=== PATIENT | female | born 1940 | race Caucasian/White ===

== ENCOUNTER 2020-02-02 10:57 | Outpatient (CLI) | payer MEDICARE, SELFPAY ==
[2020-02-02 11:25] LABS: Basophils Percent Auto 0.2 % (0.2-1.2); Eosinophils Absolute Auto 0.1 K/mm3 (0-0.3); Eosinophils Percent Auto 2.6 % (0-4.4); Hematocrit 38.3 % (37.0-47.0); Hemoglobin 12.3 g/dL (12.0-15.0); Immature Granulocyte Absolute 0.01 K/mm3 (0.00-0.031); Immature Granulocyte Percent A 0.2 % (0-0.5); Lymphocytes Absolute Auto 1.15 K/mm3 (0.9-3.2); Lymphocytes Percent Auto 21.3 % (18.3-44.2); Mean Corpuscular HGB Conc 32.1 g/dl (32-36); Mean Corpuscular Hemoglobin 28.8 pg (26-34); Mean Corpuscular Volume 89.7 fl (80-100); Mean Platelet Volume 9.5 fl (7.4-10.4); Monocytes Absolute Auto 0.4 K/mm3 (0.1-0.6); Monocytes Percent Auto 7.2 % (2.6-8.5); Neutrophils Absolute Auto 3.7 K/mm3 (1.3-6.7); Neutrophils Percent Auto 68.5 % (45.5-73.1); Platelet Count Result 273 k/mm3 (150-375); Red Blood Count 4.27 M/mm3 (4.2-5.4); Red Cell Distribution Width 15.8 % (11.5-14.5); White Blood Count 5.4 K/mm3 (4.5-10.0)
[2020-02-02 11:43] LABS: Alanine Aminotransferase 28 U/L (4-35); Albumin Level 3.9 g/dL (3.5-5.1); Alkaline Phosphatase 118 U/L (38-126); Aspartate Amino Transferase 38 U/L (14-36); Bilirubin,Total 0.3 mg/dL (0.2-1.3); Blood Urea Nitrogen 13 mg/dL (7-17); Calcium 8.7 mg/dL (8.4-10.2); Carbon Dioxide 25 mmol/L (22-30); Chloride 106 mmol/L (98-107); Estimated Glomerular Filt Rate > 60; Glucose 93 mg/dL (65-105); Hemoglobin A1C 5.5 % (<5.7); Potassium 4.2 mmol/L (3.4-5.0); Sodium 138 mmol/L (137-145)
== END 2020-02-02 10:58 | disposition home or self-care (01) ==
LOC: ANHLAB 11:09
PROVIDERS: PCP Nurse Practitioner; Visit Provider Nurse Practitioner
DX: R63.4 Abnormal weight loss (principal); R73.9 Hyperglycemia, unspecified; R53.83 Other fatigue; R19.7 Diarrhea, unspecified
CPT/HCPCS: 36415; 80053; 83036; 84443; 85025

== ENCOUNTER 2020-02-04 11:45 | Outpatient (CLI) | payer MEDICARE, SELFPAY | END 2020-02-04 11:46 | disposition home or self-care (01) | PROVIDERS: PCP Nurse Practitioner; Visit Provider Nurse Practitioner | DX: R63.4 Abnormal weight loss (principal); R19.7 Diarrhea, unspecified; R53.83 Other fatigue | CPT/HCPCS: 87045; 87046; 87177; 87209; 87324; 87427 ==

== ENCOUNTER 2020-11-17 11:41 | Outpatient (CLI) | payer MEDICARE, SELFPAY ==
[2020-11-17 11:57] LABS: Hematocrit 38.7 % (37.0-47.0); Hemoglobin 12.9 g/dL (12.0-15.0); Mean Corpuscular HGB Conc 33.3 g/dl (32-36); Mean Corpuscular Hemoglobin 32.3 pg (26-34); Mean Platelet Volume 9.3 fl (7.4-10.4); Platelet Count Result 293 k/mm3 (150-375); Red Blood Count 3.99 M/mm3 (4.2-5.4); Red Cell Distribution Width 13.8 % (11.5-14.5); White Blood Count 5.7 K/mm3 (4.5-10.0)
[2020-11-17 12:06] LABS: Alanine Aminotransferase 31 U/L (4-35); Alkaline Phosphatase 113 U/L (38-126); Anion Gap 5 mmol/L (8-16); Aspartate Amino Transferase 42 U/L (14-36); Bilirubin,Total 0.5 mg/dL (0.2-1.3); Blood Urea Nitrogen 12 mg/dL (7-17); Calcium 8.5 mg/dL (8.4-10.2); Carbon Dioxide 28 mmol/L (22-30); Chloride 102 mmol/L (98-107); Estimated Glomerular Filt Rate > 60; Glucose 104 mg/dL (65-105); Potassium 4.2 mmol/L (3.4-5.0); Sodium 135 mmol/L (137-145)
[2020-11-17 12:59] LABS: Free T4 Free Thyroxine 1.71 ng/mL (0.78-2.19)
== END 2020-11-17 11:42 | disposition home or self-care (01) ==
PROVIDERS: PCP Family Medicine; Visit Provider Nurse Practitioner Family
DX: R63.4 Abnormal weight loss (principal); E03.9 Hypothyroidism, unspecified
CPT/HCPCS: 36415; 80053; 84439; 84443; 85027

== ENCOUNTER 2021-07-09 13:44 | Outpatient (CLI) | payer MEDICARE, SELFPAY ==
--- NOTE | ~2021-07-09 | DEXA_ITS ---
Bone Density Report Name: China Green Age: 81 Sex: Female Ethnicity: White Date of : 1940 Indication: postmenopausal osteoporosis; monitoring treatment; height loss; prior fracture; hysterectomy; Referring Provider: Ashley Tapia Study: Bone densitometry was performed. Exam Date: July 09, 2021 Accession number: [id number] Bone Density: Region BMD T-score Z-score Classification AP Spine (L1-L4) 0.503 -4.9 -2.3 Osteoporosis Femoral Neck (Left) 0.417 -3.9 -1.6 Osteoporosis Total Hip (Left) 0.474 -3.8 -1.8 Osteoporosis World Health Organization criteria for BMD impression classify patients as: Normal (T-score at or above -1.0), Osteopenia (T-score between -1.0 and -2.5), or Osteoporosis (T-score at or below -2.5). 10-year Fracture Risk: FRAX not reported because: Some T-score for Spine Total or Hip Total or Femoral Neck at or below -2.5 Prior hip or vertebral fracture Treated for osteopor Previous Exams: Region Exam Age BMD T-score BMD Change BMD Change Date g/cm2 vs Baseline vs Previous AP Spine(L1-L4) 07/09/2021 81 0.503 -4.9 -0.173(-25.6%) -0.173(-25.6%) 03/30/2008 68 0.676 -3.4 Total Hip(Left) 07/09/2021 81 0.474 -3.8 -0.225(-32.2%) -0.225(-32.2%) 03/30/2008 68 0.699 -2.0 *Denotes significance at 95% confidence level, LSC for AP Spine = 0.022 g/cm2, LSC for Total Hip = 0.027 g/cm2 Clinical Information Provided by Patient: Have had a previous hip or vertebral fracture Has had a low trauma fracture Is being treated for osteoporosis Has used the following medications: Vitamin D, Calcium Has the following medical conditions: Hysterectomy Patient maximum height was 67 Drinks caffeinated beverages Onset of menses at age 14 Number of children 3 Impression: The patient has established osteoporosis, based on the Total Spine T-score and the existence of a prior fracture. The patient has risk factors, including: previous fracture. No significant bone loss was observed. Discussion: PATIENT UNDER TREATMENT WITH NO SIGNIFICANT BMD LOSS SINCE LAST EXAM. In an untreated patient, BMD typically declines with age. A lack of decline or gain is usually a sign that treatment is efficacious and fracture risk is reduced. It is important to ask patients whether they are taking their medications and to encourage continued and appropriate compliance with their osteoporosis therapies to reduce fracture risk. It is also important to review their risk factors and encourage appropriate calcium and vitamin D intakes, exercise, fall
--- NOTE | ~2021-07-09 | MM_ITS ---
EXAMINATION: MM screening luis BI w lucia HISTORY: Screening TECHNIQUE: Craniocaudal and mediolateral oblique 3-D tomosynthesis images were obtained and synthetic 2-D images were generated. CAD analysis was submitted and interpreted. COMPARISON: No prior mammogram is available for comparison at this institution. BREAST PARENCHYMAL COMPOSITION: The breasts are extremely dense, which lowers the sensitivity of mamm ography FINDINGS: There is no evidence of suspicious mass, calcification, or architectural distortion to sugg est malignancy in either breast. There has been no suspicious interval change. IMPRESSION: 1. No mammographic evidence of malignancy. 2. Recommend routine screening mammography in one year. BI-RADS Category 1: Negative Reviewed, dictated and finalized at location A.
== END 2021-07-09 13:45 | disposition home or self-care (01) ==
LOC: ANHIMG 13:46
PROVIDERS: PCP Family Medicine; Visit Provider Family Medicine
DX: Z12.31 Encounter for screening mammogram for malignant neoplasm of breast (principal); Z78.0 Asymptomatic menopausal state; M81.0 Age-related osteoporosis without current pathological fracture
CPT/HCPCS: 77063; 77067; 77080

== ENCOUNTER 2021-11-19 11:07 | Outpatient (CLI) | payer MEDICARE, SELFPAY ==
[2021-11-19 12:08] LABS: Alanine Aminotransferase 41 U/L (4-35); Albumin Level 4.3 g/dL (3.5-5.1); Alkaline Phosphatase 107 U/L (38-126); Anion Gap 5 mmol/L (8-16); Aspartate Amino Transferase 50 U/L (14-36); Bilirubin,Total 0.4 mg/dL (0.2-1.3); Blood Urea Nitrogen 18 mg/dL (7-17); Carbon Dioxide 25 mmol/L (22-30); Chloride 108 mmol/L (98-107); Estimated Glomerular Filt Rate > 60; Glucose 100 mg/dL (65-110); Potassium 4.7 mmol/L (3.4-5.0); Sodium 138 mmol/L (137-145)
[2021-11-19 12:54] LABS: Vitamin D 25 Hydroxy 40.6 ng/mL
== END 2021-11-19 11:08 | disposition home or self-care (01) ==
PROVIDERS: PCP Family Medicine; Visit Provider Family Medicine
DX: E87.5 Hyperkalemia (principal); E55.9 Vitamin D deficiency, unspecified; E03.9 Hypothyroidism, unspecified
CPT/HCPCS: 36415; 80053; 82306; 84443

== ENCOUNTER 2022-01-22 13:16 | Outpatient (CLI) | payer MEDICARE, SELFPAY ==
[2022-01-22 13:49] LABS: Alanine Aminotransferase 29 U/L (4-35); Alkaline Phosphatase 74 U/L (38-126); Anion Gap 6 mmol/L (8-16); Aspartate Amino Transferase 45 U/L (14-36); Bilirubin,Total 0.3 mg/dL (0.2-1.3); Blood Urea Nitrogen 14 mg/dL (7-17); Calcium 8.1 mg/dL (8.4-10.2); Carbon Dioxide 27 mmol/L (22-30); Chloride 106 mmol/L (98-107); Estimated Glomerular Filt Rate > 60; Glucose 95 mg/dL (65-110); Potassium 4.1 mmol/L (3.4-5.0); Sodium 139 mmol/L (137-145)
== END 2022-01-22 13:17 | disposition home or self-care (01) ==
LOC: ANHLAB 13:19
PROVIDERS: PCP Family Medicine; Visit Provider Family Medicine
DX: R74.8 Abnormal levels of other serum enzymes (principal)
CPT/HCPCS: 36415; 80053

== ENCOUNTER 2022-05-21 11:05 | Outpatient (CLI) | payer MEDICARE, SELFPAY ==
[2022-05-21 18:37] LABS: Basophils Percent Auto 0.4 % (0.2-1.2); Eosinophils Absolute Auto 0.2 K/mm3 (0-0.3); Eosinophils Percent Auto 3.9 % (0-4.4); Hemoglobin 12.6 g/dL (12.0-15.0); Immature Granulocyte Absolute 0.01 K/mm3 (0.00-0.031); Immature Granulocyte Percent A 0.2 % (0-0.5); Lymphocytes Absolute Auto 1.16 K/mm3 (0.9-3.2); Lymphocytes Percent Auto 20.5 % (18.3-44.2); Mean Corpuscular HGB Conc 31.5 g/dl (32-36); Mean Corpuscular Volume 95.2 fl (80-100); Mean Platelet Volume 9.9 fl (7.4-10.4); Monocytes Absolute Auto 0.5 K/mm3 (0.1-0.6); Monocytes Percent Auto 8.1 % (2.6-8.5); Neutrophils Absolute Auto 3.8 K/mm3 (1.3-6.7); Neutrophils Percent Auto 66.9 % (45.5-73.1); Platelet Count Result 355 k/mm3 (150-375); Red Cell Distribution Width 13.4 % (11.5-14.5); White Blood Count 5.7 K/mm3 (4.5-10.0)
[2022-05-21 18:49] LABS: Alanine Aminotransferase 29 U/L (6-35); Albumin Level 4.3 g/dL (3.5-5.1); Alkaline Phosphatase 85 U/L (38-126); Anion Gap 8 mmol/L (8-16); Aspartate Amino Transferase 42 U/L (14-36); Bilirubin,Total 0.4 mg/dL (0.2-1.3); Blood Urea Nitrogen 17 mg/dL (7-17); Calcium 8.7 mg/dL (8.4-10.2); Carbon Dioxide 29 mmol/L (22-30); Chloride 101 mmol/L (98-107); Cholesterol 182 mg/dL (0-200); Estimated Glomerular Filt Rate > 60; Glucose 87 mg/dL (65-110); HDL Direct 40 mg/dL; Potassium 4.6 mmol/L (3.4-5.0); Sodium 138 mmol/L (137-145); Triglycerides 86 mg/dL (<150)
[2022-05-21 18:59] LABS: LDL Cholesterol Direct 92 mg/dL
[2022-05-21 19:39] LABS: Vitamin D 25 Hydroxy 58.3 ng/mL
== END 2022-05-21 11:06 | disposition home or self-care (01) ==
LOC: ANHGOSHLAB 11:10
PROVIDERS: PCP Family Medicine; Visit Provider Family Medicine
DX: E03.9 Hypothyroidism, unspecified (principal); E55.9 Vitamin D deficiency, unspecified; F41.9 Anxiety disorder, unspecified; R74.8 Abnormal levels of other serum enzymes; Z13.220 Encounter for screening for lipoid disorders
CPT/HCPCS: 36415; 80053; 80061; 82306; 84443; 85025

== ENCOUNTER 2022-12-03 14:53 | Outpatient (CLI) | payer MEDICARE, SELFPAY ==
[2022-12-03 19:09] LABS: Alanine Aminotransferase 31 U/L (6-35); Albumin Level 3.7 g/dL (3.5-5.1); Alkaline Phosphatase 86 U/L (38-126); Anion Gap 5 mmol/L (8-16); Aspartate Amino Transferase 43 U/L (14-36); Bilirubin,Total 0.4 mg/dL (0.2-1.3); Blood Urea Nitrogen 17 mg/dL (7-17); Calcium 8.1 mg/dL (8.4-10.2); Carbon Dioxide 30 mmol/L (22-30); Chloride 100 mmol/L (98-107); Estimated Glomerular Filt Rate > 60; Glucose 91 mg/dL (65-110); Potassium 4.3 mmol/L (3.4-5.0); Sodium 135 mmol/L (137-145)
== END 2022-12-03 14:54 | disposition home or self-care (01) ==
LOC: ANHGOSHLAB 14:55
PROVIDERS: PCP Family Medicine; Visit Provider Family Medicine
DX: E03.9 Hypothyroidism, unspecified (principal); R74.8 Abnormal levels of other serum enzymes
CPT/HCPCS: 36415; 80053; 84443

== ENCOUNTER → 2023-04-08 13:32 | Outpatient (CLI) | payer MEDICARE, SELFPAY ==
--- NOTE | ~2023-04-08 | XR_ITS ---
XR mandible min 4V 04/08/2023 13:48 Indication: Left-sided jaw pain Procedure: 5 views of the mandible Comparison: No prior studies for comparison. Findings: Osteopenia. Orbits are grossly intact. No focal skull abnormalities. No acute mandibular fr acture. Mastoids are pneumatized. Paranasal sinuses are grossly unremarkable. No significant nasal se ptal deviation. Impression: 1: No acute abnormality of the mandible. If there is continued concern for fracture, consider correla tion with CT. Reviewed, dictated and finalized at location [] Impression: 1: No acute abnormality of the mandible. If there is continued concern for frac ture, consider correlation with CT.
== END ==
PROVIDERS: PCP Family Medicine; Visit Provider Nurse Practitioner Family
DX: R68.84 Jaw pain (principal); G89.29 Other chronic pain
CPT/HCPCS: 70110

== ENCOUNTER 2023-05-26 10:06 | Outpatient (CLI) | payer MEDICARE, SELFPAY ==
[2023-05-26 19:17] LABS: Alanine Aminotransferase 48 U/L (6-35); Albumin Level 4.1 g/dL (3.5-5.1); Alkaline Phosphatase 100 U/L (38-126); Anion Gap 7 mmol/L (8-16); Aspartate Amino Transferase 63 U/L (14-36); Bilirubin,Total 0.4 mg/dL (0.2-1.3); Blood Urea Nitrogen 18 mg/dL (7-17); Calcium 9.1 mg/dL (8.4-10.2); Carbon Dioxide 28 mmol/L (22-30); Chloride 102 mmol/L (98-107); Cholesterol 205 mg/dL (0-200); Estimated Glomerular Filt Rate > 60; Glucose 77 mg/dL (65-110); HDL Direct 32 mg/dL; Potassium 5.4 mmol/L (3.4-5.0); Sodium 137 mmol/L (137-145); Triglycerides 101 mg/dL (<150)
[2023-05-26 19:23] LABS: Basophils Percent Auto 0.2 % (0.2-1.2); Eosinophils Absolute Auto 0.5 K/mm3 (0-0.3); Eosinophils Percent Auto 8.3 % (0-4.4); Hematocrit 40.1 % (37.0-47.0); Hemoglobin 12.9 g/dL (12.0-15.0); Immature Granulocyte Absolute 0.01 K/mm3 (0.00-0.031); Immature Granulocyte Percent A 0.2 % (0-0.5); Lymphocytes Absolute Auto 1.23 K/mm3 (0.9-3.2); Lymphocytes Percent Auto 22.3 % (18.3-44.2); Mean Corpuscular HGB Conc 32.2 g/dl (32-36); Mean Corpuscular Hemoglobin 32.3 pg (26-34); Mean Corpuscular Volume 100.3 fl (80-100); Mean Platelet Volume 10.5 fl (7.4-10.4); Monocytes Absolute Auto 0.5 K/mm3 (0.1-0.6); Monocytes Percent Auto 9.4 % (2.6-8.5); Neutrophils Absolute Auto 3.3 K/mm3 (1.3-6.7); Neutrophils Percent Auto 59.6 % (45.5-73.1); Platelet Count Result 366 k/mm3 (150-375); Red Cell Distribution Width 14.8 % (11.5-14.5); White Blood Count 5.5 K/mm3 (4.5-10.0)
[2023-05-26 19:29] LABS: LDL Cholesterol Direct 132 mg/dL
[2023-05-26 20:06] LABS: Vitamin B12 < 159.0 pg/mL (239-931)
[2023-05-26 20:29] LABS: Vitamin D 25 Hydroxy 14.2 ng/mL
== END 2023-05-26 10:07 | disposition home or self-care (01) ==
LOC: ANHGOSHLAB 10:08
PROVIDERS: PCP Family Medicine; Visit Provider Family Medicine
DX: E78.5 Hyperlipidemia, unspecified (principal); Z79.899 Other long term (current) drug therapy; E55.9 Vitamin D deficiency, unspecified; E03.9 Hypothyroidism, unspecified; E53.8 Deficiency of other specified B group vitamins; R63.4 Abnormal weight loss
CPT/HCPCS: 36415; 80053; 80061; 82306; 82607; 84443; 85025

== ENCOUNTER 2023-11-18 11:43 | Outpatient (CLI) | payer MEDICARE, OTHER, SELFPAY ==
[2023-11-18 15:00] LABS: Vitamin D 25 Hydroxy 27.6 ng/mL
[2023-11-18 15:06] LABS: Alanine Aminotransferase 61 U/L (6-35); Albumin Level 3.4 g/dL (3.5-5.1); Alkaline Phosphatase 114 U/L (38-126); Anion Gap 6 mmol/L (8-16); Aspartate Amino Transferase 65 U/L (14-36); Bilirubin,Total 0.3 mg/dL (0.2-1.3); Blood Urea Nitrogen 23 mg/dL (7-17); Calcium 8.7 mg/dL (8.4-10.2); Carbon Dioxide 27 mmol/L (22-30); Chloride 106 mmol/L (98-107); Estimated Glomerular Filt Rate > 60; Glucose 89 mg/dL (65-110); Potassium 4.3 mmol/L (3.4-5.0); Sodium 139 mmol/L (137-145)
== END 2023-11-18 11:44 | disposition home or self-care (01) ==
LOC: ANHGOSHLAB 11:45
PROVIDERS: PCP Family Medicine; Visit Provider Family Medicine
DX: E03.9 Hypothyroidism, unspecified (principal); E55.9 Vitamin D deficiency, unspecified; R74.8 Abnormal levels of other serum enzymes
CPT/HCPCS: 36415; 80053; 82306; 84439; 84443; 84480

== ENCOUNTER 2024-02-18 09:41 | Outpatient (CLI) | payer MEDICARE, OTHER, SELFPAY ==
--- NOTE | ~2024-02-18 | DEXA_ITS ---
Bone Density Report Name: CHARLEEN BERNSTEIN Age: 83 Sex: Female Ethnicity: White Date of : 1940 Indication: postmenopausal osteoporosis; parental hip fracture; height loss; history of glucocorticoids; prior fracture; hysterectomy; Referring Provider: ADRY GREGORY Study: Bone densitometry was performed. Exam Date: February 18, 2024 Accession number: [id number] Bone Density: Region BMD T-score Z-score Classification AP Spine(L1, L2, L3) 0.464 -5.0 -2.3 Osteoporosis Femoral Neck (Left) 0.480 -3.3 -0.9 Osteoporosis Total Hip (Left) 0.456 -4.0 -1.8 Osteoporosis World Health Organization criteria for BMD impression classify patients as: Normal (T-score at or above -1.0), Osteopenia (T-score between -1.0 and -2.5), or Osteoporosis (T-score at or below -2.5). 10-year Fracture Risk: FRAX not reported because: Some T-score for Spine Total or Hip Total or Femoral Neck at or below -2.5 Prior hip or vertebral fracture Previous Exams: Region Exam Age BMD T-score BMD Change BMD Change Date g/cm2 vs Baseline vs Previous AP Spine (L1-L3) 02/18/2024 83 0.464 -5.0 -0.055 (-10.6% -0.055 (-10.6% 07/09/2021 81 0.519 -4.5 Total Hip(Left) 02/18/2024 83 0.456 -4.0 -0.019 (-3.9%) -0.019 (-3.9%) 07/09/2021 81 0.474 -3.8 *Denotes significance at 95% confidence level, LSC for AP Spine = 0.022 g/cm2, LSC for Total Hip = 0.027 g/cm2 Clinical Information Provided by Patient: Have had a previous hip or vertebral fracture Has had a low trauma fracture Parent has had a hip fracture Has taken Glucocorticoids Has used the following medications: Prolia (i.e. denosumab), Vitamin D Has the following medical conditions: Hysterectomy, ENLARGED THYROID Patient maximum height was 67 Drinks caffeinated beverages Onset of menses at age 13 Number of children 3 Impression: The patient has established osteoporosis, based on the Total Spine T-score and the existence of a prior fracture. The patient has risk factors, including: parental hip fracture, previous fracture, history of glucocorticoid therapy. The BMD for the AP Spine (L1-L3) decreased, changing by -10.6% since the last DXA exam. Discussion: HIGH RISK OF FRACTURE. BONE DENSITY IS UNDESIRABLY LOW AT ONE OR MORE SKELETAL SITES, CONSISTENT WITH POSTMENOPAUSAL OSTEOPOROSIS. This patient's lowest T-score, in a patient who has previously fractured, meets the World Health Organization's (WHO) criteria for severe osteoporosis. In untreated patients, the risk of osteoporotic fracture increases heber
== END 2024-02-18 09:42 | disposition home or self-care (01) ==
LOC: ANHIMG 09:42
PROVIDERS: PCP Family Medicine; Visit Provider Family Medicine
DX: Z78.0 Asymptomatic menopausal state (principal); M81.0 Age-related osteoporosis without current pathological fracture
CPT/HCPCS: 77080

== ENCOUNTER 2024-06-09 10:01 | Outpatient (CLI) | payer MEDICARE, OTHER, SELFPAY ==
[2024-06-09 12:51] LABS: Basophils Percent Auto 0.2 % (0.2-1.2); Eosinophils Absolute Auto 0.1 K/mm3 (0-0.3); Eosinophils Percent Auto 2.1 % (0-4.4); Hematocrit 39.8 % (37.0-47.0); Hemoglobin 12.5 g/dL (12.0-15.0); Immature Granulocyte Absolute 0.01 K/mm3 (0.00-0.031); Immature Granulocyte Percent A 0.2 % (0-0.5); Lymphocytes Absolute Auto 1.13 K/mm3 (0.9-3.2); Lymphocytes Percent Auto 18.6 % (18.3-44.2); Mean Corpuscular HGB Conc 31.4 g/dl (32-36); Mean Corpuscular Hemoglobin 28.1 pg (26-34); Mean Corpuscular Volume 89.4 fl (80-100); Mean Platelet Volume 10.7 fl (7.4-10.4); Monocytes Absolute Auto 0.4 K/mm3 (0.1-0.6); Monocytes Percent Auto 6.6 % (2.6-8.5); Neutrophils Absolute Auto 4.4 K/mm3 (1.3-6.7); Neutrophils Percent Auto 72.3 % (45.5-73.1); Platelet Count Result 311 k/mm3 (150-375); Red Blood Count 4.45 M/mm3 (4.2-5.4); Red Cell Distribution Width 14.9 % (11.5-14.5); White Blood Count 6.1 K/mm3 (4.5-10.0)
[2024-06-09 12:57] LABS: Cholesterol 172 mg/dL (0-200); HDL Direct 33 mg/dL; Triglycerides 113 mg/dL (<150)
[2024-06-09 13:02] LABS: Albumin Level 3.8 g/dL (3.5-5.1); Anion Gap 9 mmol/L (4-12); Blood Urea Nitrogen 18 mg/dL (7-17); Calcium 8.6 mg/dL (8.4-10.2); Carbon Dioxide 24 mmol/L (22-30); Chloride 106 mmol/L (98-107); Estimated Glomerular Filt Rate > 60; Glucose 92 mg/dL (65-110); Potassium 4.3 mmol/L (3.4-5.0); Sodium 139 mmol/L (137-145)
[2024-06-09 13:07] LABS: Parathyroid Intact 125.2 pg/mL (7.5-53.5)
[2024-06-09 13:08] LABS: LDL Cholesterol Direct 115 mg/dL
[2024-06-09 13:37] LABS: Free T4 Free Thyroxine 1.64 ng/mL (0.78-2.19); Vitamin D 25 Hydroxy 16.3 ng/mL
[2024-06-11 02:19] LABS: Protein, Total 7.4 g/dL (6.1-8.1)
[2024-06-11 08:15] LABS: Triiodothyronine T3 Free 3.7 pg/mL (2.3-4.2)
[2024-06-11 12:03] LABS: Albumin 3.6 g/dL (3.8-4.8); Alpha 1 Globulin 0.3 g/dL (0.2-0.3); Alpha 2 Globulin 0.7 g/dL (0.5-0.9); Beta 1 Globulin 0.5 g/dL (0.4-0.6); Gamma Globulin 1.8 g/dL (0.8-1.7)
[2024-06-14 19:13] LABS: Immunofixation, Serum Normal pattern.
== END 2024-06-09 10:02 | disposition home or self-care (01) ==
PROVIDERS: Nurse Practitioner Family; PCP Family Medicine; Visit Provider Internal Medicine Endocrinology, Diabetes & Metabolism
DX: E03.9 Hypothyroidism, unspecified (principal); E55.9 Vitamin D deficiency, unspecified; M81.0 Age-related osteoporosis without current pathological fracture; R63.4 Abnormal weight loss; E04.9 Nontoxic goiter, unspecified; I10 Essential (primary) hypertension; E78.5 Hyperlipidemia, unspecified
CPT/HCPCS: 36415; 80061; 80069; 82306; 83970; 84155; 84165; 84439; 84443; 84481; 85025; 86334

== ENCOUNTER 2024-06-14 11:50 | Outpatient (NON) | payer MEDICARE, OTHER, SELFPAY ==
[2024-06-14 14:37] LABS: Total Volume 24 Hour Urine 1500 ml
[2024-06-14 14:50] LABS: Creatinine 24 Hour Urine 0.5 gm/24 (0.8-1.8); Creatinine Urine 36.1 mg/dL
[2024-06-15 15:18] LABS: Creatinine, 24 Hr Urine 0.56 g/24 h (0.50-2.15); Total Protein/Creatinine Ratio 568 mg/g creat (<150)
[2024-06-18 11:39] LABS: Abnormal Protein Band 1 78 mg/24 h (NONE DETECTED); Albumin 24 Hr Urine 15 %
[2024-06-24 12:37] LABS: Total Volume 1500 mL
== END 2024-06-14 11:51 | disposition home or self-care (01) ==
LOC: ANHGOSHLAB 11:52
PROVIDERS: PCP Family Medicine; Visit Provider Internal Medicine Endocrinology, Diabetes & Metabolism
DX: M81.0 Age-related osteoporosis without current pathological fracture (principal); E03.9 Hypothyroidism, unspecified; E55.9 Vitamin D deficiency, unspecified; R63.4 Abnormal weight loss
CPT/HCPCS: 81050; 82340; 82530; 82570; 84156; 84166

== ENCOUNTER 2024-06-30 13:42 | Outpatient (CLI) | payer MEDICARE, OTHER, SELFPAY | END 2024-06-30 13:43 | disposition home or self-care (01) | LOC: ANHGOSHLAB 13:45 | PROVIDERS: PCP Family Medicine; Visit Provider Internal Medicine Endocrinology, Diabetes & Metabolism | DX: R80.9 Proteinuria, unspecified (principal) | CPT/HCPCS: 86335 ==

== ENCOUNTER 2024-11-22 14:06 | Outpatient (CLI) | payer MEDICARE, OTHER, SELFPAY ==
--- OUTSIDE RECORDS SUMMARY | 2024-11-22 14:52 | XMS_ITS | Referral Summary ---
Author Organization [facility] Address [address] [place] [address] Care Team Providers Care Sap Gatherer Name Role Phone Juvenal Tapia MD Primary Care Provider Allergies Active Allergy Reactions Criticality Noted Date Comments Loperamide Hives Medium 04/29/2023 Nifedipine Prednisone Hives Reaction: Hives, , Medications levothyroxine (SYNTHROID) 75 mcg tablet Take 1 tablet (75 mcg total) by mouth medical chief technician before breakfast Active vit C/E/Zn/coppr/osvaldo tein/zeaxan (PRESERVISION AREDS-2 ORAL) Take 1 capsule by mouth daily Active CALCIUM ORAL Take 2 capsules by mouth daily Active cyanocobalamin, vitamin B-12, (VITAMIN B-12 ORAL) Take 1 Caplet by mouth as needed Couple times a month Active iron 18 mg tablet Take by mouth Active vitamin D3-vitamin K2 25 mcg (1,000 unit)-90 mcg tablet,disinteg rating Take 1 capsule by mouth daily Active diphenhydrAMINE (BENADRYL) 25 mg capsule Take 1 tablet/capsule (25 mg total) by mouth 4 (four) times a day as needed for itching for up to 10 doses 30 capsule 3 Active cholestyramine (QUESTRAN) 4 gram packet Take 1 packet by mouth nightly for 5 doses 5 packet 3 Active Additional Information Patient not taking.Reported on 07/24/2023 cholecalciferol (VITAMIN D-3) 50,000 unit capsule Take 1 capsule (50,000 Units total) by mouth 2 (two) times a week Active Active Problems Problem Noted Date Diagnosed Date Family history of colon cancer 05/13/2023 Colitis 05/13/2023 Bilious vomiting with nausea 05/02/2023 Hypokalemia 04/30/2023 Stage 3a chronic kidney disease 04/30/2023 Metabolic acidosis, increased anion gap 04/30/20 Dehydration 04/28/2023 Acute colitis 04/28/2023 Diarrhea of presumed infectious origin Hyponatremia 04/28/2023 Hypothyroidism 04/28/2023 Moderate malnutrition (CMS/HCC) 04/28/2023 Contusion of left shoulder 09/18/2018 Contusion of scalp 09/18/2018 Closed head injury 09/18/2018 History of musculoskeletal disease 08/25/2013 Overview (01/30/2017): History of osteoporosis Social History Tobacco Use Types Packs/Day Years Used Date Smoking Tobacco: Never Smokeless Tobacco: Never Tobacco Cessation:Counseling Given: Not Answered Alcohol Use Standard Drinks/Week Comments No 0 (1 standard drink = 0.6 oz pur e alcohol) AUDIT-C Answer Date Recorded Q1: How often do you have a drink containing alc ohol? Never 07/30/2023 Average Number of Drinks Not on file 023 Frequency of Binge Drinking Not on file 01/2023 Personal Safety Answer Date Recorded Have you ever been in or are you currently in a harmful physical or emotional relationship or is someone making you feel afraid or unsafe? Denies 07/09/2023 Comments No Sex and Gender Information Value Date Recorded Sex Assigned at Not on file Legal Sex Female 7:54 PM SAP GATHERER Gender Identity Not on file Sexual Orientation Not on file Last Filed Vital Signs Vital Sign Reading Time Taken Comments Blood Pressure 150/62 07/29/2024 10:55 AM CDT Sm. Adult Cuff Pulse 71 07/29/2024 10:55 AM CDT Temperature 36.8 ??C (98.2 ??F) 07/09/2023 1 0:33 AM CDT Respiratory Rate 16 07/29/2024 10:5 5 AM CDT Oxygen Saturation 95% 07/29/2024 10: 55 AM CDT Inhaled Oxygen Concentration - - Weight 39.5 kg (87 lb 1.6 oz) 10/03/202 4 10:55 AM CDT Height 165.1 cm (5' 5 ) 07/29/2024 10:5 5 AM CDT Body Mass Index 14.49 07/29/2024 10:55 AM CDT Plan of Treatment Not on file Procedures Procedure Name Priority Date/Time Associated Diagnosis Comments DEXA AXIAL SKELETON BONE DENSITY 1 OR MORE SITES Routine 09/05/2017 4:59 PM SAP GATHERER from Last 3 Months or Most Recently Relevant to Health Maintenance Results * Dexa Axial Skeleton Bone Density 1 or 2 Site (09/05/2017 4:59 PM SAP GATHERER) Anatomical Region Laterality Modality N/A Nuclear Medicine 09/05/2017 4:59 PM SAP GATHERER Narrative 09/05/2017 5:40 PM SAP GATHERER DEXA Bone Density Axial ??Acc#: ??[id number] DATE OF EXAM: ??Sep 05 2017 ?? EXAM: DEXA Bone Density Axial HISTORY: Age related osteoporosis. ??Menopause/hysterectomy age 51.. FINDINGS: The mean bone mineral content of the lumbar spine is 32.98 g/cm2. The T-score is -4.5 consistent with osteoporosis. The mean bone mineral content of the left hip is 16.25 g/cm2. ??The neck T-score is -3.1. ??The total T-score is -3.6. ??This is consistent with osteoporosis. IMPRESSION: 1. ??Lumbar spine T score -4.5; osteoporosis. 2. ??Left hip T score -3.6; osteoporosis. ?? COMMENT: W.H.O. defines the T-score of between -1 and -2.5 as osteopenia, the level at which there may be an increased risk of developing osteoporosis and fractures in the future. ??Osteoporosis is defined as T-score lower than -2.5 (significantly increased risk of fracture due to osteoporosis). ??T-score is a comparison to peak bone mineral density of young adult reference population. ??Z-score is a comparison to bone mineral density of sex and age group population. ?? Electronically signed by: Jose R Weir Jr., M.D. Interpreting Physician: ??DR JOSE R WEIR M.D. ??Read on: ??Sep 05 2017 11:40A Transcribed by: ??PSC ??On: Sep 05 2017 11:38A Approved Electronically by: ??BHAVYA Aguilar, DR BORGES ??on: ??Sep 05 2017 11:38A Ordering DR: ALLISON JACKSON Attending DR: FREEMAN SANCHEZ Attending: ??FREEMAN SANCHEZ Requesting: ??ALLISON JACKSON Requesting Fax: ??-- Attending Fax: ??[phone] Attending ID: ??[id number] Requesting ID: ??[id number] Report To 1 ID: ??[id number] Report To 1 Name: ??FREEMAN SANCHEZ Report To 1 FAX: ??[phone] NextGen Order #: ?? Procedure Note Miscellaneous, Not In File - 09/13/2017 DEXA Bone Density Axial Acc#: [id number] DATE OF EXAM: Sep 05 2017 EXAM: DEXA Bone Density Axial HISTORY: Age related osteoporosis. Menopause/hysterectomy age 51.. FINDINGS: The mean bone mineral content of the lumbar spine is 32.98 g/cm2. The T-score is -4.5 consistent with osteoporosis. The mean bone mineral content of the left hip is 16.25 g/cm2. The neck T-score is -3.1. The total T-score is -3.6. This is consistent with osteoporosis. IMPRESSION: 1. Lumbar spine T score -4.5; osteoporosis. 2. Left hip T score -3.6; osteoporosis. COMMENT: W.H.O. defines the T-score of between -1 and -2.5 as osteopenia, the level at which there may be an increased risk of developing osteoporosis and fractures in the future. Osteoporosis is defined as T-score lower than -2.5 (significantly increased risk of fracture due to osteoporosis). T-score is a comparison to peak bone mineral density of young adult reference population. Z-score is a comparison to bone mineral density of sex and age group population. Electronically signed by: Jose R Weir Jr., M.D. Interpreting Physician: DR JOSE R WEIR M.D. Read on: Sep 05 2017 11:40A Transcribed by: PSC On: Sep 05 2017 11:38A Approved Electronically by: BHAVYA Aguilar, DR BORGES on: Sep 05 2017 11:38A Ordering DR: ALLISON JACKSON Attending DR: FREEMAN SANCHEZ Attending: FREEMAN SANCHEZ Requesting: ALLISON JACKSON Requesting Fax: -- Attending Attending ID: [id number] Requesting ID: [id number] Report To 1 ID: [id number] Report To 1 Name: FREEMAN SANCHEZ Report To 1 FAX: [phone] NextGen Order #: us Physician No IMG DXA PROCEDURES Edited Result - Final from Last 3 Months or Most Recently Relevant to Health Maintenance Insurance MEDICARE [facility] [id number] MEDICARE [employer] Advance Directives For more information, please contact: [phone] * Full Code (Latest Code Status on File) Date Activated Date Inactivated Comments 07/09/2023 8:04 AM 07/09/2023 2:58 PM * Full Code Date Activated Date Inactivated Comments 07/09/2023 8:04 AM 07/09/2023 8:04 AM * LIMITED - No CPR Date Activated Date Inactivated Comments 04/28/2023 6:22 PM 05/02/2023 7:13 PM Question Answer Comments Provide aggressive medical m anagement before a full cardiopulmonary arrest occurs. Use antibiotics, IV Fluids, and medical treatment unless specifically selected below: No intubationNo non-invasive ventilationNo internal / external pacemakerNo cardioversion Care Teams Sap Gatherer Relationship Specialty Start Date End Date Juvenal Tapia MD PCP - General Family Practice 10/10/22
--- OUTSIDE RECORDS SUMMARY | 2024-11-22 14:52 | XMS_ITS | Referral Summary ---
Author Organization [facility] Address [address] [facility] [place] [address] Care Team Providers Care Fly Rail Operator Name Role Phone Juvenal Tapia MD Primary Care Provider Source Comments [facility],non-owned Affiliates and Associated Physician Practices is amultiple site organization consisting of ambulatory clinics and hospital sitesin [place], [place], [place] and [place]. This disclosure is being madepursuant to the Care Everywhere program and may not contain all information available regarding this patient. Last updated 18.[facility] Allergies Active Allergy Reactions Criticality Noted Date Comments Acetaminophen Other 01/27/2024 Racing HR Nifedipine Rash,Other Medium 01/21/2013 Blotchy spots everywhere Orasone Itching Low 03/29/2013 Prednisone Urticaria Medium 01/27/2024 Medications * Be aware that medications may not be up to date on this document. Alwaysverify current medications with the patient. Medication Sig Dispensed Refills Start Date End Date Status levothyroxine (Synthroid) 75 MCG tablet Take 1 (one) tablet by mouth daily before breakfast Active cyanocobalamin (Vitamin B-12) injection INJECT 1000MCG (1ML) INTO THE MUSCLE ONCE MONTHLY 06/16/2023 Active diphenhydrAMINE (Benadryl Allergy) 25 MG capsule Take 1 (one) capsule by mouth 05/02/2023 Active vitamin D, ergocalciferol, (Drisdol) 1.25 MG (77367 UT) capsule Take 1 (one) capsule by mouth 02/15/2024 Active levothyroxine (Synthroid) 75 MCG tablet Take 1 (one) tablet by mouth once daily Active hydrOXYzine HCl (Atarax) 10 MG tablet TAKE 1 TABLET BY MOUTH EVERYDAY AT BEDTIME 90 tablet 1 06/09/2024 Active Active Problems Problem Noted Date Diagnosed Date Age-related cataract 08/10/2015 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, moderate stage 0 03/18/2015 Amblyopia of right eye 03/18/2015 Presence of intraocular lens 08/02/2013 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 Blepharitis 08/02/2013 Encounter for surgical after care following surgery of sense organs 05/31/2013 Cataract extraction status of eye 05/31/2013 Other osteoporosis without current pathological fracture 03/03/2013 Social History Tobacco Use Types Packs/Day Years Used Date Smoking Tobacco: Never Smokeless Tobacco: Never Alcohol Use Standard Drinks/Week Comments No 0 (1 standard drink = 0.6 oz pur e alcohol) PHQ-2 Answer Date Recorded Patient Health Questionnaire-2 Score 0 04/27/2024 Sex and Gender Information Value Date Recorded Sex Assigned at Not on file Gender Identity Not on file Sexual Orientation Not on file Last Filed Vital Signs Vital Sign Reading Time Taken Comments Blood Pressure 128/68 04/27/2024 3:00 PM CDT Pulse 85 04/27/2024 3:00 PM CDT Temperature 36.6 ??C (97.8 ??F) 03/31/2013 12:59 PM C DT Respiratory Rate 16 04/27/2024 3:00 PM CDT Oxygen Saturation 95% 04/27/2024 3:00 PM CDT Inhaled Oxygen Concentration - - Weight 39.6 kg (87 lb 6.4 oz) 04/27/2024 3:00 PM CDT Height 165.1 cm (5' 5 ) 04/27/2024 3:00 PM CDT Body Mass Index 14.54 04/27/2024 3:00 PM CDT Plan of Treatment Upcoming Encounters Date Type Department Care Team (Late st Contact Info) Description 02/24/2025 11:15 AM CDT Office Visit [facility] - Rheumatology [id number] [place] [address] [place] [address] [facility] [address] [facility] [address] [place] [address] Care Teams Fly Rail Operator Relationship Specialty Start Date End Date Juvenal Tapia MD [address] [place] [address] PCP - General Family Medicine 12/23/23
--- OUTSIDE RECORDS SUMMARY | 2024-11-22 14:52 | XMS_ITS | Continuity of Care Document ---
Author Organization [facility] Address [address] [place] [address] [place] [address] Phone Care Team Providers Care Night Warehouse Manager Name Role Phone Nils Charles MD Unavailable Unavailable Allergies, Adverse Reactions, Alerts Substance Reaction Status Criticality nifedipine Active No Information prednisone Active No Information Medications Medication Instructions Dosage Effective Dates (start - stop) Status Comments iron 325 mg (65 mg iron) tablet take 1 tablet by oral route every day 325 MG - Active Vitamin D3 2,000 unit tablet - Active AREDS 2 ORAL CAPSULE - Active Caltrate 600 + D 600 mg (1,500 mg)-800 unit chewable tablet - Active Refresh Tears 0.5 % eye drops - Active Tirosint 75 mcg capsule take 1 capsule by oral route every day 75 MCG - Active Procedures Procedure Date Post-op Follow-up Visit No Charge Refraction No Charge Optomap Fundus Photos 018 After Cataract Laser Surgery Eye Exam, New Patient Advance Directives Directive Yes / No Effective Date File Name No Information Encounters Encounter Description Practice Location Reason(s) For Visit Diagnoses Date Provider Providers Copied on Encounter [facility], [address] [place] [address] [address], [place], [place], [id number], [place] tel:[phone] NICOLE FAGAN Professional 2-4 wk YAG PC PO (chief complaint) Encounter for examination following surgery 8 Melvin Wray. [address] [facility], [address], [place], [place], [id number], [place]. tel:[phone] [facility], [address], [place], [place], [id number], [place] tel:[phone] NICLOE Ramos RYLAN Professional YAG-PC Eval (chief complaint) Bilateral artificial lens implantOther secondary cataract, right eyeOther secondary cataract, left eye 8 Carlos Nino. [address], [address], [place], [place], [address], [place]. tel:[phone] Family History Family Member Type Diagnosis Age At Onset Problem (finding) Family history of glauc ron Brother Problem (finding) degenerative disorder o f macula Payers Payer name Insurance type Covered democrat ID Authoriza tion(s) No Information Social History Type Description Quantity Date Captured Comments Alcohol Use Details No Caffeine Use Details 8 oz per day Tobacco Use Status Current non-smoker 18 Smoking Status Never smoker Non-Smoking Tobacco Use Details : No Details Available : No Details Available Sex Female Gender Identity Female Chief Complaint And Reason For Visit From encounter dated '03/24/2018 09:45'. 2-4 wk YAG PC PO (chief complaint). Description: The 78 year old female presents for evaluation of 2-4 wk YAG PC PO in the right eye. Pt reports VA is a little bit better since YAG PC, OD. Pt reportsshe did get some floating spots in OD, but they are improving. Pt denies any flashes of light and no pain, irritation or discomfort today, OU. Reason For Referral Reason For Referral No Information History Of Present Illness Encounter Date Complaint History Of Prese nt Illness 2-4 wk YAG PC PO The 78 year old female presents for evaluation of 2-4 wk YAG PC PO in the right eye. Pt reports VA is a little bit better since YAG PC, OD. Pt reports she did get some floating spots in OD, but they are improving. Pt denies any flashes of light and no pain, irritation or discomfort today, OU. YAG-PC Eval The 77 year old female presents for YAG-PC Eval in the right eye and left eye. Hx Macular Degeneration OU, PCIOL OU, Lazy Eye OD. Pt currently using Areds 2 BID PO, and Refresh PRN. Pt states vision is pretty good, OD vision had declined at last visit with OD, but pt does not notice any difference to be able to pin point the time frame, OD has always been the weaker eye, with low vision. Pt being seen by Dr. Smalls. Pt denies any new flashers, floaters, pain or discomfort at this time. Pt reports Dr. Smalls informed said no dilation prior to being seen by Dr. Pt reports over 3 months ago OD at temporal corner had half triangle that would flash for about 1 minute then go away, pt has not had the happen since then. Pt reports having glare issues when car lights are coming towards her at night seems like they have on bright lights. Functional Status Date Functional Assessmen t No Information Instructions Date Instruction Additional Infor sade Impression/Plan Impression/Plan Educational material provided Re lated to Other secondary cataract, right eye Educational material provided Re lated to Bilateral artificial lens implant Educational material provided Re lated to Bilateral artificial lens implant Assessments Type Assessment Date assessment Encounter for examination follow ing surgery Patient Care Teams Name Effective Dates (start - stop) Status Members No Information
--- OUTSIDE RECORDS SUMMARY | 2024-11-22 14:52 | XMS_ITS | Clinical Summary ---
Author Organization [facility] Care Team Providers Care [employer] Distributor Name Role Phone Unavailable Primary Care Provider Unavailabl e Immunizations Immunization Administration Dates Next Due Covid-19, Mrna, Lnp-s, Pf, 30 Mcg/0.3 Ml Dose (P fizer) 10/05/2021 Social History Tobacco Use Types Packs/Day Years Used Date Smoking Tobacco: Never Assessed Comments Unknown Sex and Gender Information Value Date Recorded Sex Assigned at Not on file Legal Sex Female 10:33 PM CDT Gender Identity Not on file Sexual Orientation Not on file Plan of Treatment Health Maintenance Due Date Last Done Comments DEXA Bone Density 1940 Hepatitis C Virus (HCV) Screening 1940 Respiratory Syncytial Virus (RSV) Immunization (Adult) (1 - 1-dose 75+ series) 2016 Influenza Immunization (#1) 06/27/202407/27, 07/11/2020, 08/25/2019, Additional history exists SARS-COV-2 Immunization ( season) 2024 10/05/2021, 01/14/2021, 12/24/2020 Pneumococcal Immunization (50+ years) Completed 07/11/2020, 08/13/2013 Zoster Immunization Completed 10/26/2020, 0 DTaP/Tdap/Td Immunization Discontinued 05/17/2021 TdaP Immunization Completed 05/17/2021 Hepatitis B Immunization Aged Out No longer eligible based on patient's age to complete this topic Meningococcal Immunization (ACWY) Aged Out No longer eligible based on patient's age to complete this topic Rotavirus Immunization Aged Out No lo nger eligible based on patient's age to complete this topic
--- OUTSIDE RECORDS SUMMARY | 2024-11-22 14:52 | XMS_ITS | Patient Health Summary ---
Author Organization [facility] Address [address] [place] [address] Care Team Providers Care Medical Coding Specialist Name Role Phone Juvenal Tapia MD Primary Care Provider Note from [facility],non-owned Affiliates and Associated Physician Practices is amultiple site organization consisting of ambulatory clinics and hospital sitesin [place], [place], [place] and [place]. This disclosure is being madepursuant to the Care Everywhere program and may not contain all information available regarding this patient. Last updated 18.[facility] Allergies * Acetaminophen(Other) * Nifedipine(Rash,Other) -Medium Criticality * Orasone(Itching) -Low Criticality * Prednisone(Urticaria) -Medium Criticality Medications * Be aware that medications may not be up to date on this document. Alwaysverify current medications with the patient. * levothyroxine (Synthroid) 75 MCG tablet Take 1 (one) tablet by mouth daily before breakfast * cyanocobalamin (Vitamin B-12) injection(Started 06/16/2023) INJECT 1000MCG (1ML) INTO THE MUSCLE ONCE MONTHLY * diphenhydrAMINE (Benadryl Allergy) 25 MG capsule(Started 05/02/2023) Take 1 (one) capsule by mouth * vitamin D, ergocalciferol, (Drisdol) 1.25 MG (36905 UT) capsule(Started 02/15/2024) Take 1 (one) capsule by mouth * levothyroxine (Synthroid) 75 MCG tablet Take 1 (one) tablet by mouth once daily * hydrOXYzine HCl (Atarax) 10 MG tablet(Started 06/09/2024) TAKE 1 TABLET BY MOUTH EVERYDAY AT BEDTIME 1 refill by 06/09/2025 Active Problems Problem Noted Date Diagnosed Date [...] Mass Index 14.54 04/27/2024 3:00 PM CDT Procedures * DAY CARE HOME MOTHER ANTIBODY(Performed 01/05/2024) Performed for Elevated antinuclear antibody (TANIA) level, Elevated LFTs, Other osteoporosis without current pathological fracture, Osteoarthritis of multiple joints, unspecified osteoarthritis type, Vitamin D deficiency * ISRAEL STAINING PATTERNS REFLEXED(Performed 01/05/2024) Performed for Elevated antinuclear antibody (TANIA) level, Elevated LFTs, Other osteoporosis without current pathological fracture, Osteoarthritis of multiple joints, unspecified osteoarthritis type, Vitamin D deficiency * VITAMIN D 25-HYDROXY(Performed 01/05/2024) Performed for Vitamin D deficiency * ANCA VASCULITIS PANEL(Performed 01/05/2024) Performed for Elevated antinuclear antibody (TANIA) level, Elevated LFTs, Other osteoporosis without current pathological fracture, Osteoarthritis of multiple joints, unspecified osteoarthritis type, Vitamin D deficiency * CENTROMERE B ANTIBODIES(Performed 01/05/2024) Performed for Elevated antinuclear antibody (TANIA) level, Elevated LFTs, Other osteoporosis without current pathological fracture, Osteoarthritis of multiple joints, unspecified osteoarthritis type, Vitamin D deficiency * SCLERODERMA 70 (SCL) ANTIBODY(Performed 01/05/2024) Performed for Elevated antinuclear antibody (TANIA) level, Elevated LFTs, Other osteoporosis without current pathological fracture, Osteoarthritis of multiple joints, unspecified osteoarthritis type, Vitamin D deficiency * BARRAZA (SM) ANTIBODY BHASKAR(Performed 01/05/2024) Performed for Elevated antinuclear antibody (TANIA) level, Elevated LFTs, Other osteoporosis without current pathological fracture, Osteoarthritis of multiple joints, unspecified osteoarthritis type, Vitamin D deficiency * SS-A (SJOGREN'S) ANTIBODY(Performed 01/05/2024) Performed for Elevated antinuclear antibody (TANIA) level, Elevated LFTs, Other osteoporosis without current pathological fracture, Osteoarthritis of multiple joints, unspecified osteoarthritis type, Vitamin D deficiency * SS-B (SJOGREN'S) ANTIBODY(Performed 01/05/2024) Performed for Elevated antinuclear antibody (TANIA) level, Elevated LFTs, Other osteoporosis without current pathological fracture, Osteoarthritis of multiple joints, unspecified osteoarthritis type, Vitamin D deficiency * PROTEIN CREATININE RATIO URINE RANDOM PNL(Performed 01/05/2024) Performed for Elevated antinuclear antibody (TANIA) level, Elevated LFTs, Other osteoporosis without current pathological fracture, Osteoarthritis of multiple joints, unspecified osteoarthritis type, Vitamin D deficiency * RHEUMATOID FACTOR BLOOD QUANTITATIVE(Performed 01/05/2024) Performed for Elevated antinuclear antibody (TANIA) level, Elevated LFTs, Other osteoporosis without current pathological fracture, Osteoarthritis of multiple joints, unspecified osteoarthritis type, Vitamin D deficiency * CYCLIC CITRUL PEPTIDE ANTIBODY IGG/IGA (CCP)(Performed 01/05/2024) Performed for Elevated antinuclear antibody (TANIA) level, Elevated LFTs, Other osteoporosis without current pathological fracture, Osteoarthritis of multiple joints, unspecified osteoarthritis type, Vitamin D deficiency * DNA ANTIBODY DOUBLE STRANDED(Performed 01/05/2024) Performed for Elevated antinuclear antibody (TANIA) level, Elevated LFTs, Other osteoporosis without current pathological fracture, Osteoarthritis of multiple joints, unspecified osteoarthritis type, Vitamin D deficiency * COMPLEMENT C3 C4 PANEL(Performed 01/05/2024) Performed for Elevated antinuclear antibody (TANIA) level, Elevated LFTs, Other osteoporosis without current pathological fracture, Osteoarthritis of multiple joints, unspecified osteoarthritis type, Vitamin D deficiency * ANGIOTENSIN CONVERTING ENZYME BLOOD(Performed 01/05/2024) Performed for Elevated antinuclear antibody (TANIA) level, Elevated LFTs, Other osteoporosis without current pathological fracture, Osteoarthritis of multiple joints, unspecified osteoarthritis type, Vitamin D deficiency * TANIA BLOOD SCREEN W/REFLEX TITER(Performed 01/05/2024) Performed for Elevated antinuclear antibody (TANIA) level, Elevated LFTs, Other osteoporosis without current pathological fracture, Osteoarthritis of multiple joints, unspecified osteoarthritis type, Vitamin D deficiency * URIC ACID BLOOD(Performed 01/05/2024) Performed for Elevated antinuclear antibody (TANIA) level, Elevated LFTs, Other osteoporosis without current pathological fracture, Osteoarthritis of multiple joints, unspecified osteoarthritis type, Vitamin D deficiency * PROTEIN ELECTROPHORESIS BLOOD(Performed 01/05/2024) Performed for Elevated antinuclear antibody (TANIA) level, Elevated LFTs, Other osteoporosis without current pathological fracture, Osteoarthritis of multiple joints, unspecified osteoarthritis type, Vitamin D deficiency * ERYTHROCYTE SEDIMENTATION RATE(Performed 01/05/2024) Performed for Elevated antinuclear antibody (TANIA) level, Elevated LFTs, Other osteoporosis without current pathological fracture, Osteoarthritis of multiple joints, unspecified osteoarthritis type, Vitamin D deficiency * C-REACTIVE PROTEIN(Performed 01/05/2024) Performed for Elevated antinuclear antibody (TANIA) level, Elevated LFTs, Other osteoporosis without current pathological fracture, Osteoarthritis of multiple joints, unspecified osteoarthritis type, Vitamin D deficiency * COMPREHENSIVE METABOLIC PANEL(Performed 01/05/2024) Performed for Elevated antinuclear antibody (TANIA) level, Elevated LFTs, Other osteoporosis without current pathological fracture, Osteoarthritis of multiple joints, unspecified osteoarthritis type, Vitamin D deficiency * CK BLOOD(Performed 01/05/2024) Performed for Elevated antinuclear antibody (TANIA) level, Elevated LFTs, Other osteoporosis without current pathological fracture, Osteoarthritis of multiple joints, unspecified osteoarthritis type, Vitamin D deficiency * CBC W AUTO DIFFERENTIAL(Performed 01/05/2024) Performed for Elevated antinuclear antibody (TANIA) level, Elevated LFTs, Other osteoporosis without current pathological fracture, Osteoarthritis of multiple joints, unspecified osteoarthritis type, Vitamin D deficiency * XR HAND BILAT 3VW OR MORE(Performed 12/23/2023) Performed for Elevated antinuclear antibody (TANIA) level, Elevated LFTs, Other osteoporosis without current pathological fracture, Osteoarthritis of multiple joints, unspecified osteoarthritis type, Vitamin D deficiency Results * DAY CARE HOME MOTHER ANTIBODY (01/05/2024 2:36 PM CDT) DAY CARE HOME MOTHER Antibody 0.6 0.0 - 0.9 AI [employer] INSURANCE BILL Blood BLOOD SPECIMEN / Unknown 01/05/2024 2:36 PM CDT 01/05/2024 Narrative Resulting Agency Comment [facility] [address] ??[facility] [phone] Mike Campbell MD LAB - CHEMISTRY ORDE RABLES Performing Organization Address [facility] Co de Phone Number [employer] INSURANCE BILL [address] [place] [address] * CENTROMERE B ANTIBODIES (01/05/2024 2:35 PM CDT) Centromere B Antibody <0.2 0.0 - 0.9 AI [facility] BILL Blood BLOOD SPECIMEN / Unknown 01/05/2024 2:35 PM CDT 01/05/2024 Narrative Resulting Agency Comment [facility] performed [facility]: [facility] [address] [place] [address] Road ??[facility] [phone] Mike Campbell MD LAB - SEROLOGY ORDER YAZMIN Performing Organization Address [facility] Co de Phone Number [employer] INSURANCE BILL [address] [place] [address] * CYCLIC CITRUL PEPTIDE ANTIBODY IGG/IGA (CCP) (01/05/2024 2:35 PM CDT) CCP Antibodies IgG/IgA 14 0 - 19 units [facility] INSURANCE BILL Comment: ? Negative ? <20 ? Weak positive ?20 - 39 ? Moderate positive ??40 - 59 ? Strong positive ?>59 Blood BLOOD SPECIMEN / Unknown 01/05/2024 2:35 PM CDT 01/05/2024 Narrative Resulting Agency Comment Lab Testing performed at: [facility] ??[facility] [phone] Mike Campbell MD LAB - SEROLOGY ORDER YAZMIN [facility] INSURANCE BILL [address] [place] [address] * (ABNORMAL) ISRAEL STAINING PATTERNS REFLEXED (01/05/2024 2:35 PM CDT) Homogeneous Pattern NOT AVAILABLE [facility] INSURANCE BILL Comment:Result cannot be obt ained for this observation. Nucleolar Pattern NOT AVAILABLE [facility] INSURANCE BILL Comment:Result cannot be obt ained for this observation. Speckled Pattern >1:1280(A) [facility] INS[facility]ANCE BILL Comment:ICAP nomenclature: A C-2,4,5,29 Centromere Pattern NOT AVAILABLE [facility] INSURANCE BILL Comment:Result cannot be obt ained for this observation. Spindle Apparatus Pattern NOT AVAILABLE [facility] INSURANCE BILL Comment:Result cannot be obt ained for this observation. Nuclear Membrane Pattern NOT AVAILABLE [facility] INSURANCE BILL Comment:Result cannot be obt ained for this observation. Midbody Pattern NOT AVAILABLE [facility] INSURANCE BILL Comment:Result cannot be obt ained for this observation. Nuclear Dot Pattern >1:1280(A) [facility] INSURANCE BILL Comment:ICAP nomenclature: A C-6,7 PCNA Pattern NOT AVAILABLE [facility] INSURANCE BILL Comment:Result cannot be obt ained for this observation. Centriole Pattern NOT AVAILABLE [facility] INSURANCE BILL Comment:Result cannot be obt ained for this observation. Note [facility] INSURANCE BILL Comment: Pattern ?Potential Disease Association ?? Homogeneous ?Systemic Lupus Erythematosus, Drug Induced ? Systemic Lupus Erythematosus, Chronic ? Autoimmune hepatitis, Juvenile Idiopathic ? Arthritis ?? Speckled ? Sjogren Syndrome, Systemic Lupus ? Erythematosus, Subacute Cutaneous Lupus, ? Lupus, Congenital Heart Block, ? Mixed Connective Tissue Disease, ? Scleroderma-diffuse, Scleroderma-Autoimmune ? Myositis Overlap Syndrome, Systemic Lupus ? Gwetnkmbkvcwr-Beqcmfqnjlt-Rgbfwtsxtj ? Myositis Overlap Syndrome, Systemic ? Autoimmune Rheumatic Disease, ? Undifferentiated Connective Tissue Disease ?? Nucleolar ?Systemic Sclerosis, Scleroderma-Autoimmune ? Myositis Overlap Syndrome, Sjogren ? Syndrome, Raynaud phenomenon, Pulmonary ? Arterial Hypertension, Systemic Autoimmune ? Rheumatic Disease, Cancer ?? Centromere ? Scleroderma-CREST, Limited Cutaneous SSc, ? Raynaud's Phenomenon, Primary Biliary ? Cholangitis ?? Nuclear Dot ?Primary Biliary Cholangitis ?? Nuclear ?Primary Biliary Cholangitis, Autoimmune Membrane ? Hepatitis/Liver disease, Systemic Autoimmune ? Rheumatic Disease, Autoimmune Cytopenias, ? Linear Scleroderma, Antiphospholipid Syndrome ?? 01/05/2024 2:35 PM CDT 01/05/2024 Narrative Resulting Agency Comment Lab Testing performed at: [facility] [place] [address] ??[facility] [phone] Mike Campbell MD LAB - PATHOLOGY/CYTO LOGY ORDERABLES [facility] INSURANCE BILL [address] [place] [address] * URIC ACID BLOOD (01/05/2024 2:35 PM CDT) Uric Acid 6.2 3.1 - 7.9 mg/dL [facility] INSURANCE BILL Comment:Therapeutic target f or gout patients: <6.0 Blood BLOOD SPECIMEN / Unknown 01/05/2024 2:35 PM CDT 01/05/2024 Narrative Resulting Agency Comment Lab Testing performed at: [facility] [place] [address] ??[facility] [phone] Mike Campbell MD LAB - CHEMISTRY ORDE RABLES Performing Organization Address [facility]/ZIP Co de Phone Number [facility] INSURANCE BILL [address] [place] [address] * ANCA VASCULITIS PANEL (01/05/2024 2:35 PM CDT) Myeloperoxidase Antibody <0.2 0.0 - 0.9 units [facility] INSURANCE BILL Proteinase 3 Antibody <0.2 0.0 - 0.9 units [facility] INSURANCE BILL Cytoplasmic (C-ANCA) <1:20 Neg:<1:20 titer [facility] INSURANCE BILL p-ANCA Titer <1:20 Neg:<1:20 titer [facility] INSURANCE BILL Comment: The presence of positive fluorescence exhibiting P-ANCA or C-ANCA patterns alone is not specific for the diagnosis of Geronimo's Granulomatosis (WG) or microscopic polyangiitis. Decisions about treatment should not be based solely on ANCA IFA results. ??The International ANCA Group Consensus recommends follow up testing of positive sera with both LA-3 and MPO-ANCA enzyme immunoassays. As many as 5% serum samples are positive only by EIA. Ref. AM J Clin Pathol 1999;111:507-513. Atypical p-ANCA Titer <1:20 Neg:<1:20 titer [facility] INSURANCE BILL Comment: The atypical pANCA pattern has been observed in a significant percentage of patients with ulcerative colitis, primary sclerosing cholangitis and autoimmune hepatitis. Blood BLOOD SPECIMEN / Unknown 01/05/2024 2:35 PM CDT 01/05/2024 Narrative Resulting Agency Comment Lab Testing performed at: [facility] ??[facility] [phone] Mike Campbell MD LAB - CHEMISTRY MEGHANA MORELAND [facility] INSURANCE BILL [address] [place] [address] * BARRAZA (SM) ANTIBODY BHASKAR (01/05/2024 2:35 PM CDT) Barraza (BHASKAR) Antibody <0.2 0.0 - 0.9 AI [facility] INSURANCE BILL Blood BLOOD SPECIMEN / Unknown 01/05/2024 2:35 PM CDT 01/05/2024 Narrative Resulting Agency Comment Lab Testing performed at: [facility] [address] ??[facility] [phone] Mike Campbell MD LAB - CHEMISTRY MEGHANA MORELAND [facility] INSURANCE BILL [address] [place] [address] * RHEUMATOID FACTOR BLOOD QUANTITATIVE (01/05/2024 2:35 PM CDT) Rheumatoid Factor <10.0 <14.0 IU/mL [facility] INSURANCE BILL Blood BLOOD SPECIMEN / Unknown 01/05/2024 2:35 PM CDT 01/05/2024 Narrative Resulting Agency Comment Lab Testing performed at: [facility] [place] [address] ??[facility] [phone] Mike Campbell MD LAB - CHEMISTRY MEGHANA MORELAND [facility] INSURANCE BILL [address] [place] [address] * C-REACTIVE PROTEIN (01/05/2024 2:35 PM CDT) Pathologist [facility] C-Reactive Protein 3 0 - 10 mg/L [facility] INSURANCE BILL Blood BLOOD SPECIMEN / Unknown 01/05/2024 2:35 PM CDT 01/05/2024 Narrative Resulting Agency Comment Lab Testing performed at: [facility] [address] ??[place] [phone] Mike Campbell MD LAB - CHEMISTRY MEGHANA MORELAND Performing Organization Address [facility]/ZIP Co de Phone Number [facility] INS[facility] B[facility] [address] [place] [address] * (ABNORMAL) TANIA BLOOD SCREEN W/REFLEX TITER (01/05/2024 2:35 PM CDT) Pathologist [facility] TANIA Positive(A ) [facility] Comment: ?Negative ?? <1:80 ?Borderline ??1:80 ?Positive ?? >1:80 Blood BLOOD SPECIMEN / Unknown 01/05/2024 2:35 PM CDT 01/05/2024 Narrative Resulting Agency Comment Lab Testing performed at: [facility] [address] ??[place] [phone] Mike Campbell MD LAB - CHEMISTRY MEGHANA MORELAND Performing Organization Address City/[facility]/ZIP Co de Phone Number [facility] INSUR[facility] BILL [address] [place] [address] * SS-B (SJOGREN'S) ANTIBODY (01/05/2024 2:35 PM CDT) Sjogren's Antibodies (SSB) <0.2 0.0 - 0.9 AI [facility] INSURANCE BILL Blood BLOOD SPECIMEN / Unknown 01/05/2024 2:35 PM CDT 01/05/2024 Narrative Resulting Agency Comment Lab Testing performed at: [facility] [address] ??[facility] [phone] Mike Campbell MD LAB - CHEMISTRY MEGHANA MORELAND [facility] INSURANCE BILL [address] [place] [address] * SS-A (SJOGREN'S) ANTIBODY (01/05/2024 2:35 PM CDT) Sjogren's Antibodies (SSA) <0.2 0.0 - 0.9 AI [facility] INSURANCE BILL Blood BLOOD SPECIMEN / Unknown 01/05/2024 2:35 PM CDT 01/05/2024 Narrative Resulting Agency Comment Lab Testing performed at: [facility] [place] [address] ??[facility] [phone] Mike Campbell MD LAB - CHEMISTRY MEGHANA MORELAND [facility] INSURANCE BILL [address] [place] [address] * (ABNORMAL) SCLERODERMA 70 (SCL) ANTIBODY (01/05/2024 2:35 PM CDT) Antiscleroderm a-70 Antibody 2.0(H) 0.0 - 0.9 AI [facility] INSURANCE BILL Blood BLOOD SPECIMEN / Unknown 01/05/2024 2:35 PM CDT 01/05/2024 Narrative Resulting Agency Comment Lab [facility] performed at: [facility] [place] [address] ??[facility] [phone] Mike Campbell MD LAB - CHEMISTRY MEGHANA MORELAND [facility] INSURANCE BILL [address] [place] [address] * DNA ANTIBODY DOUBLE STRANDED (01/05/2024 2:35 PM CDT) Pathologist [facility] Anti-dsDNA Quantitative <1 0 - 9 IU/mL [facility] Comment: ?Negative ?<5 ?Equivocal ??5 - 9 ?Positive ?>9 Blood BLOOD SPECIMEN / Unknown 01/05/2024 2:35 PM CDT 01/05/2024 Narrative Resulting Agency Comment Lab Testing performed at: [facility] [address] [facility] ??[facility] [phone] Mike Campbell MD LAB - HEMATOLOGY ORD ERABLES [facility] INSURANCE BILL [address] [place] [address] * (ABNORMAL) VITAMIN D 25-HYDROXY (01/05/2024 2:35 PM CDT) [facility] Vitamin D, 25 Hydroxy 16.5(L) 30.0 - 100.0 ng/mL [facility] Comment: Vitamin D deficiency has been defined by the Carnegie of Medicine and an Endocrine Society practice guideline as a level of serum 25-OH vitamin D less than 20 ng/mL (1,2). The Endocrine Society went on to further define vitamin D insufficiency as a level between 21 and 29 ng/mL (2). 1. IOM (Carnegie of Medicine). 2010. Dietary reference ?? intakes for calcium and D. [place]aley [place]: The ?? National Academies Press. 2. Mary MF, Mildred NC, Daniel DAHL, et al. ?? Evaluation, treatment, and prevention of vitamin D ?? deficiency: an Endocrine Society clinical practice ?? guideline. JCEM. 2010; 96(6):1911-30. Blood BLOOD SPECIMEN / Unknown 01/05/2024 2:35 PM CDT 01/05/2024 Narrative Resulting Agency Comment Lab Testing performed at: [employer] [address] ??[facility] [phone] Mike Campbell MD LAB - CHEMISTRY MEGHANA MORELAND [facility] INSURANCE BILL [address] [place] [address] * ANGIOTENSIN CONVERTING ENZYME BLOOD (01/05/2024 2:35 PM CDT) Angiotensin-Con verting Enzyme 59 14 - 82 U/L [facility] INSURANCE BILL Blood BLOOD SPECIMEN / Unknown 01/05/2024 2:35 PM CDT 01/05/2024 Narrative Resulting Agency Comment Lab Testing performed at: [facility] [address] ??[facility] [phone] Mike Campbell MD LAB - CHEMISTRY MEGHANA MORELAND Performing Organization Address City/[facility]/ZIP Co de Phone Number [facility] INSURANCE BILL [address] [place] [address] * ERYTHROCYTE SEDIMENTATION RATE (01/05/2024 2:35 PM CDT) Erythrocyte Sedimentation Rate Westergren 24 0 - 40 mm/hr [facility] INSURANCE BILL Blood BLOOD SPECIMEN / Unknown 01/05/2024 2:35 PM CDT 01/05/2024 Narrative Resulting Agency Comment Lab Testing performed at: [employer] [address] ??[place] [phone] Mike Campbell MD LAB - HEMATOLOGY ORD ASHOK [facility] INSURANCE BILL [address] [place] [address] * CBC WITH DIFFERENTIAL (01/05/2024 2:35 PM CDT) WBC 5.7 3.4 - 10.8 x10E3/uL [facility] INSURANCE BILL RBC 4.43 3.77 - 5.28 x10E6/uL [facility] INSURANCE BILL Hemoglobin 12.1 11.1 - 15.9 g/dL [facility] INSURANCE BILL Hematocrit 38.0 34.0 - 46.6 % [facility] INSURANCE BILL MCV 86 79 - 97 fL [facility] INSURANCE BILL MCH 27.3 26.6 - 33.0 pg [facility] INSURANCE BILL MCHC 31.8 31.5 - 35.7 g/dL [facility] INSURANCE BILL RDW 14.8 11.7 - 15.4 % [facility] INSURANCE BILL Platelet Count 387 150 - 450 x10E3/uL [facility] INSURANCE BILL Granulocytes % 72 Not Estab. % [facility] INSURANCE BILL Lymphocytes % 19 Not Estab. % [facility] INSURANCE BILL Monocytes % 7 Not Estab. % [facility] INSURANCE BILL Eosinophils % 2 Not Estab. % [facility] INSURANCE BILL Basophils % 0 Not Estab. % [facility] INSURANCE BILL Immature Cells NOT AVAILABLE [facility] INSURANCE BILL Comment:Result cannot be obt ained for this observation. Granulocytes Absolute 4.1 1.4 - 7.0 x10E3/uL [facility] INSURANCE BILL Lymphocytes Absolute 1.1 0.7 - 3.1 x10E3/uL [facility] INSURANCE BILL Monocytes Absolute 0.4 0.1 - 0.9 x10E3/uL [facility] INSURANCE BILL Eosinophils Absolute 0.1 0.0 - 0.4 x10E3/uL [facility] INSURANCE BILL Basophils Absolute 0.0 0.0 - 0.2 x10E3/uL [facility] INSURANCE BILL Immature Granulocytes 0 Not Estab. % [facility] INSURANCE BILL Immature Granulocytes Absolute 0.0 0.0 - 0.1 x10E3/uL [facility] INSURANCE BILL nRBC NOT AVAILABLE [facility] INSURANCE BILL Comment:Result cannot be obt ained for this observation. Comment Hematology NOT AVAILABLE [facility] INSURANCE BILL Comment:Result cannot be obt ained for this observation. Blood BLOOD SPECIMEN / Unknown 01/05/2024 2:35 PM CDT 01/05/2024 Narrative Resulting Agency Comment Lab Testing performed at: [facility] [place] [address] ??[facility] [phone] Mike Campbell MD LAB - HEMATOLOGY TERELL PULIDO [facility] INSURANCE BILL [address] [place] [address] * (ABNORMAL) COMPREHENSIVE METABOLIC PANEL (01/05/2024 2:35 PM CDT) Glucose 111(H) 70 - 99 mg/dL [facility] INSURANCE BILL BUN 19 8 - 27 mg/dL [facility] INSURANCE BILL Creatinine 0.79 0.57 - 1.00 mg/dL [facility] INSURANCE BILL eGFR by CKD-EPI 75 >59 mL/min/1.7 3 [facility] INSURANCE BILL BUN/Creatinine Ratio 24 12 - 28 [facility] INSURANCE BILL Sodium 139 134 - 144 mmol/L [facility] INSURANCE BILL Potassium 4.5 3.5 - 5.2 mmol/L [facility] INSURANCE BILL Chloride 103 96 - 106 mmol/L [facility] INSURANCE BILL CO2 23 20 - 29 mmol/L [facility] INSURANCE BILL Calcium 9.1 8.7 - 10.3 mg/dL [facility] INSURANCE BILL Protein Total 7.1 6.0 - 8.5 g/dL [facility] INSURANCE BILL Albumin 3.7 3.7 - 4.7 g/dL [facility] INSURANCE BILL Globulin Total 3.4 1.5 - 4.5 g/dL [facility] INSURANCE BILL Albumin/Globulin Ratio 1.1(L) 1.2 - 2.2 [facility] INSURANCE BILL Bilirubin Total 0.2 0.0 - 1.2 mg/dL [facility] INSURANCE BILL Alkaline Phosphatase 145(H) 44 - 121 IU/L [facility] INSURANCE BILL AST 37 0 - 40 IU/L [facility] INSURANCE BILL ALT 37(H) 0 - 32 IU/L [facility] INSURANCE BILL Blood BLOOD SPECIMEN / Unknown 01/05/2024 2:35 PM CDT 01/05/2024 Narrative Resulting Agency Comment Lab Testing performed at: [facility] [place] [address] [address] ??[facility] [phone] Mike Campbell MD LAB - CHEMISTRY MEGHANA MORELAND Performing Organization Address City/[facility]/ZIP Co de Phone Number [facility] INSURANCE BILL [address] [place] [address] * (ABNORMAL) PROTEIN CREATININE RATIO URINE RANDOM PNL (01/05/2024 2:35 PM CDT) Creatinine Urine 147.2 Not Estab. mg/dL [facility] INSURANCE BILL Protein Urine 47.7 Not Estab. mg/dL [facility] INSURANCE BILL Protein/Creatin ine Ratio 324(H) 0 - 200 mg/g creat [facility] INSURANCE BILL Urine URINE SPECIMEN OBTAINED BY CLEAN CATCH PROCEDURE / Unknown 01/05/2024 2:35 PM CDT 01/05/2024 Narrative Resulting Agency Comment Lab Testing performed at: [facility] ??[facility] [phone] Mike Campbell MD LAB - URINE CHEMISTR Y ORDERABLES Performing Organization Address [facility] Co de Phone Number [facility] INSURANCE BILL [address] [place] [address] * CK BLOOD (01/05/2024 2:35 PM CDT) Pathologist [facility] CK 112 26 - 161 U/L [facility] INSURANCE BILL Blood BLOOD SPECIMEN / Unknown 01/05/2024 2:35 PM CDT 01/05/2024 Narrative Resulting Agency Comment Lab Testing performed at: [facility] [address] ??[facility] [phone] Mike Campbell MD LAB - CHEMISTRY MEGHANA MORELAND Performing Organization Address City/[facility]/ZIP Co de Phone Number [facility] INSURANCE BILL [address] [place] [address] * (ABNORMAL) COMPLEMENT C3 C4 PANEL (01/05/2024 2:35 PM CDT) Complement C3 95 82 - 167 mg/dL [facility] INSURANCE BILL Complement C4 10(L) 12 - 38 mg/dL [facility] INSURANCE BILL Blood BLOOD SPECIMEN / Unknown 01/05/2024 2:35 PM CDT 01/05/2024 Narrative Resulting Agency Comment Lab Testing performed at: [facility] [place] [address] [facility] ??[facility] [phone] Mike Campbell MD LAB - CHEMISTRY MEGHANA MORELAND Performing Organization Address City/[facility]/ZIP Co de Phone Number [facility] INSURANCE BILL [address] [place] [address] * PROTEIN ELECTROPHORESIS BLOOD (01/05/2024 2:35 PM CDT) Albumin 3.3 2.9 - 4.4 g/dL [facility] INSURANCE BILL Alpha-1 Globulin 0.3 0.0 - 0.4 g/dL [facility] INSURANCE BILL Ivkyd-4-Xrqmlgqr 0.7 0.4 - 1.0 g/dL [facility] INSURANCE BILL Beta-Globulin 1.1 0.7 - 1.3 g/dL [facility] INSURANCE BILL Gamma Globulin 1.6 0.4 - 1.8 g/dL [facility] INSURANCE BILL M-Aurelio Not Observed Not Observed g/dL [facility] INSURANCE BILL Globulin Total 3.8 2.2 - 3.9 g/dL [facility] INSURANCE BILL Albumin/Globulin Ratio 0.9 0.7 - 1.7 [facility] INSURANCE BILL Please Note [facility] INSURANCE BILL Comment: Protein electrophoresis scan will follow via computer, mail, or manager employee relations delivery. P E Interpretation, S [facility] INSURANCE BILL Comment: The SPE pattern appears unremarkable. Evidence of monoclonal protein is not apparent. Blood BLOOD SPECIMEN / Unknown 01/05/2024 2:35 PM CDT 01/05/2024 Narrative Resulting Agency Comment Lab Testing performed at: [facility] [place] [address] [facility] ??[facility] [phone] Mike Campbell MD LAB - CHEMISTRY MEGHANA MORELAND Performing Organization Address City/[facility]/ZIP Co de Phone Number [facility] INSURANCE BILL [address] [place] [address] * XR HAND BILAT 3VW OR MORE (12/23/2023 1:58 PM ORNAMENTAL METAL FABRICATOR APPRENTICE) Anatomical Region Laterality Modality Upper Extremity, Wrist / Hand Ra diographic Imaging 12/23/2023 2:10 PM ORNAMENTAL METAL FABRICATOR APPRENTICE Narrative 12/23/2023 2:11 PM ORNAMENTAL METAL FABRICATOR APPRENTICE PROCEDURE(s): XR HAND BILAT 3VW OR MORE DATE AND TIME OF EXAM(s): 12/23/2023 1:58 PM INDICATION(s): R76.8: Other specified abnormal immunological findings in serum R79.89: Other specified abnormal findings of blood chemistry M81.8: Other osteoporosis without current pathological fracture 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 FINDINGS/IMPRESSION: No acute fracture or dislocation is seen. Moderate osteoarthritic degenerative changes are seen at the bilateral second and third distal interphalangeal joints. Mild osteoarthritic degenerative changes are seen at the bilateral fifth distal interphalangeal joints. The remainder of the joint spaces appear grossly preserved. 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 FINDINGS/IMPRESSION: No acute fracture or dislocation is seen. Moderate osteoarthritic degenerative changes are seen at the bilateral second and third distal interphalangeal joints. Mild osteoarthritic degenerative changes areseen at the bilateral fifth distal interphalangeal joints. The remainder ofthe joint spaces appear grossly preserved. > Interpreting Provider: Susie Baeza MD on 12/23/2023 2:11 PM Mike Campbell MD DIAGNOSTIC IMAGING O RDERABLES Care Teams Medical Coding Specialist Relationship Specialty Start Date End Date Juvenal Tapia MD [address] [place] [address] PCP - General Family Medicine 12/23/23
--- OUTSIDE RECORDS SUMMARY | 2024-11-22 14:52 | XMS_ITS | Clinical Summary ---
Author Organization [facility] Address [address] [place] [address] Care Team Providers Care Cuff Stitcher Name Role Phone Juvenal Tapia MD Primary Care Provider Allergies Active Allergy Reactions Criticality Noted Date Comments Loperamide Hives Medium 04/29/2023 Nifedipine Prednisone Hives Reaction: Hives, , Medications levothyroxine (SYNTHROID) 75 mcg tablet Take 1 tablet (75 mcg total) by mouth containers sales representative before breakfast Active vit C/E/Zn/coppr/osvaldo tein/zeaxan (PRESERVISION [...] disease 08/25/2013 Overview (01/30/2017): History of osteoporosis Surgical History Surgery Date Site/Laterality Comments OTHER SURGICAL HISTORY x2 breech births OTHER SURGICAL HISTORY sinus surgery 1989 & 1994 OTHER SURGICAL HISTORY foot surgery 1989 OTHER SURGICAL HISTORY DNC x3 OTHER SURGICAL HISTORY Colonoscopy 01/2009 OTHER SURGICAL HISTORY Dex Scan 01/03 TOTAL ABDOMINAL HYSTERECTOMY W/ BILATERAL SALPINGOOPHORECTOMY MAMTA with BSO CATARACT EXTRACTION Bilateral Cataract extraction TOTAL ABDOMINAL HYSTERECTOMY Hysterectomy, total OTHER SURGICAL HISTORY right hip nailing COLONOSCOPY 7-8 yrs ago at [facility] COLONOSCOPY 07/09/2023 Medical History Medical History Date Comments Anemia Anemia; Comments : [facility] 01/02/2015 - Hx Other Medical osteoarthritis; Comments: [facility] 01/02/2015 - Osteoporosis Osteoporosis Hypothyroidism Family History Medical History Relation Name Comments Colon cancer Brother 1 Cancer, colon; Heart disease Brother 2 Heart disease; Heart disease Father Heart disease; Heart disease Mother Heart disease; Hypertension Mother Hypertension; Arthritis Other 1 Family history of arthritis; Cancer Other 2 Family history of cancer; Heart disease Other 3 Family history of heart problems; Other Other 4 Family history of high blood pressure; Relation Name Status Comments Brother 1 Brother 2 Father Mother Other 1 Other 2 Other 3 Other 4 Social History Tobacco Use Types Packs/Day Years [...] on file Legal Sex Female 7:54 PM PVC MONITOR Gender Identity Not on file Sexual Orientation Not on file Obstetrics History Para Term AB IAB SAB Ectopic Multiple Livin g Live Births 3 3 3 Date Outcome GA Total Labor Labor/2nd/3rd Weight Sex Type Anes PTL Shilpi A1 A5 Name Clin Term Term Term Last Filed Vital Signs Vital Sign Reading [...] Weight 39.5 kg (87 lb 1.6 oz) 10:55 AM CDT Height 165.1 cm (5' 5 ) 07/29/2024 10:5 5 AM CDT Body Mass Index 14.49 07/29/2024 10:55 AM CDT Plan of Treatment Health Maintenance Due Date Last Done Comments Depression Screening 1941 Fall Risk Assessment 1941 Hepatitis B Screening 1959 Well Visit 65+ 2006 Osteoporosis Screening-Bone Density Scan 09/05/2019 09/05/2017 Covid-19 Vaccine (2023-2 5 season) 2024 10/05/2021, 01/14/2021, 12/24/2020 Influenza Vaccine (#1) 2024 2, 08/08/2021, 07/11/2020, Additional history exists DTaP/Tdap/Td Vaccine (2 - Td or Tdap) 05/17/2031 05/17/2021 Pneumococcal vaccine 65+ Completed 07/11/2020, 07/27 Zoster Vaccine Completed 10/26/2020, 08/21/2020 Procedures Procedure Name Priority Date/Time Associated Diagnosis Comments DEXA AXIAL SKELETON BONE DENSITY 1 OR MORE SITES Routine 09/05/2017 4:59 PM PVC MONITOR from Last 3 Months or Most Recently Relevant to Health Maintenance Results * Dexa Axial Skeleton Bone Density 1 or 2 Site (09/05/2017 4:59 PM PVC MONITOR) Anatomical Region Laterality Modality N/A Nuclear Medicine 09/05/2017 4:59 PM PVC MONITOR Narrative 09/05/2017 5:40 PM PVC MONITOR DEXA Bone Density Axial ??Acc#: ??[id number] DATE OF EXAM: ??Sep 05 2017 ?? [...] ??ALLISON JACKSON Requesting Fax: ??-- Attending Fax: ??[phone] Attending ID: ??[id number] Requesting ID: ??[id number] Report To 1 ID: ??[id number] Report To 1 Name: ??FREEMAN SANCHEZ Report To 1 FAX: ??[phone] NextGen Order #: ?? Procedure Note Miscellaneous, Not In File - 09/13/2017 DEXA Bone Density Axial Acc#: [id number] DATE OF EXAM: Sep 05 2017 EXAM: [...] on: Sep 05 2017 11:40A Transcribed by: [facility] On: Sep 05 2017 11:38A Approved Electronically by: BHAVYA Aguilar, DR BORGES on: Sep 05 2017 11:38A Ordering DR: ALLISON JACKSON Attending DR: FREEMAN SANCHEZ Attending: FREEMAN SANCHEZ Requesting: ALLISON JACKSON Requesting Fax: -- Attending Attending ID: [id number] Requesting ID: [id number] Report To 1 ID: [id number] Report To 1 Name: FREEMAN SANCHEZ Report To 1 FAX: [phone] NextGen Order #: us Physician No IMG DXA PROCEDURES Edited Result - Final from Last 3 Months or Most Recently Relevant to Health Maintenance Insurance MEDICARE [facility] [employer] [place] Advance Directives For more information, please contact: [phone] * Full Code (Latest Code Status on [...] internal / external pacemakerNo cardioversion Care Teams Cuff Stitcher Relationship Specialty Start Date End Date Juvenal Tapia MD PCP - General Family Practice 10/10/22
--- OUTSIDE RECORDS SUMMARY | 2024-11-22 14:52 | XMS_ITS | Clinical Summary ---
Author Organization [facility] Address [address] [place] [address] Care Team Providers Care Speck Dyer Name Role Phone Juvenal Tapia MD Primary Care Provider Source Comments [facility],non-owned Affiliates and Associated Physician Practices is amultiple site organization consisting of ambulatory clinics and hospital sitesin [place], [place], [place] and [place]. This disclosure is being madepursuant to the Care Everywhere program and may not contain all information available regarding this patient. Last updated 18.[facility] Allergies Active Allergy Reactions Criticality Noted Date [...] Active vitamin D, ergocalciferol, (Drisdol) 1.25 MG (34610 UT) capsule Take 1 (one) capsule by [...] Other osteoporosis without current pathological fracture 03/03/2013 Family History Medical History Relation Name Comments Heart Disease Brother 1 Status: Alive Cancer - Colon Brother 2 Status: Dece sed Heart Disease Father Status: [facility] ed Heart Disease Mother Status: [facility] ed Heart Disease Sister Status: Alive Allergy (Severe) Neg Hx Blindness Neg Hx CVA Neg Hx Cancer Neg Hx Cancer - Breast Neg Hx Cancer - Skin, Melanoma Neg Hx Cancer - Skin, Non Melanoma Neg Hx Cataract Neg Hx Eczema Neg Hx Glaucoma Neg Hx Hemophilia Neg Hx Macular Degeneration Neg Hx Psoriasis Neg Hx Rashes/Skin Problems Neg Hx Relation Name Status Comments Brother 1 Brother 2 Father Mother Sister Social History Tobacco Use Types Packs/Day Years [...] Description 02/24/2025 11:15 AM CDT Office Visit [facility] - Rheumatology [address] [facility] [place] [address] [place] [address] [facility] [address] [place] [address] Health Maintenance Due Date Last Done Comments MEDICARE AWV ? 12 MONTHS 1940 DTAP/TDAP/TD VACCINES (1 - Tdap) 1960 PNEUMOCOCCAL VACCINE 50+ (1 of 1 - PCV) 1991 ZOSTER VACCINE (1 of 2) 1991 Respiratory Syncytial Virus (RSV) Vaccine Pt: or over 60 yrs (1 - 1-dose 75+ series) 2016 COVID-19 VACCINE (2 - 2023-2 5 season) 2024 10/05/2021 INFLUENZA VACCINE (#1) 2024 DEPRESSION SCREENING 10/27/2024 04/27/2024 BONE DENSITY TESTING Completed 09/05/2017 HEPATITIS B VACCINE Aged Out No longe r eligible based on patient's age to complete this topic HIB VACCINE Aged Out No longer eligi ble based on patient's age to complete this topic HPV VACCINE Aged Out No longer eligi ble based on patient's age to complete this topic MENINGOCOCCAL (Group B) VACCINE Aged Out No longer eligible based on patient's age to complete this topic MENINGOCOCCAL VACCINE Aged Out No rachel marc eligible based on patient's age to complete this topic Care Teams Speck Dyer Relationship Specialty Start Date End Date Juvenal Tapia MD [address] [place] [address] PCP - General Family Medicine 12/23/23
[2024-11-22 16:38] LABS: Parathyroid Intact 55.4 pg/mL (14.5-75.2)
[2024-11-22 17:14] LABS: Albumin Level 3.8 g/dL (3.5-5.1); Anion Gap 11 mmol/L (4-12); Blood Urea Nitrogen 16 mg/dL (7-17); Calcium 8.5 mg/dL (8.4-10.2); Carbon Dioxide 24 mmol/L (22-30); Chloride 105 mmol/L (98-107); Estimated Glomerular Filt Rate > 60; Glucose 104 mg/dL (65-110); Phosphorus 4.4 mg/dL (2.5-4.5); Potassium 4.7 mmol/L (3.4-5.0); Sodium 140 mmol/L (137-145)
== END 2024-11-22 14:07 | disposition home or self-care (01) ==
LOC: ANHGOSHLAB 14:07
PROVIDERS: PCP Family Medicine; Visit Provider Internal Medicine Endocrinology, Diabetes & Metabolism
DX: M81.0 Age-related osteoporosis without current pathological fracture (principal); R79.89 Other specified abnormal findings of blood chemistry; E55.9 Vitamin D deficiency, unspecified; E03.9 Hypothyroidism, unspecified
CPT/HCPCS: 36415; 80069; 82306; 83970; 84443

== ENCOUNTER 2024-11-24 11:51 | Outpatient (NON) | payer MEDICARE, OTHER, SELFPAY ==
--- OUTSIDE RECORDS SUMMARY | 2024-11-24 13:02 | XMS_ITS | Referral Summary ---
Author Organization [facility] Address [address] [place] [address] Care Team Providers Care Audiology Technician Name Role Phone Juvenal Tapia MD Primary Care Provider Source Comments [facility],non-owned Affiliates and Associated Physician Practices is amultiple site organization consisting of ambulatory clinics and hospital sitesin [place], [place], [place] and [place]. This disclosure is being madepursuant to the Care Everywhere program and may not contain all information available regarding this patient. Last updated 18.[facility] Allergies Active Allergy Reactions Criticality Noted Date [...] Active vitamin D, ergocalciferol, (Drisdol) 1.25 MG (27074 UT) capsule Take 1 (one) capsule by [...] Description 02/24/2025 11:15 AM CDT Office Visit [facility] - Rheumatology [address] [facility] [address] [place] [address] [place] [address] [facility] [address] [place] [address] Care Teams Audiology Technician Relationship Specialty Start Date End Date Juvenal Tapia MD [address] [place] [address] PCP - General Family Medicine 12/23/23
--- OUTSIDE RECORDS SUMMARY | 2024-11-24 13:02 | XMS_ITS | Clinical Summary ---
Author Organization [facility] Care Team Providers Care Commercial Real Estate Underwriter Name Role Phone Unavailable Primary Care Provider [...]
--- OUTSIDE RECORDS SUMMARY | 2024-11-24 13:02 | XMS_ITS | Clinical Summary ---
Author Organization [facility] Address [address] [place] [address] Care Team Providers Care Balloon Design Printer Name Role Phone Juvenal Tapia MD Primary Care Provider Source Comments [facility]non-owned Affiliates and Associated Physician Practices is amultiple site organization consisting of ambulatory clinics and hospital sitesin [place], [place], [place] and [place]. This disclosure is being madepursuant to the Care Everywhere program and may not contain all information available regarding this patient. Last updated 18.[facility] Allergies Active Allergy Reactions Criticality Noted Date [...] Active vitamin D, ergocalciferol, (Drisdol) 1.25 MG (51642 UT) capsule Take 1 (one) capsule by [...] Status: Dece sed Heart Disease Father Status: [facility] ed Heart Disease Mother Status: [facility] ed Heart Disease Sister Status: Alive [...] Description 02/24/2025 11:15 AM CDT Office Visit [facility] - Rheumatology [address] [facility] [address] [place] [address] [place] [address] [address] [facility] [address] [place] [address] Health Maintenance Due Date Last [...] age to complete this topic Care Teams Balloon Design Printer Relationship Specialty Start Date End Date Juvenal Tapia MD [address] [place] [address] PCP - General Family Medicine 12/23/23
--- OUTSIDE RECORDS SUMMARY | 2024-11-24 13:02 | XMS_ITS | Referral Summary ---
Author Organization [facility] Address [address] [place] [address] Care Team Providers Care Concrete Bucket Hooker Name Role Phone Juvenal Tapia MD Primary Care Provider Allergies Active Allergy Reactions Criticality Noted Date Comments Loperamide Hives Medium 04/29/2023 Nifedipine Prednisone Hives Reaction: Hives, , Medications levothyroxine (SYNTHROID) 75 mcg tablet Take 1 tablet (75 mcg total) by mouth early breastfeeding care specialist before breakfast Active vit C/E/Zn/coppr/osvaldo tein/zeaxan (PRESERVISION [...] on file Legal Sex Female 7:54 PM FULFILLMENT SPECIALIST Gender Identity Not on file Sexual Orientation [...] OR MORE SITES Routine 09/05/2017 4:59 PM FULFILLMENT SPECIALIST from Last 3 Months or Most Recently Relevant to Health Maintenance Results * Dexa Axial Skeleton Bone Density 1 or 2 Site (09/05/2017 4:59 PM FULFILLMENT SPECIALIST) Anatomical Region Laterality Modality N/A Nuclear Medicine 09/05/2017 4:59 PM FULFILLMENT SPECIALIST Narrative 09/05/2017 5:40 PM FULFILLMENT SPECIALIST DEXA Bone Density Axial ??Acc#: ??[id number] DATE OF EXAM: ??Sep 05 2017 ?? [...] ??ALLISON JACKSON Requesting Fax: ??-- Attending Fax: ??[phone] Attending ID: ??[id number] Requesting ID: ??[id number] Report To 1 ID: ??[id number] Report To 1 Name: ??FREEMAN SANCHEZ Report To 1 FAX: ??[phone] NextGen Order #: ?? Procedure Note Miscellaneous, Not In File - 09/13/2017 DEXA Bone Density Axial Acc#: [id number] DATE OF EXAM: Sep 05 2017 EXAM: [...] JACKSON Requesting Fax: -- Attending Attending ID: [id number] Requesting ID: [id number] Report To 1 ID: [id number] Report To 1 Name: FREEMAN SANCHEZ Report To 1 FAX: [phone] NextGen Order #: us Physician No IMG DXA PROCEDURES Edited Result - Final from Last 3 Months or Most Recently Relevant to Health Maintenance Insurance MEDICARE [facility] [id number] MEDICARE [employer] [place] Advance Directives For more information, please contact: [phone] * Full Code (Latest Code Status on [...] internal / external pacemakerNo cardioversion Care Teams Concrete Bucket Hooker Relationship Specialty Start Date End Date Juvenal Tapia MD PCP - General Family Practice 10/10/22
--- OUTSIDE RECORDS SUMMARY | 2024-11-24 13:02 | XMS_ITS | Patient Health Summary ---
Author Organization [facility] Address [address] [place] [address] Care Team Providers Care Director Hydrogen Storage Engineering Name Role Phone Juvenal Tapia MD Primary Care Provider Note from [facility],non-owned Affiliates and Associated Physician Practices is amultiple site organization consisting of ambulatory clinics and hospital sitesin [place], [place], [place] and [place]. This disclosure is being madepursuant to the Care Everywhere program and may not contain all information available regarding this patient. Last updated 18.[facility] Allergies * Acetaminophen(Other) * Nifedipine(Rash,Other) [...] * vitamin D, ergocalciferol, (Drisdol) 1.25 MG (95692 UT) capsule(Started 02/15/2024) Take 1 (one) capsule [...] 14.54 04/27/2024 3:00 PM CDT Procedures * CABINET FINISHER ANTIBODY(Performed 01/05/2024) Performed for Elevated antinuclear antibody [...] osteoarthritis type, Vitamin D deficiency Results * CABINET FINISHER ANTIBODY (01/05/2024 2:36 PM CDT) CABINET FINISHER Antibody 0.6 0.0 - 0.9 AI [facility] INSURANCE BILL Blood BLOOD SPECIMEN / Unknown 01/05/2024 2:36 PM CDT 01/05/2024 Narrative Resulting Agency Comment [facility]: [facility] [address] ??[facility] [phone] Mike Campbell MD LAB - CHEMISTRY ORDE RABLES Performing Organization Address [facility] Co de Phone Number [facility] INSURANCE BILL [address] [place] [address] * CENTROMERE B ANTIBODIES (01/05/2024 2:35 PM CDT) Centromere B Antibody <0.2 0.0 - 0.9 AI [employer] BILL Blood BLOOD SPECIMEN / Unknown 01/05/2024 2:35 PM CDT 01/05/2024 Narrative Resulting Agency Comment Lab Testing performed at: [facility] [address] [place] [address] Road ??[facility] [phone] Mike Campbell MD LAB - SEROLOGY ORDER YAZMIN Performing Organization Address [facility] Co de Phone Number [facility] INSURANCE BILL [address] [place] [address] * CYCLIC CITRUL PEPTIDE ANTIBODY IGG/IGA (CCP) (01/05/2024 2:35 PM CDT) CCP Antibodies IgG/IgA 14 0 - 19 units [facility] INSURANCE BILL Comment: ? Negative ? <20 ? Weak positive ?20 - 39 ? Moderate positive ??40 - 59 ? Strong positive ?>59 Blood BLOOD SPECIMEN / Unknown 01/05/2024 2:35 PM CDT 01/05/2024 Narrative Resulting Agency Comment Lab Testing performed at: [facility] ??[facility] [phone] Mike Campbell MD LAB - SEROLOGY ORDER YAZMIN [facility] INSURANCE BILL [address] [place] [address] * (ABNORMAL) ISRAEL STAINING PATTERNS REFLEXED (01/05/2024 [...] ? Myositis Overlap Syndrome, Systemic Lupus ? Exxavfgqenqew-Zhfftsobdeg-Qrlsuqutez ? Myositis Overlap Syndrome, Systemic ? Autoimmune [...] Agency Comment Lab Testing performed at: [facility] [place] [address] ??[facility] [phone] Mike Campbell MD LAB - PATHOLOGY/CYTO LOGY ORDERABLES [facility] INSURANCE BILL [address] [place] [address] * URIC ACID BLOOD (01/05/2024 2:35 PM CDT) Uric Acid 6.2 3.1 - 7.9 mg/dL [facility] INSURANCE BILL Comment:Therapeutic target f or gout patients: <6.0 Blood BLOOD SPECIMEN / Unknown 01/05/2024 2:35 PM CDT 01/05/2024 Narrative Resulting Agency Comment Lab Testing performed at: [facility] [place] [address] ??[facility] [phone] Mike Campbell MD LAB - CHEMISTRY ORDE RABLES Performing Organization Address [facility]/ZIP Co de Phone Number [facility] INSURANCE BILL [address] [place] [address] * ANCA VASCULITIS PANEL (01/05/2024 2:35 PM [...] up testing of positive sera with both NE-3 and MPO-ANCA enzyme immunoassays. As many as [...] Resulting Agency Comment Lab Testing performed at: [facility] ??[facility] [phone] Mike Campbell MD LAB - CHEMISTRY MEGHANA MORELAND [facility] INSURANCE BILL [address] [place] [address] * BARRAZA (SM) ANTIBODY BHASKAR (01/05/2024 2:35 PM CDT) Barraza (BHASKAR) Antibody <0.2 0.0 - 0.9 AI [facility] INSURANCE BILL Blood BLOOD SPECIMEN / Unknown 01/05/2024 2:35 PM CDT 01/05/2024 Narrative Resulting Agency Comment Lab Testing performed at: [facility] [address] ??[facility] [phone] Mike Campbell MD LAB - CHEMISTRY MEGHANA MORELAND [facility] INSURANCE BILL [address] [place] [address] * RHEUMATOID FACTOR BLOOD QUANTITATIVE (01/05/2024 2:35 PM CDT) Rheumatoid Factor <10.0 <14.0 IU/mL [facility] INSURANCE BILL Blood BLOOD SPECIMEN / Unknown 01/05/2024 2:35 PM CDT 01/05/2024 Narrative Resulting Agency Comment Lab Testing performed at: [facility] [place] [address] ??[facility] [phone] Mike Campbell MD LAB - CHEMISTRY MEGHANA MORELAND [facility] INSURANCE BILL [address] [place] [address] * C-REACTIVE PROTEIN (01/05/2024 2:35 PM CDT) Pathologist [facility] C-Reactive Protein 3 0 - 10 mg/L [facility] INSURANCE BILL Blood BLOOD SPECIMEN / Unknown 01/05/2024 2:35 PM CDT 01/05/2024 Narrative Resulting Agency Comment Lab Testing performed at: [facility] [address] ??[place] [phone] Mike Campbell MD LAB - CHEMISTRY MEGHANA MORELAND Performing Organization Address [facility]/ZIP Co de Phone Number [facility] INSURANCE BILL [address] [place] [address] * (ABNORMAL) TANIA BLOOD SCREEN W/REFLEX TITER (01/05/2024 2:35 PM CDT) Pathologist [facility] TANIA Positive(A ) [facility] Comment: ?Negative ?? <1:80 ?Borderline ??1:80 ?Positive ?? >1:80 Blood BLOOD SPECIMEN / Unknown 01/05/2024 2:35 PM CDT 01/05/2024 Narrative Resulting Agency Comment Lab Testing performed at: [facility] [address] ??[place] [phone] Mike Campbell MD LAB - CHEMISTRY MEGHANA MORELAND Performing Organization Address City/[facility]/ZIP Co de Phone Number [facility] INSURANCE BILL [address] [place] [address] * SS-B (SJOGREN'S) ANTIBODY (01/05/2024 2:35 PM CDT) Sjogren's Antibodies (SSB) <0.2 0.0 - 0.9 AI [facility] INSURANCE BILL Blood BLOOD SPECIMEN / Unknown 01/05/2024 2:35 PM CDT 01/05/2024 Narrative Resulting Agency Comment Lab Testing performed at: [facility] [address] ??[facility] [phone] Mike Campbell MD LAB - CHEMISTRY MEGHANA MORELAND [facility] INSURANCE BILL [address] [place] [address] * SS-A (SJOGREN'S) ANTIBODY (01/05/2024 2:35 PM CDT) Sjogren's Antibodies (SSA) <0.2 0.0 - 0.9 AI [facility] INSURANCE BILL Blood BLOOD SPECIMEN / Unknown 01/05/2024 2:35 PM CDT 01/05/2024 Narrative Resulting Agency Comment Lab Testing performed at: [facility] [place] [address] ??[facility] [phone] Mike Campbell MD LAB - CHEMISTRY MEGHANA MORELAND [facility] INSURANCE BILL [address] [place] [address] * (ABNORMAL) SCLERODERMA 70 (SCL) ANTIBODY (01/05/2024 2:35 PM CDT) Antiscleroderm a-70 Antibody 2.0(H) 0.0 - 0.9 AI [facility] INSURANCE BILL Blood BLOOD SPECIMEN / Unknown 01/05/2024 2:35 PM CDT 01/05/2024 Narrative Resulting Agency Comment Lab Testing performed at: [facility] [place] [address] ??[facility] [phone] Mike Campbell MD LAB - CHEMISTRY MEGHANA MORELAND [facility] INSURANCE BILL [address] [place] [address] * DNA ANTIBODY DOUBLE STRANDED (01/05/2024 2:35 PM CDT) Pathologist [facility] Anti-dsDNA Quantitative <1 0 - 9 IU/mL [facility] Comment: ?Negative ?<5 ?Equivocal ??5 - 9 ?Positive ?>9 Blood BLOOD SPECIMEN / Unknown 01/05/2024 2:35 PM CDT 01/05/2024 Narrative Resulting Agency Comment Lab Testing performed at: [facility] [address] [facility] ??[facility] [phone] Mike Campbell MD LAB - HEMATOLOGY ORD ERABLES [facility] INSURANCE BILL [address] [place] [address] * (ABNORMAL) VITAMIN D 25-HYDROXY (01/05/2024 2:35 PM CDT) [facility] Vitamin D, 25 Hydroxy 16.5(L) 30.0 - 100.0 ng/mL [facility] Comment: Vitamin D deficiency has been defined by the [place] of Medicine and an Endocrine Society practice guideline as a level of serum 25-OH vitamin D less than 20 ng/mL (1,2). The Endocrine Society went on to further define vitamin D insufficiency as a level between 21 and 29 ng/mL (2). 1. IOM ([place] of Medicine). 2010. Dietary reference ?? intakes for calcium and D. [place]aley [place]: The ?? National Academies Press. 2. Mary MF, Mildred NC, Daniel DAHL, et al. ?? Evaluation, treatment, and prevention of vitamin D ?? deficiency: an Endocrine Society clinical practice ?? guideline. JCEM. 2010; 96(5):1911-30. Blood BLOOD SPECIMEN / Unknown 01/05/2024 2:35 PM CDT 01/05/2024 Narrative Resulting Agency Comment Lab Testing performed at: [employer] [address] ??[facility] [phone] Mike Campbell MD LAB - CHEMISTRY MEGHANA MORELAND [facility] INSURANCE BILL [address] [place] [address] * ANGIOTENSIN CONVERTING ENZYME BLOOD (01/05/2024 2:35 PM CDT) Angiotensin-Con verting Enzyme 59 14 - 82 U/L [facility] INSURANCE BILL Blood BLOOD SPECIMEN / Unknown 01/05/2024 2:35 PM CDT 01/05/2024 Narrative Resulting Agency Comment Lab Testing performed at: [facility] [address] ??[facility] [phone] Mike Campbell MD LAB - CHEMISTRY MEGHANA MORELAND Performing Organization Address City/[facility]/ZIP Co de Phone Number [facility] INSURANCE BILL [address] [place] [address] * ERYTHROCYTE SEDIMENTATION RATE (01/05/2024 2:35 PM CDT) Erythrocyte Sedimentation Rate Westergren 24 0 - 40 mm/hr [facility] INSURANCE BILL Blood BLOOD SPECIMEN / Unknown 01/05/2024 2:35 PM CDT 01/05/2024 Narrative Resulting Agency Comment Lab Testing performed at: [employer] [address] ??[place] [phone] Mike Campbell MD LAB - HEMATOLOGY ORD ASHOK [facility] INSURANCE BILL [address] [place] [address] * CBC WITH DIFFERENTIAL (01/05/2024 2:35 PM [...] Agency Comment Lab Testing performed at: [facility] [place] [address] ??[facility] [phone] Mike Campbell MD LAB - HEMATOLOGY TERELL PULIDO [facility] INSURANCE BILL [address] [place] [address] * (ABNORMAL) COMPREHENSIVE METABOLIC PANEL (01/05/2024 2:35 [...] Agency Comment Lab Testing performed at: [facility] [place] [address] ??[facility] [phone] Mike Campbell MD LAB - CHEMISTRY MEGHANA MORELAND Performing Organization Address City/[facility]/ZIP Co de Phone Number [facility] INSURANCE BILL [address] [place] [address] * (ABNORMAL) PROTEIN CREATININE RATIO URINE RANDOM [...] Resulting Agency Comment Lab Testing performed at: [facility] ??[facility] [phone] Mike Campbell MD LAB - URINE CHEMISTR Y ORDERABLES Performing Organization Address [facility] Co de Phone Number [facility] INSURANCE BILL [address] [place] [address] * CK BLOOD (01/05/2024 2:35 PM CDT) Pathologist [facility] CK 112 26 - 161 U/L [facility] INSURANCE BILL Blood BLOOD SPECIMEN / Unknown 01/05/2024 2:35 PM CDT 01/05/2024 Narrative Resulting Agency Comment Lab Testing performed at: [facility] [place] ??[facility] [phone] Mike Campbell MD LAB - CHEMISTRY MEGHANA MORELAND Performing Organization Address City/[facility]/ZIP Co de Phone Number [facility] INSURANCE BILL [address] [place] [address] * (ABNORMAL) COMPLEMENT C3 C4 PANEL (01/05/2024 2:35 PM CDT) Complement C3 95 82 - 167 mg/dL [facility] INSURANCE BILL Complement C4 10(L) 12 - 38 mg/dL [facility] INSURANCE BILL Blood BLOOD SPECIMEN / Unknown 01/05/2024 2:35 PM CDT 01/05/2024 Narrative Resulting Agency Comment Lab Testing performed at: [facility] [place] [address] [facility] ??[facility] [phone] Mike Campbell MD LAB - CHEMISTRY MEGHANA MORELAND Performing Organization Address City/[facility]/ZIP Co de Phone Number [facility] INSURANCE BILL [address] [place] [address] * PROTEIN ELECTROPHORESIS BLOOD (01/05/2024 2:35 PM CDT) Albumin 3.3 2.9 - 4.4 g/dL [facility] INSURANCE BILL Alpha-1 Globulin 0.3 0.0 - 0.4 g/dL [facility] INSURANCE BILL Rhlfw-3-Wvsdzynx 0.7 0.4 - 1.0 g/dL [facility] INSURANCE [...] scan will follow via computer, mail, or deputy manager delivery. P E Interpretation, S [facility] INSURANCE BILL Comment: The SPE pattern appears unremarkable. Evidence of monoclonal protein is not apparent. Blood BLOOD SPECIMEN / Unknown 01/05/2024 2:35 PM CDT 01/05/2024 Narrative Resulting Agency Comment Lab Testing performed at: [facility] [place] [address] [facility] ??[facility] [phone] Mike Campbell MD LAB - CHEMISTRY MEGHANA MORELAND Performing Organization Address City/[facility]/ZIP Co de Phone Number [facility] INSURANCE BILL [address] [place] [address] * XR HAND BILAT 3VW OR MORE (12/23/2023 1:58 PM NON CLINICAL ADVISOR) Anatomical Region Laterality Modality Upper Extremity, Wrist / Hand Ra diographic Imaging 12/23/2023 2:10 PM NON CLINICAL ADVISOR Narrative 12/23/2023 2:11 PM NON CLINICAL ADVISOR PROCEDURE(s): XR HAND BILAT 3VW OR MORE [...] MD DIAGNOSTIC IMAGING O RDERABLES Care Teams Director Hydrogen Storage Engineering Relationship Specialty Start Date End Date Juvenal Tapia MD [address] [place] [address] PCP - General Family Medicine 12/23/23
--- OUTSIDE RECORDS SUMMARY | 2024-11-24 13:02 | XMS_ITS | Clinical Summary ---
Author Organization [facility] Address [address] [place] [address] Care Team Providers Care Glaze Sprayer Name Role Phone Juvenal Tapia MD Primary Care Provider Allergies Active Allergy Reactions Criticality Noted Date Comments Loperamide Hives Medium 04/29/2023 Nifedipine Prednisone Hives Reaction: Hives, , Medications levothyroxine (SYNTHROID) 75 mcg tablet Take 1 tablet (75 mcg total) by mouth registered appraiser before breakfast Active vit C/E/Zn/coppr/osvaldo tein/zeaxan (PRESERVISION [...] hip nailing COLONOSCOPY 7-8 yrs ago at [facility] COLONOSCOPY 07/09/2023 Medical History Medical History Date Comments Anemia Anemia; Comments : [facility] 01/02/2015 - Hx Other Medical osteoarthritis; Comments: [facility] 01/02/2015 - Osteoporosis Osteoporosis Hypothyroidism [...] on file Legal Sex Female 7:54 PM CLUTCH SPECIALIST Gender Identity Not on file Sexual [...] OR MORE SITES Routine 09/05/2017 4:59 PM CLUTCH SPECIALIST from Last 3 Months or Most Recently Relevant to Health Maintenance Results * Dexa Axial Skeleton Bone Density 1 or 2 Site (09/05/2017 4:59 PM CLUTCH SPECIALIST) Anatomical Region Laterality Modality N/A Nuclear Medicine 09/05/2017 4:59 PM CLUTCH SPECIALIST Narrative 09/05/2017 5:40 PM CLUTCH SPECIALIST DEXA Bone Density Axial ??Acc#: ??[id number] DATE OF EXAM: ??Sep 05 2017 ?? [...] ??ALLISON JACKSON Requesting Fax: ??-- Attending Fax: ??[phone] Attending ID: ??[id number] Requesting ID: ??[id number] Report To 1 ID: ??[id number] Report To 1 Name: ??FREEMAN SANCHEZ Report To 1 FAX: ??[phone] NextGen Order #: ?? Procedure Note Miscellaneous, Not In File - 09/13/2017 DEXA Bone Density Axial Acc#: [id number] DATE OF EXAM: Sep 05 2017 EXAM: [...] on: Sep 05 2017 11:40A Transcribed by: [facility] On: Sep 05 2017 11:38A Approved Electronically by: BHAVYA Aguilar, DR BORGES on: Sep 05 2017 11:38A Ordering DR: ALLISON JACKSON Attending DR: FREEMAN SANCHEZ Attending: FREEMAN SANCHEZ Requesting: ALLISON JACKSON Requesting Fax: -- Attending Attending ID: [id number] Requesting ID: [id number] Report To 1 ID: [id number] Report To 1 Name: FREEMAN SANCHEZ Report To 1 FAX: [phone] NextGen Order #: us Physician No IMG DXA PROCEDURES Edited Result - Final from Last 3 Months or Most Recently Relevant to Health Maintenance Insurance MEDICARE [facility] [employer] Advance Directives For more information, please contact: [phone] * Full Code (Latest Code Status on [...] internal / external pacemakerNo cardioversion Care Teams Glaze Sprayer Relationship Specialty Start Date End Date Juvenal Tapia MD PCP - General Family Practice 10/10/22
--- OUTSIDE RECORDS SUMMARY | 2024-11-24 13:02 | XMS_ITS | Continuity of Care Document ---
Author Organization [facility] Address [address] [place] [address] [place] [address] Phone Care Team Providers Care Inside Sales Supervisor Name Role Phone Nils Charles MD Unavailable Unavailable Allergies, Adverse Reactions, Alerts Substance Reaction Status Criticality nifedipine Active No Information prednisone Active No Information Medications Medication Instructions Dosage Effective Dates (start - stop) Status Comments Tirosint 75 mcg capsule take 1 capsule by oral route every day 75 MCG - Active Refresh Tears 0.5 % eye drops - Active Caltrate 600 + D 600 mg (1,500 mg)-800 unit chewable tablet - Active AREDS 2 ORAL CAPSULE - Active Vitamin D3 2,000 unit tablet - Active iron 325 mg (65 mg iron) tablet take 1 tablet by oral route every day 325 MG - Active Procedures Procedure Date Post-op Follow-up Visit No Charge Refraction No Charge [facility] Fundus Photos 018 After Cataract Laser Surgery Eye Exam, New Patient Advance Directives Directive Yes / No Effective Date File Name No Information Encounters Encounter Description Practice Location Reason(s) For Visit Diagnoses Date Provider Providers Copied on Encounter [facility], [address] [place] [address] [address], [place], [place], [id number], [place] tel:[phone] NICOLE FAGAN Professional 2-4 wk YAG PC PO (chief complaint) Encounter for examination following surgery 8 Melvin Wray. [address] [facility], [address], [place], [place], [address], [place]. tel:[phone] [facility], [address], [place], [place], [address], [place] tel:[phone] NICOLE Ramos RYLAN Professional YAG-PC Eval (chief complaint) Bilateral artificial lens implantOther secondary cataract, right eyeOther secondary cataract, left eye 8 Carlos Nino. [address], [address], [place], [place], [address], [place]. tel:[phone] Family History Family Member Type Diagnosis Age At Onset Problem (finding) Family history of glauc ron Brother Problem (finding) degenerative disorder o f macula Payers Payer name Insurance type Covered constitution party ID Authoriza tion(s) No Information Social History [...]
[2024-11-24 19:51] LABS: Creatinine Urine 40.8 mg/dL
[2024-11-24 20:12] LABS: Creatinine 24 Hour Urine 0.4 gm/24 (0.8-1.8); Total Volume 24 Hour Urine 1200 ml
== END 2024-11-24 11:52 | disposition home or self-care (01) ==
LOC: ANHGOSHLAB 11:53
PROVIDERS: PCP Family Medicine; Visit Provider Internal Medicine Endocrinology, Diabetes & Metabolism
DX: E03.9 Hypothyroidism, unspecified (principal); E55.9 Vitamin D deficiency, unspecified; M81.0 Age-related osteoporosis without current pathological fracture
CPT/HCPCS: 81050; 82340; 82570

== ENCOUNTER 2024-12-22 10:05 | Outpatient (CLI) | payer MEDICARE, OTHER, SELFPAY ==
--- OUTSIDE RECORDS SUMMARY | 2024-12-22 11:33 | XMS_ITS | Clinical Summary ---
Author Organization [facility] Address [address] [facility] [place] [address] Care Team Providers Care Survey Worker Name Role Phone Juvenal Tapia MD Primary Care Provider Source Comments [facility],non-owned Affiliates and Associated Physician Practices is amultiple site organization consisting of ambulatory clinics and hospital sitesin [place], [place], [place] and [place]. This disclosure is being madepursuant to the Care Everywhere program and may not contain all information available regarding this patient. Last updated 18.[facility] Allergies Active Allergy Reactions Criticality Noted Date [...] Active vitamin D, ergocalciferol, (Drisdol) 1.25 MG (04709 UT) capsule Take 1 (one) capsule by [...] Status: Dece sed Heart Disease Father Status: [facility] ed Heart Disease Mother Status: [facility] ed Heart Disease Sister Status: Alive Allergy [...] 85 04/27/2024 3:00 PM CDT Temperature 36.6 C (97.8 F) 03/31/2013 12:59 PM CDT Respiratory Rate 16 04/27/2024 3:00 PM CDT [...] 02/24/2025 11:15 AM CDT Office Visit [facility] - Rheumatology [address] [facility] [address] [place] [address] [place] [address] [facility] [facility] [address] [place] [address] Health Maintenance Due Date Last Done Comments MEDICARE AWV 12 MONTHS 1940 DTAP/TDAP/TD VACCINES (1 - [...] age to complete this topic Care Teams Survey Worker Relationship Specialty Start Date End Date Juvenal Tapia MD [address] [place] [id number] PCP - General Family Medicine 12/23/23
--- OUTSIDE RECORDS SUMMARY | 2024-12-22 11:33 | XMS_ITS | Continuity of Care Document ---
Author Organization [facility] Address [address] [place] [address] [place] [address] Phone Care Team Providers Care Caustic Strength Inspector Name Role Phone Nils Charles MD Unavailable [...] Diagnoses Date Provider Providers Copied on Encounter [facility], [address] [place] [address] [address], [place], [place], [address], [place] tel:[phone] NICOLE FAGAN Professional 2-4 wk YAG PC PO (chief complaint) Encounter for examination following surgery 8 Melvin Wray. [address] [facility], [address], [place], [place], [address], [place]. tel:[phone] [facility], [address], [place], [place], [address], [place] tel:[phone] NICOLE Ramos RYLAN Professional YAG-PC Eval (chief complaint) Bilateral artificial lens implantOther secondary cataract, right eyeOther secondary cataract, left eye 8 Carlos Nino. [address], [address], [place], [place], [address], [place]. tel:[phone] Family History Family Member Type Diagnosis Age [...]
--- OUTSIDE RECORDS SUMMARY | 2024-12-22 11:33 | XMS_ITS | Clinical Summary ---
Author Organization [facility] Care Team Providers Care Spooling Operator Name Role Phone Unavailable Primary Care Provider [...]
--- OUTSIDE RECORDS SUMMARY | 2024-12-22 11:33 | XMS_ITS | Patient Health Summary ---
Author Organization [facility] Address [address] [place] [address] Care Team Providers Care Shower Maid Name Role Phone Juvenal Tapia MD Primary Care Provider Note from [facility],non-owned Affiliates and Associated Physician Practices is amultiple site organization consisting of ambulatory clinics and hospital sitesin [place], [place], [place] and [place]. This disclosure is being madepursuant to the Care Everywhere program and may not contain all information available regarding this patient. Last updated 18.[facility] Allergies * Acetaminophen(Other) * Nifedipine(Rash,Other) -Medium Criticality [...] * vitamin D, ergocalciferol, (Drisdol) 1.25 MG (75597 UT) capsule(Started 02/15/2024) Take 1 (one) capsule [...] 14.54 04/27/2024 3:00 PM CDT Procedures * LEGAL DOCUMENT ASSISTANT ANTIBODY(Performed 01/05/2024) Performed for Elevated antinuclear antibody [...] osteoarthritis type, Vitamin D deficiency Results * LEGAL DOCUMENT ASSISTANT ANTIBODY (01/05/2024 2:36 PM CDT) LEGAL DOCUMENT ASSISTANT Antibody 0.6 0.0 - 0.9 AI [employer] INSURANCE BILL Blood BLOOD SPECIMEN / Unknown 01/05/2024 2:36 PM CDT 01/05/2024 Narrative Resulting Agency Comment Lab Testing performed at: [facility] [address] [place] [address] [phone] Mike Campbell MD LAB - CHEMISTRY ORDE MERLY Performing Organization Address City/[facility]/ZIP Co de Phone Number [employer] INSURANCE BILL [address] [place] [address] * CENTROMERE B ANTIBODIES (01/05/2024 2:35 PM CDT) Centromere B Antibody <0.2 0.0 - 0.9 AI [employer] INSURANCE BILL Blood BLOOD SPECIMEN / Unknown 01/05/2024 2:35 PM CDT 01/05/2024 Narrative Resulting Agency Comment Lab Testing performed at: [facility] [address] [place] [address] [phone] Mike Campbell MD LAB - SEROLOGY ORDER YAZMIN [employer] INSURANCE BILL [address] [place] [address] * CYCLIC CITRUL PEPTIDE ANTIBODY IGG/IGA (CCP) (01/05/2024 2:35 PM CDT) CCP Antibodies IgG/IgA 14 0 - 19 units [facility] INSURANCE BILL Comment: Negative <20 Weak positive 20 - 39 Moderate positive 40 - 59 Strong positive >59 Blood BLOOD SPECIMEN / Unknown 01/05/2024 2:35 PM CDT 01/05/2024 Narrative Resulting Agency Comment Lab Testing performed at: [facility] [place] [address] [facility] [phone] Mike Campbell MD LAB - SEROLOGY ORDER YAZMIN [facility] INSURANCE BILL [address] [place] [address] * (ABNORMAL) ISRAEL STAINING PATTERNS REFLEXED (01/05/2024 [...] observation. Note [facility] INSURANCE BILL Comment: Pattern Potential Disease Association Homogeneous Systemic Lupus Erythematosus, Drug Induced Systemic Lupus Erythematosus, Chronic Autoimmune hepatitis, Juvenile Idiopathic Arthritis Speckled Sjogren Syndrome, Systemic Lupus Erythematosus, Subacute Cutaneous Lupus, Lupus, Congenital Heart Block, Mixed Connective Tissue Disease, Scleroderma-diffuse, Scleroderma-Autoimmune Myositis Overlap Syndrome, Systemic Lupus Fiateauvcwdhb-Crhgwliuohh-Vahrjugdef Myositis Overlap Syndrome, Systemic Autoimmune Rheumatic Disease, Undifferentiated Connective Tissue Disease Nucleolar Systemic Sclerosis, Scleroderma-Autoimmune Myositis Overlap Syndrome, Sjogren Syndrome, Raynaud phenomenon, Pulmonary Arterial Hypertension, Systemic Autoimmune Rheumatic Disease, Cancer Centromere Scleroderma-CREST, Limited Cutaneous SSc, Raynaud's Phenomenon, Primary Biliary Cholangitis Nuclear Dot Primary Biliary Cholangitis Nuclear Primary Biliary Cholangitis, Autoimmune Membrane Hepatitis/Liver disease, Systemic Autoimmune Rheumatic Disease, Autoimmune Cytopenias, Linear Scleroderma, Antiphospholipid Syndrome 01/05/2024 2:35 PM CDT 01/05/2024 Narrative Resulting Agency Comment Lab Testing performed at: [facility] [phone] Mike Campbell MD LAB - PATHOLOGY/CYTO LOGY ORDERABLES [facility] INSURANCE BILL [address] [place] [address] * URIC ACID BLOOD (01/05/2024 2:35 PM CDT) Uric Acid 6.2 3.1 - 7.9 mg/dL [facility] INSURANCE BILL Comment:Therapeutic target f or gout patients: <6.0 Blood BLOOD SPECIMEN / Unknown 01/05/2024 2:35 PM CDT 01/05/2024 Narrative Resulting Agency Comment [facility]: [facility] [address] [facility] [phone] Mike Campbell MD LAB - CHEMISTRY ORDE RABLES Performing Organization Address City/[facility] Co de Phone Number [facility] INSURANCE BILL [address] [place] [address] * ANCA VASCULITIS PANEL (01/05/2024 2:35 PM [...] be based solely on ANCA IFA results. The International ANCA [employer] Consensus recommends follow up testing of positive sera with both KS-3 and MPO-ANCA enzyme immunoassays. As many as [...] Resulting Agency Comment Lab Testing performed at: [facility] [phone] Mike Campbell MD LAB - CHEMISTRY MEGHANA MORELAND [facility] INSURANCE BILL [address] [place] [address] * BARRAZA (SM) ANTIBODY BHASKAR (01/05/2024 2:35 PM CDT) Barraza (BHASKAR) Antibody <0.2 0.0 - 0.9 AI [facility] INSURANCE BILL Blood BLOOD SPECIMEN / Unknown 01/05/2024 2:35 PM CDT 01/05/2024 Narrative Resulting Agency Comment Lab Testing performed at: [facility] [address] [facility] [phone] Mike Campbell MD LAB - CHEMISTRY MEGHANA MORELAND Performing Organization Address City/[facility]/ZIP Co de Phone Number [facility] INSURANCE BILL [address] [place] [address] * RHEUMATOID FACTOR BLOOD QUANTITATIVE (01/05/2024 2:35 PM CDT) Rheumatoid Factor <10.0 <14.0 IU/mL [facility] INSURANCE BILL Blood BLOOD SPECIMEN / Unknown 01/05/2024 2:35 PM CDT 01/05/2024 Narrative Resulting Agency Comment Lab Testing performed at: [facility] [address] [facility] [phone] Mike Campbell MD LAB - CHEMISTRY MEGHANA MORELAND [facility] INSURANCE BILL [address] [place] [address] * C-REACTIVE PROTEIN (01/05/2024 2:35 PM CDT) C-Reactive Protein 3 0 - 10 mg/L [facility] INSURANCE BILL Blood BLOOD SPECIMEN / Unknown 01/05/2024 2:35 PM CDT 01/05/2024 Narrative Resulting Agency Comment Lab Testing performed at: [facility] [address] [facility] [phone] Mike Campbell MD LAB - CHEMISTRY MEGHANA MORELAND Performing Organization Address City/[facility]/ZIP Co de Phone Number [facility] INSURANCE BILL [address] [place] [address] * (ABNORMAL) TANIA BLOOD SCREEN W/REFLEX TITER (01/05/2024 2:35 PM CDT) TANIA Positive(A ) [facility] INSURANCE BILL Comment: Negative <1:80 Borderline 1:80 Positive >1:80 Blood BLOOD SPECIMEN / Unknown 01/05/2024 2:35 PM CDT 01/05/2024 Narrative Resulting Agency Comment Lab Testing performed at: [facility] [address] [facility] [phone] Mike Campbell MD LAB - CHEMISTRY MEGHANA MORELAND Performing Organization Address [facility] Co de Phone Number [facility] INSURANCE BILL [address] [place] [address] * SS-B (SJOGREN'S) ANTIBODY (01/05/2024 2:35 PM CDT) Sjogren's Antibodies (SSB) <0.2 0.0 - 0.9 AI [facility] INSURANCE BILL Blood BLOOD SPECIMEN / Unknown 01/05/2024 2:35 PM CDT 01/05/2024 Narrative Resulting Agency Comment Lab Testing performed at: [facility] [address] [facility] [phone] Mike Campbell MD LAB - CHEMISTRY MEGHANA MORELAND Performing Organization Address [facility]/ZIP Co de Phone Number [facility] INSURANCE BILL [address] [place] [address] * SS-A (SJOGREN'S) ANTIBODY (01/05/2024 2:35 PM CDT) Sjogren's Antibodies (SSA) <0.2 0.0 - 0.9 AI [facility] INSURANCE BILL Blood BLOOD SPECIMEN / Unknown 01/05/2024 2:35 PM CDT 01/05/2024 Narrative Resulting Agency Comment Lab Testing performed [facility]: [facility] [address] [facility] [phone] Mike Campbell MD LAB - CHEMISTRY MEGHANA MORELAND [facility] INSURANCE BILL [address] [place] [address] * (ABNORMAL) SCLERODERMA 70 (SCL) ANTIBODY (01/05/2024 2:35 PM CDT) Pathologist [facility] Antiscleroderm a-70 Antibody 2.0(H) 0.0 - 0.9 [facility] INSURANCE BILL Blood BLOOD SPECIMEN / Unknown 01/05/2024 2:35 PM CDT 01/05/2024 Narrative Resulting Agency Comment Lab Testing performed at: [facility] [address] [facility] [phone] Mike Campbell MD LAB - CHEMISTRY MEGHANA MORELAND Performing Organization Address City/[facility]/ZIP Co de Phone Number [facility] INSURANCE BILL [address] [place] [address] * DNA ANTIBODY DOUBLE STRANDED (01/05/2024 2:35 PM CDT) [facility] Anti-dsDNA Quantitative <1 0 - 9 IU/mL [facility] INSURANCE BILL Comment: Negative <5 Equivocal 5 - 9 Positive >9 Blood BLOOD SPECIMEN / Unknown 01/05/2024 2:35 PM CDT 01/05/2024 Narrative Resulting Agency Comment Lab Testing performed at: [facility] [address] [facility] [phone] Mike Campbell MD LAB - HEMATOLOGY ORD ERABLES [facility] INSURANCE BILL [address] [place] [address] * (ABNORMAL) VITAMIN D 25-HYDROXY (01/05/2024 2:35 PM CDT) [facility] Vitamin D, 25 Hydroxy 16.5(L) 30.0 - 100.0 ng/mL [facility] INSURANCE BILL Comment: Vitamin D deficiency has been defined by the Ismay of Medicine and an Endocrine Society practice guideline as a level of serum 25-OH vitamin D less than 20 ng/mL (1,2). The Endocrine Society went on to further define vitamin D insufficiency as a level between 21 and 29 ng/mL (2). 1. IOM (Ismay of Medicine). 2010. Dietary reference intakes for calcium and D. [place]: The National Academies Press. 2. Mary MF, Mildred GOLDBERG, Daniel DAHL, et al. Evaluation, treatment, and prevention of vitamin D deficiency: an Endocrine Society clinical practice guideline. JCEM. 2010; 96(7):1911-30. Blood BLOOD SPECIMEN / Unknown 01/05/2024 2:35 PM CDT 01/05/2024 Narrative Resulting Agency Comment Lab Testing performed at: [email or web address] [facility] [phone] Mike Campbell MD LAB - CHEMISTRY MEGHANA MORELAND Performing Organization Address City/[facility]/ZIP Co de Phone Number [facility] INSURANCE BILL [address] [place] [address] * ANGIOTENSIN CONVERTING ENZYME BLOOD (01/05/2024 2:35 PM CDT) Angiotensin-Con verting Enzyme 59 14 - 82 U/L [facility] INSURANCE BILL Blood BLOOD SPECIMEN / Unknown 01/05/2024 2:35 PM CDT 01/05/2024 Narrative Resulting Agency Comment Lab Testing performed at: [facility] [address] [facility] [phone] Mike Campbell MD LAB - CHEMISTRY MEGHANA MORELAND [facility] INSURANCE BILL [address] [place] [address] * ERYTHROCYTE SEDIMENTATION RATE (01/05/2024 2:35 PM CDT) Erythrocyte Sedimentation Rate Westergren 24 0 - 40 mm/hr [facility] INSURANCE BILL Blood BLOOD SPECIMEN / Unknown 01/05/2024 2:35 PM CDT 01/05/2024 Narrative Resulting Agency Comment Lab Testing performed at: [facility] [place] [address] [facility] [phone] Mike Campbell MD LAB - HEMATOLOGY ORD ERABLES [facility] INSURANCE BILL [address] [place] [address] * CBC WITH DIFFERENTIAL (01/05/2024 2:35 PM [...] Resulting Agency Comment Lab Testing performed at: [facility] [address] [facility] [phone] Mike Campbell MD LAB - HEMATOLOGY ORD ERABLES [facility] INSURANCE BILL [address] [place] [address] * (ABNORMAL) COMPREHENSIVE METABOLIC PANEL (01/05/2024 2:35 [...] Resulting Agency Comment Lab Testing performed at: [facility] [address] [facility] [phone] Mike Campbell MD LAB - CHEMISTRY MEGHANA MORELAND [facility] INSURANCE BILL [address] [place] [address] * (ABNORMAL) PROTEIN CREATININE RATIO URINE RANDOM [...] Resulting Agency Comment Lab Testing performed at: [facility] [address] [facility] [phone] Mike Campbell MD LAB - URINE CHEMISTR Y ORDERABLES [facility] INSURANCE BILL [address] [place] [address] * CK BLOOD (01/05/2024 2:35 PM CDT) CK 112 26 - 161 U/L [facility] INSURANCE BILL Blood BLOOD SPECIMEN / Unknown 01/05/2024 2:35 PM CDT 01/05/2024 Narrative Resulting Agency Comment Lab Testing performed at: [facility] [address] [facility] [phone] Mike Campbell MD LAB - CHEMISTRY MEGHANA MORELAND [facility] INSURANCE BILL [address] [place] [address] * (ABNORMAL) COMPLEMENT C3 C4 PANEL (01/05/2024 2:35 PM CDT) Complement C3 95 82 - 167 mg/dL [facility] INSURANCE BILL Complement C4 10(L) 12 - 38 mg/dL [facility] INSURANCE BILL Blood BLOOD SPECIMEN / Unknown 01/05/2024 2:35 PM CDT 01/05/2024 Narrative Resulting Agency Comment Lab Testing performed at: [address] [phone] Mike Campbell MD LAB - CHEMISTRY MEGHANA MORELAND Performing Organization Address [facility]/ZIP Co de Phone Number [facility] INSURANCE BILL [address] [place] [address] * PROTEIN ELECTROPHORESIS BLOOD (01/05/2024 2:35 PM CDT) Albumin 3.3 2.9 - 4.4 g/dL [facility] INSURANCE BILL Alpha-1 Globulin 0.3 0.0 - 0.4 g/dL [facility] INSURANCE BILL Aefik-1-Uiglcfhh 0.7 0.4 - 1.0 g/dL [facility] INSURANCE [...] scan will follow via computer, mail, or excellence specialist delivery. P E Interpretation, S [facility] INSURANCE BILL Comment: The SPE pattern appears unremarkable. Evidence of monoclonal protein is not apparent. Blood BLOOD SPECIMEN / Unknown 01/05/2024 2:35 PM CDT 01/05/2024 Narrative Resulting Agency Comment Lab Testing performed at: [facility] [address] [facility] [phone] Mike Campbell MD LAB - CHEMISTRY MEGHANA MORELAND Performing Organization Address [facility]/ZIP Co de Phone Number [facility] INSURANCE BILL [address] [place] [address] * XR HAND BILAT 3VW OR MORE (12/23/2023 1:58 PM COKE STILL CLEANER) Anatomical Region Laterality Modality Upper Extremity, Wrist / Hand Ra diographic Imaging 12/23/2023 2:10 PM COKE STILL CLEANER Narrative 12/23/2023 2:11 PM COKE STILL CLEANER PROCEDURE(s): XR HAND BILAT 3VW OR MORE [...] PM Mike Campbell MD [facility]ST[facility] Care Teams Shower Maid Relationship Specialty Start Date End Date Juvenal Tapia MD [address] [place] [address] PCP - General Family Medicine 12/23/23
--- OUTSIDE RECORDS SUMMARY | 2024-12-22 11:33 | XMS_ITS | Referral Summary ---
Author Organization [facility] Address [address] [place] [address] Care Team Providers Care Contact Lens Polisher Name Role Phone Juvenal Tapia MD Primary Care Provider Source Comments [facility],non-owned Affiliates and Associated Physician Practices is amultiple site organization consisting of ambulatory clinics and hospital sitesin [place], [place], [place] and [place]. This disclosure is being madepursuant to the Care Everywhere program and may not contain all information available regarding this patient. Last updated 18.[facility] Allergies Active Allergy Reactions Criticality Noted Date [...] Active vitamin D, ergocalciferol, (Drisdol) 1.25 MG (09483 UT) capsule Take 1 (one) capsule by [...] Description 02/24/2025 11:15 AM CDT Office Visit [facility] - Rheumatology [address] [facility] [address] [place] [address] [place] [address] [facility] [address] [place] [address] Care Teams Contact Lens Polisher Relationship Specialty Start Date End Date Juvenal Tapia MD [address] [place] [address] PCP - General Family Medicine 12/23/23
--- OUTSIDE RECORDS SUMMARY | 2024-12-22 11:33 | XMS_ITS | Encounter Summary ---
Author Organization [facility] Address [address] [place] [address] Care Team Providers Care Telephone Sales Representative Name Role Phone Juvenal Tapia MD Primary Care Provider Encounter Details Date Type Department Care Team (Late st Contact Info) Description 12/14/2024 Results Follow-Up [facility] Gastroenterology at [address] [place] [address] Lindsey Vazquez PA [address] [place] [address] [address] [place] [address] Social History Tobacco Use Types Packs/Day Years Used Date Smoking Tobacco: Never Smokeless Tobacco: Never Alcohol Use Standard Drinks/Week Comments No 0 (1 standard drink = 0.6 oz pur e alcohol) AUDIT-C Answer Date Recorded Q1: How often do you have a drink containing alc ohol? Never 12/10/2024 Average Number of Drinks Not on file 025 Frequency of Binge Drinking Not on file 11/27 Personal Safety Answer Date Recorded Have you ever been in or are you currently in a harmful physical or emotional relationship or is someone making you feel afraid or unsafe? Denies 07/09/2023 Comments No Sex and Gender Information Value Date Recorded Sex Assigned at Not on file Legal Sex Female 7:54 PM FORMAL WAITER/WAITRESS Gender Identity Not on file Sexual Orientation Not on file documented as of this encounter Miscellaneous Notes * Result Encounter Note - Ying Denise LPN - 12/20/2024 8:48 AM FORMAL WAITER/WAITRESS Pt made aware to get labwork done next week AL WAITER/WAITRESS * Result Encounter Note - Ying Denise LPN - 12/15/2024 10:05 AM FORMAL WAITER/WAITRESS Pt is agreeable to all suggested lab and procedure testing pt has been scheduled for EGD with on 02-07-25 at 1230 AL WAITER/WAITRESS documented in this encounter Plan of Treatment Upcoming Encounters Date Type Department Care Team (Latest Contact Info) Description 02/07/2025 12:30 PM CDT Hospital Encounter [address] [address] Mando Donohue MD [address] [place] [address] DR [address] [place] [address] 02/07/2025 12:30 PM CDT - 02/07/2025 1:00 PM CDT Surgery [address] [address] Mando Donohue MD [address] [place] [address] DR [address]IET[address] [place] [address] ESOPHAGOGASTRODUODENOSCOPY Scheduled Procedures Name Priority Associated Diagnoses Date/Ti me ESOPHAGOGASTRODUODENOSCOPY Celiac disease Other specified diseases of the digestive system 02/07/2025 12:30 PM CDT documented as of this encounter Visit Diagnoses Not on filedocumented in this encounter Care Teams Telephone Sales Representative Relationship Specialty Start Date End Date Juvenal Tapia MD PCP - General Family Practice 10/10/22 documented as of this encounter
--- OUTSIDE RECORDS SUMMARY | 2024-12-22 11:34 | XMS_ITS | Referral Summary ---
Author Organization [facility] Address [address] [place] [address] Care Team Providers Care Site Inspector Name Role Phone Juvenal Tapia MD Primary Care Provider Encounters Date Type Department Care Team Description 12/20/2024 9:55 AM [facility] Lab [address] [address] Hepatic steatosis 12/17/2024 Orders Only [facility] G[facility] at [address], [place] [address] Lindsey Vazquez PA Elevated alkaline phosphatase level (Primary Dx) 12/15/2024 Telephone [facility] G[facility]ology at [address] [address] Ying Denise LPN 12/14/2024 Results Follow-Up [facility] G[facility] at [address], [place] [address] Lindsey Vazquez PA 12/10/2024 1:40 PM [facility] Lab [address] Hepatic steatosis; Abnormal findings on diagnostic imaging of liver and biliary tract 12/10/2024 1:00 PM SOLID DIE CUTTER Office Visit [facility] at [address], [place] [address] Lindsey Vazquez PA Hepatic steatosis (Primary Dx); Abnormal findings on diagnostic imaging of liver and biliary tract; Hepatic cyst; Internal hemorrhoids; Loose stools from Last 3 Months Allergies Active Allergy Reactions Criticality Noted Date Comments Loperamide Hives Medium 04/29/2023 Nifedipine Prednisone Hives Reaction: Hives, , Medications levothyroxine (SYNTHROID) 75 mcg tablet Take 1 tablet (75 mcg total) by mouth software release manager before breakfast Active vit C/E/Zn/coppr/l utein/zeaxan (PRESERVISION AREDS-2 ORAL) Take 1 capsule by mouth daily Active CALCIUM ORAL Take 2 capsules by mouth daily Active cyanocobalamin , vitamin B-12, (VITAMIN B-12 ORAL) Take 1 Caplet by mouth as needed Couple times a month Active iron 18 mg tablet Take by mouth Active vitamin D3-vitamin K2 25 mcg (1,000 unit)-90 mcg tablet,disinte grating Take 1 capsule by mouth daily Active diphenhydrAMIN E (BENADRYL) 25 mg capsule Take 1 tablet/capsul e (25 mg total) by mouth 4 (four) times a day as needed for itching for up to 10 doses 30 capsule 05/02/20 Active cholecalcifero l (VITAMIN D-3) 50,000 unit capsule Take 1 capsule (50,000 Units total) by mouth 2 (two) times a week Active cholestyramine (QUESTRAN) 4 gram packet Take 1 packet by mouth nightly for 5 doses 5 packet 05/02/20 025 Discontinued Active Problems Problem Noted Date Diagnosed Date Celiac disease 12/15/2024 Other specified diseases of the digestive system 12/15/2024 Family history of colon cancer 05/13/2023 Colitis [...] on file Legal Sex Female 7:54 PM SOLID DIE CUTTER Gender Identity Not on file Sexual Orientation Not on file Last Filed Vital Signs Vital Sign Reading Time Taken Comments Blood Pressure 116/69 12/10/2024 1:01 PM SOLID DIE CUTTER Pulse 91 12/10/2024 1:01 PM SOLID DIE CUTTER Temperature 36.8 C (98.2 F) 07/09/2023 10:33 AM CDT Respiratory Rate 16 07/29/2024 10:55 AM CDT Oxygen Saturation 95% 12/10/2024 1:01 PM SOLID DIE CUTTER Inhaled Oxygen Concentration - - Weight 41 kg (90 lb 4.8 oz) 12/10/2024 1:[address] Height 165.1 cm (5' 5 ) 12/10/2024 1:01 PM SOLID DIE CUTTER Body Mass Index 15.03 12/10/2024 1:01 PM SOLID DIE CUTTER Plan of Treatment Upcoming Encounters Date Type Department Care Team (Latest Contact Info) Description 02/07/2025 12:30 PM CDT Hospital Encounter [address] [address] Mando Donohue MD [address] [facility] [address] PRIET[place] [address] [place] [id number] 02/07/2025 12:30 PM CDT - 02/07/2025 1:00 PM CDT Surgery [address] [address] Mando Donohue MD [address] [place] [address] [place] [address] ESOPHAGOGASTRODUODENOSCOPY Scheduled Procedures Name Priority Associated Diagnoses Date/Ti me ESOPHAGOGASTRODUODENOSCOPY Celiac disease Other specified diseases of the digestive system 02/07/2025 12:30 PM CDT Procedures Procedure Name Priority Date/Time Associated Diagnosis Comments BLOOD MISC TO HOLDREGE Routine 12/20/2024 10 :00 AM SOLID DIE CUTTER FECAL FAT, QUANTITATIVE Routine 12/20/2024 8:15 AM SOLID DIE CUTTER Hepatic steatosis TISSUE TRANSGLUTAMINASE, IGA Routine 12/10/2024 1:41 PM SOLID DIE CUTTER CELIAC REFLEX PANEL Routine 12/10/2024 1 :41 PM SOLID DIE CUTTER Hepatic steatosis HEPATIC FUNCTION PANEL Routine 12/10/2024 1:41 PM SOLID DIE CUTTER Hepatic steatosis [id number], TUMOR MARKER Routine 12/10/2024 1:41 PM SOL[facility] DIE CUTTER Hepatic steatosis Abnormal findings on diagnostic imaging of liver and biliary tract FIBRO TEST-ACTI TEST Routine 12/10/2024 1:41 PM SOLID DIE CUTTER Hepatic steatosis DEXA AXIAL SKELETON BONE DENSITY 1 OR MORE SITES Routine 09/05/2017 4:59 PM SOLID DIE CUTTER from Last 3 Months or Most Recently Relevant to Health Maintenance Results * Fecal fat, quantitative (12/20/2024 8:15 AM SOLID DIE CUTTER) Weight, fecal 41 g [place] ref Lab Period, fecal Random H [facility] ([place]) Comment: More reliable results can be obtained from a timed collection. 48 and 72 hour collections will give the most reliable results. Percent Fat >20% in a random collection is suggestive of a fat malabsorption disorder and should be confirmed with a timed collection. Fat solids, 24 hr fecal Not Reported [facility] ([place]) Fat, percent of solids, fecal 18 <20 [facility] ([place]) Comment: ADDITIONAL INFORMATION This test was developed and its performance characteristics determined by [facility] in a manner consistent with CLIA requirements. This test has not been cleared or approved by the U.S. Food and Drug Administration. Test Performed by: [facility] - [address] [address] Rn Circulating: Hannah Quintanilla Ph.D.; CLIA# [id number] Stool 12/20/2024 8:15 AM SOLID DIE CUTTER 12/20/2024 10:09 AM SOLID DIE CUTTER Narrative [facility] ([place]) - 12/22/2024 10:59 AM SOLID DIE CUTTER Duration (In hours)->72 Lindsey [facility] BODY FLUIDS AND STOO LS ORDERABLES Final Result [facility] ([place]) 1 [facility] Department [place] [address] [facility] * (ABNORMAL) Fibro Test-Acti Test (12/10/2024 1:41 PM SOLID DIE CUTTER) FibroTest Score 0.13 [facility] FibroTest Stage F0 [facility] ([place]) FibroTest Interpretation no fibrosis [facility] ([place]) Comment: FibroTest estimates liver fibrosis FibroTest Score Stage Interpretation 0.00-0.21 F0 no fibrosis 0.21-0.27 F0-F1 no fibrosis 0.27-0.31 F1 minimal fibrosis 0.31-0.48 F1-F2 minimal fibrosis 0.48-0.58 F2 moderate fibrosis 0.58-0.72 F3 advanced fibrosis 0.72-0.74 F3-F4 advanced fibrosis 0.74-1.00 F4 severe fibrosis (Cirrhosis) ActiTest Score 0.14 [facility] ([place]) ActiTest Grade A0 [facility] ([place]) ActiTest Interpretation no activity [facility] ([place]) Comment: ActiTest estimates necroinflammatory activity ActiTest Score Grade Interpretation 0.00-0.17 A0 no activity 0.17-0.29 A0-A1 no activity 0.29-0.36 A1 minimal activity 0.36-0.52 A1-A2 minimal activity 0.52-0.60 A2 significant activity 0.60-0.62 A2-A3 significant activity 0.62-1.00 A3 severe activity FibroTest-ActiTest Comment See Comment [facility] ([place]) Comment: The reliability of results is dependent on compliance with the preanalytical and analytical conditions recommended by [employer]. The tests have to be deferred for: acute hemolysis, acute hepatitis, acute inflammation, extra hepatic cholestasis. The advice of a specialist should be sought for interpretation in chronic hemolysis and Gilbert's syndrome. The test interpretation is not validated in liver transplant patients. Isolated extreme values of one of the components should lead to caution in interpreting the results. In case of discordance between a biopsy result and a test, it is recommended to seek advice of a specialist. The causes of these discordances could be due to a flaw of the test or to a flaw in the biopsy: i.e. a liver biopsy has a 33% variability rate for one fibrosis stage. FibroTest is interpretable for chronic hepatitis B and C, alcoholic and non alcoholic steatosis. ActiTest is interpretable for chronic hepatitis B and C. ADDITIONAL INFORMATION This test was developed and its performance characteristics determined by [facility] in a manner consistent with CLIA requirements. This test has not been cleared or approved by the U.S. Food and Drug Administration. [employer] Serial Number [id number] [facility] ([place]) APOLIPOPROTEIN A1 108(L) >=140 mg/dL [facility] ([place]) Ihwib-6-[id number], Ser 157 100 - 280 mg/dL [facility] ([place]) Haptoglobin, S 151 30 - 200 mg/dL [facility]) Alanine Aminotransferase (ALT), S 34 7 - 45 Units/L [facility] ([place]) Gamma Glutamyltransferase (GGT), S 9 5 - 36 Units/L [facility] ([place]) Bilirubin, Total, S <0.2 0.0 - 1.2 mg/dL [facility] ([place]) Comment: Test Performed by: [place] [id number] Rn Circulating: Hannah Quintanilla Ph.D.; CLIA# [id number] Test Performed by: [place] [address] Rn Circulating: Hannah Quintanilla Ph.D.; CLIA# [id number] Blood 12/10/2024 1:41 PM SOLID DIE CUTTER 12/10/2024 3:41 PM SOLID DIE CUTTER Lindsey [facility] BLOOD ORDERABLES Fin al Result Performing Organization Address [facility]/ZIP Co de Phone Number [facility] ([place]) 1 [facility] [employer] [place] [address] [place] ref Lab * (ABNORMAL) Celiac reflex panel (12/10/2024 1:41 PM SOLID DIE CUTTER) IgA 767(H) 61 - 356 mg/dL [place] ref Lab Celiac disease interpretation See Comment [facility] ([place]) Comment: See Comment: Celiac disease probable. Consider biopsy. Test Performed by: [place] [address] Rn Circulating: Hannah Quintanilla Ph.D.; CLIA# [id number] Blood 12/10/2024 1:41 PM SOLID DIE CUTTER 12/10/2024 3:41 PM SOLID DIE CUTTER Lindsey [facility] BLOOD ORDERABLES Fin al Result [facility] ([place]) [address] [place] [address] [place] ref Lab * (ABNORMAL) Tissue transglutaminase IgA (TGG-IgA Ab) (12/10/2024 1:41 PM SOLID DIE CUTTER) TTG ab, IgA >100.0(H) <4.0 (Negative ) units/mL Comment: Interpretation: Positive (>10.0) Test Performed by: [facility] [address] [place] [address] Rn Circulating: Hannah Quintanilla Ph.D.; CLIA# [id number] Interpretive data Negative: <15 units/mL Positive: > or equal to 15 units/mL Current interpretive data was last revised on 2017. Testing performed by: [facility], [address] [place] [address]., [address] Blood 12/10/2024 1:41 PM SOLID DIE CUTTER 12/10/2024 3:41 PM SOLID DIE CUTTER Lindsey [facility] BLOOD ORDERABLES Fin al Result [facility] ([place]) [address] [place] [address] Department of Laboratories [place], [place] [id number] * Xfxyo-1-[id number], Tumor Marker (12/10/2024 1:41 PM SOLID DIE CUTTER) Pathologist [facility] [place] alpha Fetoprotein <2.0 <=8.3 ng/mL Comment: Interpretive Data The Mine AFP assay procedure was used. Results from different manufacturers or methods may not be comparable. Serial testing should be performed using the same method. 0-1 month. AFP concentrations may reach or exceed 100,000 ng/mL after depending on gestational age and weight. 1-3 months 50 1000 ng/ml 3-6 months 10 500 ng/ml 6-12 months 3.0 100 ng/ml >1 year 0.0 8.3 ng/ml References Tsjhon Y. et al. J. Ped Surg 1978;13:155-156 Meghana De Dios et al. Clin Chem Lab Med 2018;57:783-797 Amara Raymundo et al. Clin Chem 2014;6735-5468. Current interpretive data was last revised 2022. Testing performed by: [facility], [address] [place] [address], [place]., [address] Blood 12/10/2024 1:41 PM SOLID DIE CUTTER 12/10/2024 6:32 PM SOLID DIE CUTTER us Lindsey [facility] BLOOD ORDERABLES Fin al Result [facility] ([place]) 1 [facility] [employer] [place] [address] * (ABNORMAL) Hepatic function panel (12/10/2024 1:41 PM SOLID DIE CUTTER) Bilirubin, total 0.2 0.1 - 1.2 mg/dL Bilirubin, direct <0.1 0.1 - 0.3 mg/dL [facility] ([place]) Protein, pl 7.7 6.5 - 8.5 g/dL [facility] ([place]) Albumin 3.7 3.5 - 5.0 g/dL [facility] ([place]) Alk phos 138(H) 40 - 130 Units/L [facility] ([place]) ALT 29 7 - 45 Units/L [facility] ([place]) AST 36 10 - 45 Units/L [facility] ([place]) Blood 12/10/2024 1:41 PM SOLID DIE CUTTER 12/10/2024 3:41 PM SOLID DIE CUTTER us Lindsey [facility] BLOOD ORDERABLES Fin al Result Performing Organization Address City/[facility]/ZIP Co de Phone Number [facility] ([place]) 1 [facility] [employer] [place] [address] * Dexa Axial Skeleton Bone Density 1 or 2 Site (09/05/2017 4:59 PM SOLID DIE CUTTER) Anatomical Region Laterality Modality N/A Nuclear Medicine 09/05/2017 4:59 PM SOLID DIE CUTTER Narrative 09/05/2017 5:40 PM SOLID DIE CUTTER DEXA Bone Density Axial Acc#: [id number] DATE OF EXAM: Sep 05 2017 EXAM: [...] on: Sep 05 2017 11:40A Transcribed by: ADA On: Sep 05 2017 11:38A Approved Electronically by: BHAVYA Aguilar, DR BORGES on: Sep 05 2017 11:38A Ordering DR: ALLISON JACKSON Attending DR: FREEMAN SANCHEZ Attending: FREEMAN SANCHEZ Requesting: ALLISON JACKSON Requesting Fax: -- Attending Attending ID: [id number] Requesting ID: [id number] Report To 1 ID: [id number] Report To 1 Name: FREEMAN SANCHEZ Report To 1 FAX: [phone] NextGen Order #: Procedure Note Miscellaneous, Not In File - 09/13/2017 DEXA Bone Density Axial Acc#: [id number] DATE OF EXAM: Sep 05 2017 EXAM: [...] on: Sep 05 2017 11:40A Transcribed by: ADA On: Sep 05 2017 11:38A Approved Electronically by: BHAVYA Aguilar, DR BORGES on: Sep 05 2017 11:38A Ordering DR: ALLISON JACKSON Attending DR: FREEMAN SANCHEZ Attending: FREEMAN SANCHEZ Requesting: ALLISON JACKSON Requesting Fax: -- Attending Attending ID: [id number] Requesting ID: [id number] Report To 1 ID: [id number] Report To 1 Name: FREEMAN SANCHEZ Report To 1 FAX: [phone] NextGen Order #: us Physician No IMG DXA PROCEDURES Edited Result - Final from Last 3 Months or Most Recently Relevant to Health Maintenance Insurance MEDICARE [facility] MEDICARE [employer] [place] Advance Directives For more information, please contact: [phone] * Full Code (Latest Code Status on [...] internal / external pacemakerNo cardioversion Care Teams Site Inspector Relationship Specialty Start Date End Date Juvenal Tapia MD PCP - General Family Practice 10/10/22
--- OUTSIDE RECORDS SUMMARY | 2024-12-22 11:34 | XMS_ITS | Clinical Summary ---
Author Organization [facility] Address [address] [place] [address] Care Team Providers Care Filter Screen Cleaner Name Role Phone Juvenal Tapia MD Primary Care Provider Allergies Active Allergy Reactions Criticality Noted Date Comments Loperamide Hives Medium 04/29/2023 Nifedipine Prednisone Hives Reaction: Hives, , Medications levothyroxine (SYNTHROID) 75 mcg tablet Take 1 tablet (75 mcg total) by mouth knowledge management consultant before breakfast Active vit C/E/Zn/coppr/l utein/zeaxan (PRESERVISION [...] up to 10 doses 30 capsule 05/02/20 23 Active cholecalcifero l (VITAMIN D-3) 50,000 unit capsule Take 1 capsule (50,000 Units total) by mouth 2 (two) times a week Active cholestyramine (QUESTRAN) 4 gram packet Take 1 packet by mouth nightly for 5 doses 5 packet 05/02/20 23 025 Discontinued Active Problems Problem Noted Date [...] disease 08/25/2013 Overview (01/30/2017): History of osteoporosis Encounters Date Type Department Care Team Description 12/20/2024 9:55 AM DRIVER OPERATOR Lab [facility] [address] [place] [address] Hepatic steatosis 12/17/2024 Orders Only [facility] G[facility]enterology at [address], [place] [address] Lindsey Vazquez PA Elevated alkaline phosphatase level (Primary Dx) 12/15/2024 Telephone [facility] Gastroenterology at [address] [place] [address] Ying Denise LPN 12/14/2024 Results Follow-Up [facility] G[facility]enterology at [address], [place] [address] Lindsey Vazquez PA 12/10/2024 1:40 PM DRIVER OPERATOR Lab [address] Hepatic steatosis; Abnormal findings on diagnostic imaging of liver and biliary tract 12/10/2024 1:00 PM DRIVER OPERATOR Office Visit [facility] G[facility]enterology at [address] [place] [address] Lindsey Vazquez PA Hepatic steatosis (Primary Dx); Abnormal findings on diagnostic imaging of liver and biliary tract; Hepatic cyst; Internal hemorrhoids; Loose stools from Last 3 Months Surgical History Surgery Date Site/Laterality Comments OTHER [...] hip nailing COLONOSCOPY 7-8 yrs ago at [facility] COLONOSCOPY 07/09/2023 Medical History Medical History Date Comments Anemia Anemia; Comments : [facility] 01/02/2015 - Hx Other Medical osteoarthritis; Comments: [facility] 01/02/2015 - Osteoporosis Osteoporosis Hypothyroidism Family History [...] on file Legal Sex Female 7:54 PM DRIVER OPERATOR Gender Identity Not on file Sexual Orientation Not on file Obstetrics History Para Term AB IAB SAB Ectopic Multiple Livin g Live Births 3 3 3 Date Outcome GA Total Labor Labor/2nd/3rd Weight Sex Type Anes PTL Shilpi A1 A5 Name Clin Term Term Term Last Filed Vital Signs Vital Sign Reading Time Taken Comments Blood Pressure 116/69 12/10/2024 1:01 PM DRIVER OPERATOR Pulse 91 12/10/2024 1:01 PM DRIVER OPERATOR Temperature 36.8 C (98.2 F) 07/09/2023 10:33 AM CDT Respiratory Rate 16 07/29/2024 10:55 AM CDT Oxygen Saturation 95% 12/10/2024 1:01 PM DRIVER OPERATOR Inhaled Oxygen Concentration - - Weight 41 kg (90 lb 4.8 oz) 12/10/2024 1:[address] Height 165.1 cm (5' 5 ) 12/10/2024 1:01 PM DRIVER OPERATOR Body Mass Index 15.03 12/10/2024 1:01 PM DRIVER OPERATOR Plan of Treatment Upcoming Encounters Date Type Department Care Team (Latest Contact Info) Description 02/07/2025 12:30 PM CDT Hospital Encounter [address] [address] Mando Donohue MD [address] [place] [address] DR PRIETO [address] [place] [address] 02/07/2025 12:30 PM CDT - 02/07/2025 1:00 PM CDT Surgery [address] [address] Mando Donohue MD [address] [place] [address] DR PRIETO [address] [place] [address] ESOPHAGOGASTRODUODENOSCOPY Scheduled Procedures Name Priority Associated Diagnoses Date/Ti me ESOPHAGOGASTRODUODENOSCOPY Celiac disease Other specified diseases of the digestive system 02/07/2025 12:30 PM CDT Health Maintenance Due Date Last Done Comments Depression Screening 1940 Hepatitis B Screening 1959 Well Visit 65+ 2006 Osteoporosis Screening-Bone Density Scan 09/05/2019 09/05/2017 Fall Risk Assessment 05/02/2024 05/02/2023 Covid-19 Vaccine (2023-2 5 season) 2024 10/05/2021, 01/14/2021, 12/24/2020 Influenza Vaccine (#1) 2024 2, 08/08/2021, 07/11/2020, Additional history exists DTaP/Tdap/Td Vaccine (2 - Td or Tdap) 05/17/2031 05/17/2021 Pneumococcal vaccine 65+ Completed 07/11/2020, 07/27 Zoster Vaccine Completed 10/26/2020, 08/21/2020 Procedures Procedure Name Priority Date/Time Associated Diagnosis Comments BLOOD MISC TO [place] Routine 12/20/2024 10 :00 AM DRIVER OPERATOR FECAL FAT, QUANTITATIVE Routine 12/20/2024 8:15 AM DRIVER OPERATOR Hepatic steatosis TISSUE TRANSGLUTAMINASE, IGA Routine 12/10/2024 1:41 PM DRIVER OPERATOR CELIAC REFLEX PANEL Routine 12/10/2024 1 :41 PM DRIVER OPERATOR Hepatic steatosis HEPATIC FUNCTION PANEL Routine 12/10/2024 1:41 PM DRIVER OPERATOR Hepatic steatosis [id number], TUMOR MARKER Routine 12/10/2024 1:41 PM DRIVER OPERATOR Hepatic steatosis Abnormal findings on diagnostic imaging of liver and biliary tract FIBRO TEST-ACTI TEST Routine 12/10/2024 1:41 PM DRIVER OPERATOR Hepatic steatosis DEXA AXIAL SKELETON BONE DENSITY 1 OR MORE SITES Routine 09/05/2017 4:59 PM DRIVER OPERATOR from Last 3 Months or Most Recently Relevant to Health Maintenance Results * Fecal fat, quantitative (12/20/2024 8:15 AM DRIVER OPERATOR) Weight, fecal 41 g Eure ref Lab Period, fecal Random H [facility] ([place]) Comment: More reliable results can be obtained from a timed collection. 48 and 72 hour collections will give the most reliable results. Percent Fat >20% in a random collection is suggestive of a fat malabsorption disorder and should be confirmed with a timed collection. Fat solids, 24 hr fecal Not Reported [facility] ([place]) Fat, percent of solids, fecal 18 <20 [facility] ([place]) Comment: ADDITIONAL INFORMATION This test was developed and its performance characteristics determined by [facility] in a manner consistent with CLIA requirements. This test has not been cleared or approved by the U.S. Food and Drug Administration. Test Performed by: [facility] - [address] [address] Soda Tester: Hannah Quintanilla Ph.D.; CLIA# [id number] Stool 12/20/2024 8:15 AM DRIVER OPERATOR 12/20/2024 10:09 AM DRIVER OPERATOR Narrative [facility] ([place]) - 12/22/2024 10:59 AM DRIVER OPERATOR Duration (In hours)->72 Lindsey BATES LAB BODY FLUIDS AND STOO LS ORDERABLES Final Result [facility] ([place]) 1 [facility] Department [place] [address] [facility] * (ABNORMAL) Fibro Test-Acti Test (12/10/2024 1:41 PM DRIVER OPERATOR) FibroTest Score 0.13 [facility] FibroTest Stage F0 [facility] ([place]) FibroTest Interpretation no fibrosis [facility] ([place]) Comment: FibroTest estimates liver fibrosis [...] A3 severe activity FibroTest-ActiTest Comment See Comment [facility] ([place]) Comment: The reliability of results is dependent on compliance with the preanalytical and analytical conditions recommended by Contracts [employer] Grants. The tests have to be deferred for: [...] developed and its performance characteristics determined by [facility] in a manner consistent with CLIA requirements. This test has not been cleared or approved by the U.S. Food and Drug Administration. [employer] Serial Number [id number] [facility] ([place]) APOLIPOPROTEIN A1 108(L) >=140 mg/dL [facility] ([place]) Mujou-2-Tolytcbxeaywt, Ser 157 100 - 280 mg/dL [facility] ([place]) Haptoglobin, S 151 30 - 200 mg/dL [facility] ([place]) Alanine Aminotransferase (ALT), S 34 7 - 45 Units/L [facility] ([place]) Gamma Glutamyltransferase (GGT), S 9 5 - 36 Units/L [facility] ([place]) Bilirubin, Total, S <0.2 0.0 - 1.2 mg/dL [facility] ([place]) Comment: Test Performed by: [place] [address] Soda Tester: Hannah Quintanilla Ph.D.; CLIA# [id number] Test Performed by: [place] [address] Soda Tester: Hannah Quintanilla Ph.D.; CLIA# [id number] Blood 12/10/2024 1:41 PM DRIVER OPERATOR 12/10/2024 3:41 PM DRIVER OPERATOR Lindsey BATES LAB BLOOD ORDERABLES Fin al Result Performing Organization Address [facility] Co de Phone Number [facility] ([facility]) 1 [facility] [place] [address] Eure ref Lab * (ABNORMAL) Celiac reflex panel (12/10/2024 1:41 PM DRIVER OPERATOR) IgA 767(H) 61 - 356 mg/dL Eure ref Lab Celiac disease interpretation See Comment [facility] ([place]) Comment: See Comment: Celiac disease probable. Consider biopsy. Test Performed by: [place] [address] Soda Tester: Hannah Quintanilla Ph.D.; CLIA# [id number] Blood 12/10/2024 1:41 PM DRIVER OPERATOR 12/10/2024 3:41 PM DRIVER OPERATOR Lindsey BATES LAB BLOOD ORDERABLES Fin al Result [facility] ([facility] 1 [facility] [place] [address] Eure ref Lab * (ABNORMAL) Tissue transglutaminase IgA (TGG-IgA Ab) (12/10/2024 1:41 PM DRIVER OPERATOR) TTG ab, IgA >100.0(H) <4.0 (Negative ) units/mL Comment: Interpretation: Positive (>10.0) Test Performed by: [facility] [address] [place] [address] Soda Tester: Hannah Quintanilla Ph.D.; CLIA# [id number] Interpretive data Negative: <15 units/mL Positive: > or equal to 15 units/mL Current interpretive data was last revised on 2017. Testing performed by: [facility], [address] [place] [address]., [address] Blood 12/10/2024 1:41 PM DRIVER OPERATOR 12/10/2024 3:41 PM DRIVER OPERATOR us Lindsey BATES LAB BLOOD ORDERABLES [facility] al Result [facility] ([facility]) [address] [place] [address] Department of Laboratories [place], [place] [id number] * Mlijs-8-Pxksydhzall, Tumor Marker (12/10/2024 1:41 PM DRIVER OPERATOR) alpha Fetoprotein <2.0 <=8.3 ng/mL Comment: Interpretive [...] ng/ml >1 year 0.0 8.3 ng/ml References Janette YDiamante et al. J. Ped Surg 1978;13:155-156 Meghana S. et al. Clin Chem Lab Med 2018;57:783-797 Amara Raymundo et al. Clin Chem 2014;4659-5771. Current interpretive data was last revised 2022. Testing performed by: [facility], [address] [place] [address]., [address] Blood 12/10/2024 1:41 PM DRIVER OPERATOR 12/10/2024 6:32 PM DRIVER OPERATOR Lindsey BATES LAB BLOOD ORDERABLES Fin al Result [facility] ([place]) 1 [facility] [place] [address] * (ABNORMAL) Hepatic function panel (12/10/2024 1:41 PM DRIVER OPERATOR) Bilirubin, total 0.2 0.1 - 1.2 mg/dL [...] [facility] ([place]) Blood 12/10/2024 1:41 PM DRIVER OPERATOR 12/10/2024 3:41 PM DRIVER OPERATOR us Lindsey BATES LAB BLOOD ORDERABLES Fin al Result Performing Organization Address [facility] Co de Phone Number [facility] ([place]) 1 [facility] [place] [address] * Dexa Axial Skeleton Bone Density 1 or 2 Site (09/05/2017 4:59 PM DRIVER OPERATOR) Anatomical Region Laterality Modality N/A Nuclear Medicine 09/05/2017 4:59 PM DRIVER OPERATOR Narrative 09/05/2017 5:40 PM DRIVER OPERATOR DEXA Bone Density Axial Acc#: [id number] DATE OF EXAM: Sep 05 2017 EXAM: [...] group population. Electronically signed by: Jose R Latif Jr., M.D. Interpreting Physician: DR JOSE R LATIF M.D. Read on: Sep 05 2017 11:40A Transcribed by: [facility] On: Sep 05 2017 11:38A Approved Electronically by: BHAVYA Aguilar, DR BORGES on: Sep 05 2017 11:38A Ordering DR: ALLISON JACKSON Attending DR: FREEMAN SANCHEZ Attending: FREEMAN SANCHEZ Requesting: ALLISON JACKSON Requesting Fax: -- Attending Attending ID: [id number] Requesting ID: [id number] Report To 1 ID: [id number] Report To 1 Name: FREEMAN SANCHEZ Report To 1 FAX: [phone] NextGen Order #: Procedure Note Miscellaneous, Not In File - 09/13/2017 DEXA Bone Density Axial Acc#: [id number] DATE OF EXAM: Sep 05 2017 EXAM: [...] group population. Electronically signed by: Jose R Latif Jr., M.D. Interpreting Physician: DR JOSE R LATIF M.D. Read on: Sep 05 2017 11:40A Transcribed by: [facility] On: Sep 05 2017 11:38A Approved Electronically by: BHAVYA Aguilar, DR BORGES on: Sep 05 2017 11:38A Ordering DR: ALLISON JACKSON Attending DR: FREEMAN SANCHEZ Attending: FREEMAN SANCHEZ Requesting: ALLISON JACKSON Requesting Fax: -- Attending Attending ID: [id number] Requesting ID: [id number] Report To 1 ID: [id number] Report To 1 Name: FREEMAN SANCHEZ Report To 1 FAX: [phone] NextGen Order #: us Physician No IMG DXA PROCEDURES Edited Result - Final from Last 3 Months or Most Recently Relevant to Health Maintenance Insurance MEDICARE [facility] MEDICARE [employer] Advance Directives For more information, please contact: [phone] * Full Code (Latest Code Status on [...] internal / external pacemakerNo cardioversion Care Teams Filter Screen Cleaner Relationship Specialty Start Date End Date Juvenal Tapia MD PCP - General Family Practice 10/10/22
[2024-12-23 08:04] LABS: Protein, Total 7.1 g/dL (6.1-8.1)
[2024-12-23 11:53] LABS: Creatinine, Random Urine 146 mg/dL (20-275); Total Prot/Creat ratio mg/mg 0.671 (0.024-0.184); Total Protein/Creatinine Ratio 671 mg/g creat (24-184)
[2024-12-23 20:43] LABS: Albumin 3.3 g/dL (3.8-4.8); Alpha 1 Globulin 0.4 g/dL (0.2-0.3); Alpha 2 Globulin 0.8 g/dL (0.5-0.9); Beta 1 Globulin 0.5 g/dL (0.4-0.6); Gamma Globulin 1.7 g/dL (0.8-1.7)
[2024-12-27 13:48] LABS: Immunofixation, Serum Normal pattern.
== END 2024-12-22 10:06 | disposition home or self-care (01) ==
LOC: ANHGOSHLAB 10:06
PROVIDERS: PCP Family Medicine; Visit Provider Internal Medicine Endocrinology, Diabetes & Metabolism
DX: R77.9 Abnormality of plasma protein, unspecified (principal)
CPT/HCPCS: 36415; 82570; 84155; 84156; 84165; 84166; 86334; 86335

== ENCOUNTER 2025-04-19 13:58 | Outpatient (CLI) | payer MEDICARE, OTHER, SELFPAY ==
[2025-04-19 14:44] LABS: Anion Gap 8 mmol/L (4-12); Blood Urea Nitrogen 22 mg/dL (7-17); Calcium 9.1 mg/dL (8.4-10.2); Carbon Dioxide 26 mmol/L (22-30); Chloride 105 mmol/L (98-107); Estimated Glomerular Filt Rate 60; Glucose 94 mg/dL (65-110); Phosphorus 5.2 mg/dL (2.5-4.5); Potassium 5.3 mmol/L (3.4-5.0); Sodium 139 mmol/L (137-145)
[2025-04-19 15:03] LABS: Vitamin D 25 Hydroxy 30.7 ng/mL
== END 2025-04-19 13:59 | disposition home or self-care (01) ==
LOC: ANHLAB 14:01
PROVIDERS: PCP Family Medicine; Visit Provider Internal Medicine Endocrinology, Diabetes & Metabolism
DX: M81.0 Age-related osteoporosis without current pathological fracture (principal); E55.9 Vitamin D deficiency, unspecified
CPT/HCPCS: 36415; 80069; 82306

== ENCOUNTER 2025-05-12 11:47 | Outpatient (CLI) | payer MEDICARE, OTHER, SELFPAY ==
--- OUTSIDE RECORDS SUMMARY | 2025-05-12 11:50 | XMS_ITS | Clinical Summary ---
Author Organization [facility] Address [address] [place] [address] Care Team Providers Care Mine Safety Manager Name Role Phone Juvenal Tapia MD Primary Care Provider Source Comments [facility],non-owned Affiliates and Associated Physician Practices is amultiple site organization consisting of ambulatory clinics and hospital sitesin [place], [place], [place] and [place]. This disclosure is being madepursuant to the Care Everywhere program and may not contain all information available regarding this patient. Last updated 18.[facility] Allergies Active Allergy Reactions Criticality Noted Date Comments Acetaminophen Other 01/27/2024 Racing HR Nifedipine Rash,Other Medium 01/21/2013 Blotchy spots everywhere Orasone Itching Low 03/29/2013 Prednisone Urticaria Medium 01/27/2024 Medications * Be aware that medications may not be up to date on this document. Alwaysverify current medications with the patient. levothyroxine (Synthroid) 75 MCG tablet Take 1 (one) tablet by mouth daily before breakfast Active cyanocobalamin (Vitamin B-12) injection INJECT 1000MCG (1ML) INTO THE MUSCLE ONCE MONTHLY 3 Active diphenhydrAMINE (Benadryl Allergy) 25 MG capsule Take 1 (one) capsule by mouth 3 Active vitamin D, ergocalciferol, (Drisdol) 1.25 MG (63073 UT) capsule Take 1 (one) capsule by mouth 4 Active levothyroxine (Synthroid) 75 MCG tablet Take 1 (one) tablet by mouth once daily Active hydrOXYzine HCl (Atarax) 10 MG tablet TAKE 1 TABLET BY MOUTH EVERYDAY AT BEDTIME 90 tablet 1 Active Active Problems Problem Noted Date Diagnosed [...] Alive Cancer - Colon Brother 2 Status: Decea sed Heart Disease Father Status: [facility] ed Heart Disease Mother Status: [facility] ed Heart Disease Sister Status: [...] Recorded Patient Health Questionnaire-2 Score 0 04/27/2024 Comments Unknown Sex and Gender Information Value Date Recorded Sex Assigned at Not on file Legal Sex Female 5:39 PM EMERGENCY MAN Gender Identity Not on file Sexual Orientation [...] 3:00 PM CDT Height 165.1 cm (5' 5) 04/27/2024 3:00 PM CDT Body Mass Index 14.54 04/27/2024 3:00 PM CDT Plan of Treatment Health Maintenance Due Date Last Done Comments MEDICARE AWV 12 MONTHS 1940 DTAP/TDAP/TD VACCINES (1 - Tdap) 1960 PNEUMOCOCCAL VACCINE 50+ (1 of 1 - PCV) 1991 ZOSTER VACCINE (1 of 2) 1991 Respiratory Syncytial Virus (RSV) Vaccine Pt: or over 60 yrs (1 - 1-dose 75+ series) 2016 COVID-19 VACCINE (2 - 2023-2 5 season) 2024 10/05/2021 DEPRESSION SCREENING 10/27/2024 04/27/2024 INFLUENZA VACCINE (#1) 2025 BONE DENSITY TESTING Completed 09/05/2017 HEPATITIS B VACCINE Aged Out No longe r eligible based on patient's age to complete this topic HIB VACCINE Aged Out No longer eligi ble based on patient's age to complete this topic HPV VACCINE Aged Out No longer eligi ble based on patient's age to complete this topic MENINGOCOCCAL (Group B) VACC INE SHARED DECISION-MAKING Aged Out No longer eligibl e based on patient's age to complete this topic MENINGOCOCCAL GROUPS A/C/Y/W VACCINE Aged Out No longer eligible b ased on patient's age to complete this topic Insurance [address] [place] [address] [employer] Care Teams Mine Safety Manager Relationship Specialty Start Date End Date Juvenal Tapia MD [address] [place] [address] PCP - General Family Medicine 12/23/23
--- OUTSIDE RECORDS SUMMARY | 2025-05-12 11:50 | XMS_ITS | Continuity of Care Document ---
Author Organization [facility] Address [address] [place] [address] [place] [address] Phone Care Team Providers Care Instrument Maintenance Supervisor Name Role Phone Nils Charles MD [...] Diagnoses Date Provider Providers Copied on Encounter [facility], [address] [place] [address] [address], [place], [place], [id number], [place] tel:[phone] NICOLE FAGAN Professional 2-4 wk YAG PC PO (chief complaint) Encounter for examination following surgery 8 Mel[address]ray. [address] [facility], [address], [place], [place], [id number], [place]. tel:[phone] [facility], [address], [place], [place], [id number], [place] tel:[phone] NICOLE Ramos RYLAN Professional YAG-PC Eval (chief complaint) Bilateral artificial lens implantOther secondary cataract, right eyeOther secondary cataract, left eye 8 Carlos Nino. [address], [address], [place], [place], [id number], [place]. tel:[phone] Family History Family Member Type Diagnosis Age [...]
--- OUTSIDE RECORDS SUMMARY | 2025-05-12 11:50 | XMS_ITS | Referral Summary ---
Author Organization [facility] Address [address] [place] [address] Care Team Providers Care Magician/Illusionist Name Role Phone Juvenal Tapia MD Primary Care Provider Encounters Date Type Department Care Team Description 03/17/2025 Results Follow-Up [facility] Gastroenterology at [address] [phone] Ruben Squires NP MRI Abdomen MRCP W WO Contrast Incl 3D 03/11/2025 10:58 AM CDT - 03/11/2025 11:59 PM CDT Hospital Encounter [facility] Center [address] [place] [address] Elevated alkaline phosphatase level Discharge Disposition: Discharge to home or self care 03/01/2025 Telephone [facility] Gastroenterology at [address] [address] Ying Denise LPN 03/01/2025 Telephone [facility] Gastroenterology at [address] [place] [address] Ying Denise LPN 02/28/2025 2:00 PM CDT Office Visit [facility] Gastroenterology at [address] [phone] Lindsey Vazquez PA Celiac disease (Primary Dx); Hepatic steatosis; Hepatic cyst; Internal hemorrhoids; Elevated alkaline phosphatase level 02/16/2025 Results Follow-Up [facility] Gastroenterology at [address] [place] [phone] Mando Donohue MD Surgical pathology from Last 3 Months Allergies Active Allergy Reactions Criticality Noted Date Comments Loperamide Hives Medium 04/29/2023 Nifedipine Prednisone Hives Reaction: Hives, , Medications levothyroxine (SYNTHROID) 75 mcg tablet Take 1 tablet (75 mcg total) by mouth magnetic tape composer operator before breakfast Active vit C/E/Zn/coppr/osvaldo tein/zeaxan (PRESERVISION [...] to 10 doses 30 capsule 3 Active cholecalciferol (VITAMIN D-3) 50,000 unit capsule Take [...] 04/30/2023 Metabolic acidosis, increased anion gap 04/30/20 23 Dehydration 04/28/2023 Acute colitis 04/28/2023 Diarrhea of presumed infectious origin 3 Hyponatremia 04/28/2023 Hypothyroidism 04/28/2023 Moderate malnutrition 04/28/2023 Contusion of left shoulder 09/18/2018 Contusion [...] often do you have a drink containing alcohol? Never 02/07/2025 Q2: How many drinks containi ng alcohol do you have on a typical day when you are drinking? Patient does not drink Q3: How often do you have si x or more drinks on one occasion? Never 02/07/2025 Personal Safety Answer Date Recorded Have you ever been in or are you currently in a harmful physical or emotional relationship or is someone making you feel afraid or unsafe? Denies 02/07/2025 Comments No Sex and Gender Information Value Date Recorded Sex Assigned at Not on file Legal Sex Female 7:54 PM CARPENTER MATE Gender Identity Not on file Sexual Orientation Not on file Last Filed Vital Signs Vital Sign Reading Time Taken Comments Blood Pressure 123/73 02/28/2025 1:56 PM CDT Pulse 105 02/28/2025 1:56 PM CDT Temperature 36.1 C (96.9 F) 02/07/2025 1:00 PM CDT Respiratory Rate 18 02/07/2025 1:00 PM CDT Oxygen Saturation 93% 02/28/2025 2:37 PM CDT Inhaled Oxygen Concentration - - Weight 40.5 kg (89 lb 3.2 oz) 02/28/2025 1:56 PM CDT Height 165.1 cm (5' 5) 02/28/2025 1:56 PM CDT Body Mass Index 14.84 02/28/2025 1:56 PM CDT Plan of Treatment Not on file Procedures Procedure Name Priority Date/Time Associated Diagnosis Comments MRI ABDOMEN MRCP W WO CONTRAST Schedule Routine, Read Routine (OP Routine) 03/11/2025 11:52 AM CDT Elevated alkaline phosphatase level DEXA AXIAL SKELETON BONE DENSITY 1 OR MORE SITES Routine 09/05/2017 4:59 PM CARPENTER MATE from Last 3 Months or Most Recently Relevant to Health Maintenance Results * MRI Abdomen MRCP W WO Contrast Incl 3D (03/11/2025 11:52 AM CDT) Anatomical Region Laterality Modality Body N/A Magnetic Resonan ce 03/17/2025 3:31 PM CDT Narrative 03/17/2025 3:49 PM CDT EXAM DESCRIPTION: MRI ABDOMEN MRCP W WO CONTRAST INCL 3D REASON FOR STUDY: Elevated alk-phos Pt recently diagnoses with celiac disease follow up with mri no symptoms TECHNIQUE: MRI of the abdomen performed without and with intravenous contrast according to the hepatic protocol. 3D MIP images rendered on scanning unit and reviewed at time of interpretation. All images stored on PACS. CONTRAST TYPE/DOSE: 9mL of GADOTERATE MEGLUMINE 0.5 MMOL/ML INTRAVENOUS SOLUTION (SO) injected via intravenous COMPARISON: 04/28/2023 FINDINGS: LOWER CHEST: Mitral annulus calcification. LIVER: No significant fat or iron deposition. Similar-appearing large lobulated left hepatic lobe cyst. Additional smaller scattered cysts. No concerning lesion. GALLBLADDER/BILE DUCTS: No acute cholecystitis. Concentrated bile or sludge within the gallbladder. No significant biliary ductal dilatation. SPLEEN: No significant abnormality. PANCREAS: Unchanged small pancreatic head cystic lesion measuring up to approximately 7 x 6 mm which may reflect a small side branch IPMN (series 3 image 21). No ductal dilatation or worrisome features. ADRENALS: Unchanged thickening of the left adrenal gland without discrete measurable nodule KIDNEYS/URETERS: No hydronephrosis. Small cysts. GASTROINTESTINAL: No obstruction or significant wall thickening of the visualized bowel. Appendix is not definitively visualized. However, there are no significant inflammatory changes within the right lower quandrant. LYMPH NODES: No pathologically enlarged lymphadenopathy. PERITONEUM/RETROPERITONEUM: No signficant ascites. VASCULATURE: Multifocal atherosclerotic changes of the abdominal aorta and its major branches. Grossly patent portal vein. MUSCULOSKELETAL: Multilevel degenerative changes of the visualized spine. No aggressive appearing enhancing osseous lesions. OTHER: No significant abnormality. IMPRESSION: No acute abnormality. No significant biliary ductal dilatation. 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 No ductal dilatation or worrisome features. Consider follow-up pancreatic protocol MRI or CT every 2 years for 4 years (Stop if stable). (ACR Management of Incidental Pancreatic Cysts; DOI: https://doi.org/10.1016/j.jacr.2017.03.010) Incidental and chronic findings as above. THIS IS AN ELECTRONICALLY VERIFIED FINAL REPORT 03/17/2025 3:49 PM - Electronically signed by Neo Romero M.D. NS: NS Report ID: [id number] Reading Location: [place] [address] Procedure Note Neo Romero MD - 03/17/2025 EXAM DESCRIPTION: MRI ABDOMEN MRCP W WO CONTRAST INCL 3D REASON FOR STUDY: Elevated alk-phos Pt recently diagnoses with celiac disease follow up with mri no symptoms TECHNIQUE: MRI of the abdomen performed without and with intravenous contrast according to the hepatic protocol. 3D MIP images rendered on scanning unit and reviewed at time of interpretation. All images storedon PACS. CONTRAST TYPE/DOSE: 9mL of GADOTERATE MEGLUMINE 0.5 MMOL/ML INTRAVENOUS SOLUTION (SO) injected via intravenous COMPARISON: 04/28/2023 FINDINGS: LOWER CHEST: Mitral annulus calcification. LIVER: No significant fat or iron deposition. Similar-appearing large lobulated left hepatic lobe cyst. Additional smaller scattered cysts. No concerning lesion. GALLBLADDER/BILE DUCTS: No acute cholecystitis. Concentrated bile orsludge within the gallbladder. No significant biliary ductal dilatation. SPLEEN: No significant abnormality. PANCREAS: Unchanged small pancreatic head cystic lesion measuring up to approximately 7 x 6 mm which may reflect a small side branch IPMN (series3 image 21). No ductal dilatation or worrisome features. ADRENALS: Unchanged thickening of the left adrenal gland without discrete measurable nodule KIDNEYS/URETERS: No hydronephrosis. Small cysts. GASTROINTESTINAL: No obstruction or significant wall thickening of the visualized bowel. Appendix is not definitively visualized. However,there are no significant inflammatory changes within the right lower quandrant. LYMPH NODES: No pathologically enlarged lymphadenopathy. PERITONEUM/RETROPERITONEUM: No signficant ascites. VASCULATURE: Multifocal atherosclerotic changes of the abdominal aortaand its major branches. Grossly patent portal vein. MUSCULOSKELETAL: Multilevel degenerative changes of the visualized spine.No aggressive appearing enhancing osseous lesions. OTHER: No significant abnormality. IMPRESSION: No acute abnormality. No significant biliary ductal dilatation. Unchanged small pancreatic head cystic lesion measuring up to 7 mm whichmay reflect a small side branch IPMN. No ductal dilatation or worrisomefeatures. Consider follow-up pancreatic protocol MRI or CT every 2 years for 4years (Stop if stable). (ACR Management of Incidental Pancreatic Cysts; DOI: https://doi.org/10.1016/j.jacr.2017.03.010) Incidental and chronic findings as above. THIS IS AN ELECTRONICALLY VERIFIED FINAL REPORT 03/17/2025 3:49 PM - Electronically signed by Neo Romero M.D. NS: NS Report ID: [id number] Reading Location: [id number] Lindsey [facility] IM MRI PROCEDURES Final Result * Dexa Axial Skeleton Bone Density 1 or 2 Site (09/05/2017 4:59 PM CARPENTER MATE) Anatomical Region Laterality Modality N/A Nuclear Medicine 09/05/2017 4:59 PM CARPENTER MATE Narrative 09/05/2017 5:40 PM CARPENTER MATE DEXA Bone Density Axial Acc#: [id number] DATE OF EXAM: Sep 05 2017 EXAM: [...] on: Sep 05 2017 11:40A Transcribed by: [facility] On: Sep 05 2017 11:38A Approved Electronically by: BHAVYA Aguilar, DR BORGES on: Sep 05 2017 11:38A Ordering DR: ALLISON JACKSON Attending DR: FREEMAN SANCHEZ Attending: FREEMAN SANCHEZ Requesting: ALLISON JACKSON Requesting Fax: -- Attending Attending ID: [id number] Requesting ID: [id number] Report To 1 ID: [id number] Report To 1 Name: FREEMAN SANCHEZ Report To 1 FAX: [phone] NextGen Order #: Procedure Note Miscellaneous, Not In File - 09/13/2017 DEXA Bone Density Axial Acc#: [id number] DATE OF EXAM: Sep 05 2017 EXAM: [...] on: Sep 05 2017 11:40A Transcribed by: [facility] On: Sep 05 2017 11:38A Approved Electronically by: BHAVYA Aguilar, DR BORGES on: Sep 05 2017 11:38A Ordering DR: ALLISON JACKSON Attending DR: FREEMAN SANCHEZ Attending: FREEMAN SANCHEZ Requesting: ALLISON JACKSON Requesting Fax: -- Attending Attending ID: [id number] Requesting ID: [id number] Report To 1 ID: [id number] Report To 1 Name: FREEMAN SANCHEZ Report To 1 FAX: [phone] NextGen Order #: us Physician No IMG DXA PROCEDURES Edited Result - Final from Last 3 Months or Most Recently Relevant to Health Maintenance Insurance MEDICARE [facility] MEDICARE [employer] [place] Advance Directives For more information, please contact: [phone] * Full Code (Latest Code Status on File) Date Activated Date Inactivated Comments 02/07/2025 11:48 AM 02/07/2025 5:23 PM * Full Code Date Activated Date Inactivated Comments 02/07/2025 11:48 AM 02/07/2025 11:48 AM * Full Code Date Activated Date Inactivated [...] internal / external pacemakerNo cardioversion Care Teams Magician/Illusionist Relationship Specialty Start Date End Date Juvenal Tapia MD PCP - General Family Practice 10/10/22
--- OUTSIDE RECORDS SUMMARY | 2025-05-12 11:50 | XMS_ITS | Clinical Summary ---
Author Organization [facility] Care Team Providers Care Brazing Machine Setter Name Role Phone Unavailable Primary Care Provider [...] Health Maintenance Due Date Last Done Comments Hepatitis C Virus (HCV) Screening 1940 Respiratory Syncytial Virus (RSV) Immunization (Adult) (1 - 1-dose 75+ series) 2016 SARS-COV-2 Immunization ( season) 2024 10/05/2021, 01/14/2021, 12/24/2020 Influenza Immunization (#1) 06/27/202507/27, 07/11/2020, 08/25/2019, Additional history exists Pneumococcal Immunization (50+ years) Completed 07/11/2020, 08/13/2013 Zoster Immunization Completed 10/26/2020, 0 DTaP/Tdap/Td Immunization Discontinued 05/17/2021 TdaP Immunization Completed 05/17/2021 Hepatitis B Immunization Aged Out No longer eligible based on patient's age to complete this topic Human Papillomavirus (HPV) Immunization Aged Out No longer eligible based on patient's age to complete this topic Meningococcal Immunization (ACWY) Aged Out No longer eligible based on patient's age to complete this topic Rotavirus Immunization Aged Out No lo nger eligible based on patient's age to complete this topic
--- OUTSIDE RECORDS SUMMARY | 2025-05-12 11:50 | XMS_ITS | Encounter Summary ---
Author Organization [facility] Address [address] [place] [address] Care Team Providers Care Compressed Gas Equipment Mechanic Name Role Phone Juvenal Tapia MD Primary Care Provider Encounter Details Date Type Department Care Team (Latest Contact Info) Description 03/17/2025 Results Follow-Up [facility] Gastroenterology at [address] [place] [phone] Ruben Squires NP 4 [facility] [address] [place] [address] MRI Abdomen MRCP W WO Contrast Incl 3D Social History Tobacco Use Types Packs/Day Years [...] on file Legal Sex Female 7:54 PM 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 There was a stable small pancreatic cyst noted unchanged from previous imaging and without worrisome features.Lindsey will decide when next MRI is needed or if following is necessary and will give further recommendations. documented in this encounter Plan of Treatment Not on file documented as of this encounter Visit Diagnoses Not on filedocumented in this encounter Care Teams Compressed Gas Equipment Mechanic Relationship Specialty Start Date End Date Juvenal Tapia MD PCP - General Family Practice 10/10/22 documented as of this encounter
--- OUTSIDE RECORDS SUMMARY | 2025-05-12 11:50 | XMS_ITS | Clinical Summary ---
Author Organization [facility] Address 1 [place] [address] Care Team Providers Care Sleeve Setter Name Role Phone Juvenal Tapia MD Primary Care Provider Allergies Active Allergy Reactions Criticality Noted Date Comments Loperamide Hives Medium 04/29/2023 Nifedipine Prednisone Hives Reaction: Hives, , Medications levothyroxine (SYNTHROID) 75 mcg tablet Take 1 tablet (75 mcg total) by mouth director e learning before breakfast Active vit C/E/Zn/coppr/osvaldo tein/zeaxan (PRESERVISION [...] origin Hyponatremia 04/28/2023 Hypothyroidism 04/28/2023 Moderate malnutrition 04/28/2023 Contusion of left shoulder 09/18/2018 Contusion of scalp 09/18/2018 Closed head injury 09/18/2018 History of musculoskeletal disease 08/25/2013 Overview (01/30/2017): History of osteoporosis Encounters Date Type Department Care Team Description 03/17/2025 Results Follow-Up [facility] Gastroenterology at [address] [place] [address] Ruben Squires NP MRI Abdomen MRCP W WO Contrast Incl 3D 03/11/2025 10:58 AM CDT - 03/11/2025 11:59 PM CDT Hospital Encounter [facility] Center 1 [place] [address] Elevated alkaline phosphatase level Discharge Disposition: Discharge to home or self care 03/01/2025 Telephone [facility] Gastroenterology at [address] [place] [address] Ying Denise LPN 03/01/2025 Telephone [facility] Gastroenterology at [address] [place] [address] Ying Denise LPN 02/28/2025 2:00 PM CDT Office Visit [facility] Gastroenterology at [address] [place] [address] Lindsey Vazquez PA Celiac disease (Primary Dx); Hepatic steatosis; Hepatic cyst; Internal hemorrhoids; Elevated alkaline phosphatase level 02/16/2025 Results Follow-Up [facility] Gastroenterology at [address] [place] [address] Mando Donohue MD Surgical pathology from Last 3 Months Surgical History Surgery [...] hip nailing COLONOSCOPY 7-8 yrs ago at [facility] COLONOSCOPY 07/09/2023 Medical History Medical History Date Comments Anemia Anemia; Comments : [facility] 01/02/2015 - Hx Other Medical osteoarthritis; Comments: [facility] 01/02/2015 - Osteoporosis Osteoporosis Hypothyroidism Family [...] on file Legal Sex Female 7:54 PM ACID 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 Gender Identity Not on file Sexual Orientation [...] 02/28/2025 1:56 PM CDT Plan of Treatment Health Maintenance Due Date Last Done Comments Depression Screening 1940 Hepatitis B Screening 1959 Well Visit 65+ 2006 Osteoporosis Screening-Bone Density Scan 09/05/2019 09/05/2017 Covid-19 Vaccine ( - 2023-2 5 season) 2024 10/05/2021, 01/14/2021, 12/24/2020 Influenza Vaccine (Season Ended) 2025 07/24/2022, 08/08/2021, 07/11/2020, Additional history exists Fall Risk Assessment 02/07/2026 02/07/2025 DTaP/Tdap/Td Vaccine (2 - Td or Tdap) 05/17/2031 05/17/2021 Pneumococcal vaccine 65+ Completed 07/11/2020, 07/27 Zoster Vaccine Completed 10/26/2020, 08/21/2020 Procedures Procedure Name Priority Date/Time Associated Diagnosis Comments MRI ABDOMEN MRCP W WO CONTRAST Schedule Routine, Read Routine (OP Routine) 03/11/2025 11:52 AM CDT Elevated alkaline phosphatase level DEXA AXIAL SKELETON BONE DENSITY 1 OR MORE SITES Routine 09/05/2017 4:59 PM ACID CONDENSER from Last 3 Months or Most Recently [...] Neo Romero M.D. NS: NS Report ID: [id number] Reading Location: [id number] Procedure Note Neo Romero MD - 03/17/2025 [...] Neo Romero M.D. NS: NS Report ID: [id number] Reading Location: [id number] [facility] IMG MRI PROCEDURES Final Result * Dexa Axial Skeleton Bone Density 1 or 2 Site (09/05/2017 4:59 PM ACID CONDENSER) Anatomical Region Laterality Modality N/A Nuclear Medicine 09/05/2017 4:59 PM ACID CONDENSER Narrative 09/05/2017 5:40 PM ACID CONDENSER DEXA Bone Density Axial Acc#: [id number] DATE OF EXAM: Sep 05 2017 EXAM: [...] on: Sep 05 2017 11:40A Transcribed by: [facility] On: Sep 05 2017 11:38A Approved Electronically by: DR JOSE R LATIF M.D. on: Sep 05 2017 11:38A Ordering DR: ALLISON JACKSON Attending DR: FREEMAN SANCHEZ Attending: FREEMAN SANCHEZ Requesting: ALLISON JACKSON Requesting Fax: -- Attending Attending ID: [id number] Requesting ID: [id number] Report To 1 ID: [id number] Report To 1 Name: AKASH SANCHEZAN Report To 1 FAX: [phone] NextGen Order #: Procedure Note Miscellaneous, Not In File - 09/13/2017 DEXA Bone Density Axial Acc#: [id number] DATE OF EXAM: Sep 05 2017 EXAM: [...] on: Sep 05 2017 11:40A Transcribed by: [facility] On: Sep 05 2017 11:38A Approved Electronically by: DR JOSE R LATIF M.D. on: Sep 05 2017 11:38A Ordering DR: ALLISON JACKSON Attending DR: FREEMAN SANCHEZ Attending: FREEMAN SANCHEZ Requesting: ALLISON JACKSON Requesting Fax: -- Attending Attending ID: [id number] Requesting ID: [id number] Report To 1 ID: [id number] Report To 1 Name: FREEMAN SANCHEZ Report To 1 FAX: [phone] NextGen Order #: us Physician No IMG DXA PROCEDURES Edited Result - Final from Last 3 Months or Most Recently Relevant to Health Maintenance Insurance MEDICARE [facility] MEDICARE [employer] [place] Advance Directives For more information, please contact: [phone] * Full Code (Latest Code Status on [...] internal / external pacemakerNo cardioversion Care Teams Sleeve Setter Relationship Specialty Start Date End Date Juvenal Tapia MD PCP - General Family Practice 10/10/22
[2025-05-12 19:17] LABS: Albumin Level 3.8 g/dL (3.5-5.1); Anion Gap 8 mmol/L (4-12); Blood Urea Nitrogen 19 mg/dL (7-17); Calcium 9.2 mg/dL (8.4-10.2); Carbon Dioxide 25 mmol/L (22-30); Chloride 104 mmol/L (98-107); Estimated Glomerular Filt Rate > 60; Glucose 97 mg/dL (65-110); Potassium 4.7 mmol/L (3.4-5.0); Sodium 137 mmol/L (137-145)
== END 2025-05-12 11:48 | disposition home or self-care (01) ==
LOC: ANHGOSHLAB 11:49
PROVIDERS: Visit Provider Internal Medicine Endocrinology, Diabetes & Metabolism
DX: E78.5 Hyperlipidemia, unspecified (principal)
CPT/HCPCS: 36415; 80069

== ENCOUNTER 2025-08-22 11:34 | Outpatient (CLI) | payer MEDICARE, OTHER, SELFPAY ==
--- OUTSIDE RECORDS SUMMARY | 2025-08-22 13:16 | XMS_ITS | Clinical Summary ---
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 before breakfast Active vit C/E/Zn/coppr/osvaldo tein/zeaxan (PRESERVISION AREDS-2 ORAL) Take 1 capsule by mouth daily Active cyanocobalamin, vitamin B-12, (VITAMIN B-12 ORAL) Take 1 Caplet by mouth as needed Couple times a month Active iron 18 mg tablet Take by mouth Active vitamin D3-vitamin K2 25 mcg (1,000 unit)-90 mcg tablet,disinteg rating Take 1 capsule by mouth daily Active diphenhydrAMINE (BENADRYL) 25 mg capsule Take 1 tablet/capsul e (25 mg total) by mouth 4 (four) times a day as needed for itching for up to 10 doses 30 capsule 3 Active cholecalciferol (VITAMIN D-3) 50,000 unit capsule Take 1 capsule (50,000 Units total) by mouth 2 (two) times a week Active calcium carbonate (OS-DANIEL) 1,500 mg (600 mg elemental) tablet Take 1 tablet (1,500 mg total) by mouth 2 (two) times a day 5 Active hydrOXYzine (ATARAX) 10 mg tablet Take 1 tablet (10 mg total) by mouth nightly 4 Active denosumab (PROLIA) 60 mg/mL syringe Inject 1 mL (60 mg total) under the skin every 6 (six) months 2 Active CALCIUM ORAL Take 2 capsules by mouth daily 08/04/20 25 Discontinu ed(Dose adjustment ) Active Problems Problem Noted Date Diagnosed Date [...] Encounters Date Type Department Care Team Description 08/04/2025 10:45 AM CDT Office Visit [facility] at [address] [place] [phone] Sravanthi Sun MD Nonrheumatic mitral valve regurgitation (Primary Dx); Shortness of breath 07/27/2025 Results Follow-Up [facility] [employer] [facility] [address] [place] [phone] Sravanthi Sun MD Transthoracic Echo (TTE) Complete W Doppler/CF 07/26/2025 10:10 AM CDT - 07/26/2025 11:59 PM CDT Hospital Encounter [facility] [address] [place] [address] Shortness of breath Discharge Disposition: Discharge to home or self care from Last 3 Months Surgical History Surgery Date Site/Laterality Comments OTHER SURGICAL HISTORY x2 breech births OTHER SURGICAL HISTORY sinus surgery 1989 & 1994 OTHER SURGICAL HISTORY foot surgery 1989 OTHER SURGICAL HISTORY DNC x3 OTHER SURGICAL HISTORY Colonoscopy 01/2009 OTHER SURGICAL HISTORY Dex Scan 01/03 TOTAL ABDOMINAL HYSTERECTOMY W/ BILATERAL SALPINGOOPHORECTOMY AMMTA with BSO CATARACT EXTRACTION Bilateral Cataract extraction TOTAL ABDOMINAL HYSTERECTOMY Hysterectomy, total OTHER SURGICAL HISTORY right hip nailing COLONOSCOPY 7-8 yrs ago at [facility] COLONOSCOPY 07/09/2023 Medical History Medical History Date Comments Anemia Anemia; Comments : [facility] 01/02/2015 - Hx Other Medical osteoarthritis; Comments: [facility] 01/02/2015 - Osteoporosis Osteoporosis Hypothyroidism Family [...] on file Legal Sex Female 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 Gender Identity Not on file Sexual Orientation Not on file Obstetrics History Para Term AB IAB SAB Ectopic Multiple Livin g Live Births 3 3 3 Date Outcome GA Total Labor Labor/2nd/3rd Weight Sex Type Anes PTL Shilpi A1 A5 Name Clin Term Term Term Last Filed Vital Signs Vital Sign Reading Time Taken Comments Blood Pressure 165/70 08/04/2025 11:16 AM CDT Pulse 71 08/04/2025 11:16 AM CDT Temperature 36.1 C (96.9 F) 02/07/2025 1:00 PM CDT Respiratory Rate 18 02/07/2025 1:00 PM CDT Oxygen Saturation 93% 02/28/2025 2:37 PM CDT Inhaled Oxygen Concentration - - Weight 41.1 kg (90 lb 8 oz) 08/04/2025 11:16 AM CDT Height 165.1 cm (5' 5) 08/04/2025 11:16 AM CDT Body Mass Index 15.06 08/04/2025 11:16 AM CDT Plan of Treatment Health Maintenance Due Date Last Done Comments Depression Screening 1940 Hepatitis B Screening 1958 Well Visit 65+ 2006 Osteoporosis Screening-Bone Density Scan 09/05/2019 09/05/2017 Covid-19 Vaccine (2024-2 6 season) 2025 10/05/2021, 01/14/2021, 12/24/2020 Influenza Vaccine (#1) 2025 , 08/08/2021, 08/15/2020, Additional history exists Fall Risk Assessment 02/07/2026 02/07/2025 DTaP/Tdap/Td Vaccine (2 - Td or Tdap) 05/17/2031 05/17/2021 Pneumococcal vaccine 65+ Completed 07/11/2020, 07/27 Zoster Vaccine Completed 10/26/2020, 08/21/2020 Procedures Procedure Name Priority Date/Time Associated Diagnosis Comments ECG 12-LEAD Routine 08/04/2025 11:19 AM CDT Shortness of breath TRANSTHORACIC ECHO (TTE) COMPLETE W DOPPLER/CF WO CONTRAST Routine 07/26/2025 10:43 AM CDT Shortness of breath DEXA AXIAL SKELETON BONE DENSITY 1 OR MORE SITES Routine 09/05/2017 4:59 PM CITY DISPATCHER from Last 3 Months or Most Recently Relevant to Health Maintenance Results * ECG 12 lead (08/04/2025 11:19 AM CDT) us Sravanthi Sun MD ECG ORDERABLES Final Result * TRANSTHORACIC ECHO (TTE) COMPLETE W DOPPLER/CF WO CONTRAST (07/26/2025 10:43 AM CDT) EF Mod BP 64 % CONS SCIMAGE Anatomical Region Laterality Modality Ultrasound 07/26/2025 10:0 8 AM CDT Narrative 07/26/2025 11:57 AM CDT [address] [place] [address] Echocardiogram Report Patient Name: CHARLEEN GREEN : 1940 Study Date: 07/26/2025 10:08:44 AM Sex: F Tech: SITE SAFETY REPRESENTATIVE Location: Echo Lab 1 Ref Provider: SRAVANTHI SUN Height(Cm): 165 BSA: 1.37 Weight(Kg): 40.8 Quality: Adequate Order Provider: SRAVANTHI SUN PROCEDURES: Echocardiographic Report: Transthoracic echocardiogram with complete 2D, M-Mode, and color Doppler examination. INDICATIONS: R06.02 Shortness of breath. MEASUREMENTS: 2D/MM Value Range Doppler Value Range EF Teich MM 64.0 % [ 54.0 - 74.0 ] FERMIN Vmax 3.60 cm2 EF Mod BP 64 % [ 54 - 74 ] AV Mean PG 8 mmHg LVIDd MM 3.80 cm [ 3.80 - 5.20 ] AV Peak Aydin 1.73 m/s [ 1.00 - 1.70 ] LVIDs MM 2.50 cm [ 2.20 - 3.50 ] AV VTI 39.40 cm LVPWd MM 0.90 cm [ 0.60 - 0.90 ] LVOT Diam 2.26 cm IVSd MM 0.80 cm [ 0.60 - 0.90 ] LVOT Peak Aydin 1.56 m/s [ 0.70 - 1.10 ] LA Dimension MM 3.58 cm [ 2.70 - 3.80 ] LVOT VTI 39.84 cm AoR Diam MM 2.86 cm [ 2.70 - 3.70 ] MV E Peak Aydin 1.17 m/s [ 0.60 - 1.30 ] ACS MM 1.20 cm MV A Peak Aydin 1.48 m/s [ 1.00 - 1.20 ] MV Mean PG 3 mmHg MV PHT 70 msec [ 20 - 100 ] MVA 3.10 MV Decel Time 164 msec [ 104 - 258 ] PV Peak Aydin 0.87 m/s [ 0.40 - 0.80 ] TR Peak Aydin 2.68 m/s [ 1.00 - 2.80 ] TR Peak PG 29 mmHg RVSP 32.00 mmHg [ 10.00 - 36.00 ] E` 0.06 m/s E/E` 21.14 [ <= 10.00 ] PA Pressure 32.00 mmHg [ 10.00 - 36.00 ] 2D/MM Value Range Doppler Value Range - FINDINGS: Atrial Septum: Normal atrial septum. Left Ventricle: Normal left ventricular systolic function with no focal wall motion abnormalities. Normal left ventricular size. Normal left ventricular wall thickness. Impaired diastolic relaxation Grade I. Ejection fraction is measured at 64 %. Left Atrium: The left atrium is normal in size. Right Ventricle: Normal right ventricular size. Normal right ventricular systolic function. Right Atrium: The right atrium is normal in size. Aortic Valve: No evidence of hemodynamically significant aortic stenosis by Doppler. Aortic cusps appear mildly sclerotic. Mitral Valve: Mitral valve leaflets appear mildly thickened. Mild mitral annular calcification. Trivial regurgitation of the mitral valve. Pulmonic Valve: Normal structure of the pulmonic valve. No evidence of pulmonic regurgitation. Tricuspid Valve: Normal structure of the tricuspid valve. Normal right ventricular systolic pressure. Mild tricuspid regurgitation. Pericardium: Normal pericardium with no significant pericardial effusion. Aorta: Ascending aorta is normal. There is mild atherosclerosis in the aortic root. IVC: Normal size and normal respiratory collapse consistent with normal right atrial pressure (<5 mmHg). Pulmonary Artery: Pulmonary artery not well visualized. CONCLUSIONS: Normal left ventricular systolic function with no focal wall motion abnormalities. Normal left ventricular size. Normal left ventricular wall thickness. Impaired diastolic relaxation Grade I. Ejection fraction is measured at 64 %. Normal right ventricular size. Normal right ventricular systolic function. Mitral valve leaflets appear mildly thickened. Mild mitral annular calcification. Trivial regurgitation of the mitral valve. No evidence of hemodynamically significant aortic stenosis by Doppler. Aortic cusps appear mildly sclerotic. Normal structure of the tricuspid valve. Normal right ventricular systolic pressure. Mild tricuspid regurgitation. Normal pericardium with no significant pericardial effusion. Electronically Signed By: Roxana Pickens MD 07/26/2025 11:56:48 AM CDT Procedure Note Roxana Pickens MD - 07/26/[address] [address] Echocardiogram Report Patient Name: CHARLEEN GREEN : 1940 Study Date: 07/26/2025 10:08:44 AM Sex: F Tech: SITE SAFETY REPRESENTATIVE Location: Echo Lab 1 Ref Provider: SRAVANTHI SUN Height(Cm): 165 BSA: 1.37 Weight(Kg): 40.8 Quality: Adequate Order Provider: SRAVANTHI SUN PROCEDURES: Echocardiographic Report: Transthoracic echocardiogram with complete 2D, M-Mode, and color Dopplerexamination. INDICATIONS: R06.02 Shortness of breath. MEASUREMENTS: 2D/MM Value Range Doppler ValueRange EF Teich MM 64.0 % [ 54.0 - 74.0 ] FERMIN Vmax 3.60cm2 EF Mod BP 64 % [ 54 - 74 ] AV Mean PG 8 mmHg LVIDd MM 3.80 cm [ 3.80 - 5.20 ] AV Peak Aydin 1.73 m/s[ 1.00 - 1.70 ] LVIDs MM 2.50 cm [ 2.20 - 3.50 ] AV VTI 39.40cm LVPWd MM 0.90 cm [ 0.60 - 0.90 ] LVOT Diam 2.26cm IVSd MM 0.80 cm [ 0.60 - 0.90 ] LVOT Peak Aydin 1.56 m/s[ 0.70 - 1.10 ] LA Dimension MM 3.58 cm [ 2.70 - 3.80 ] LVOT VTI 39.84cm AoR Diam MM 2.86 cm [ 2.70 - 3.70 ] MV E Peak Aydin 1.17 m/s[ 0.60 - 1.30 ] ACS MM 1.20 cm MV A Peak Aydin 1.48 m/s[ 1.00 - 1.20 ] MV Mean PG 3 mmHg MV PHT 70 msec [ 20 - 100 ] MVA 3.10 MV Decel Time 164 msec [ 104 - 258 ] PV Peak Aydin 0.87 m/s [ 0.40 - 0.80 ] TR Peak Aydin 2.68 m/s [ 1.00 - 2.80 ] TR Peak PG 29 mmHg RVSP 32.00 mmHg [ 10.00 - 36.00 ] E` 0.06 m/s E/E` 21.14 [ <= 10.00 ] PA Pressure 32.00 mmHg [ 10.00 - 36.00 ] 2D/MM Value Range Doppler ValueRange - FINDINGS: Atrial Septum: Normal atrial septum. Left Ventricle: Normal left ventricular systolic function with no focal wall motionabnormalities. Normal left ventricular size. Normal left ventricular wall thickness. Impaireddiastolic relaxation Grade I. Ejection fraction is measured at 64 %. Left Atrium: The left atrium is normal in size. Right Ventricle: Normal right ventricular size. Normal right ventricular systolicfunction. Right Atrium: The right atrium is normal in size. Aortic Valve: No evidence of hemodynamically significant aortic stenosis by Doppler.Aortic cusps appear mildly sclerotic. Mitral Valve: Mitral valve leaflets appear mildly thickened. Mild mitral annularcalcification. Trivial regurgitation of the mitral valve. Pulmonic Valve: Normal structure of the pulmonic valve. No evidence of pulmonicregurgitation. Tricuspid Valve: Normal structure of the tricuspid valve. Normal right ventricular systolicpressure. Mild tricuspid regurgitation. Pericardium: Normal pericardium with no significant pericardial effusion. Aorta: Ascending aorta is normal. There is mild atherosclerosis in the aorticroot. IVC: Normal size and normal respiratory collapse consistent with normal rightatrial pressure (<5 mmHg). Pulmonary Artery: Pulmonary artery not well visualized. CONCLUSIONS: Normal left ventricular systolic function with no focal wall motionabnormalities. Normal left ventricular size. Normal left ventricular wall thickness. Impaireddiastolic relaxation Grade I. Ejection fraction is measured at 64 %. Normal right ventricular size. Normal right ventricular systolicfunction. Mitral valve leaflets appear mildly thickened. Mild mitral annularcalcification. Trivial regurgitation of the mitral valve. No evidence of hemodynamically significant aortic stenosis by Doppler.Aortic cusps appear mildly sclerotic. Normal structure of the tricuspid valve. Normal right ventricular systolicpressure. Mild tricuspid regurgitation. Normal pericardium with no significant pericardial effusion. Electronically Signed By: Roxana Pickens MD 07/26/2025 11:56:48 AM CDT Sravanthi Sun MD CV ECHO PROCEDURES Fin al Result * Dexa Axial Skeleton Bone Density 1 or 2 Site (09/05/2017 4:59 PM CITY DISPATCHER) Anatomical Region Laterality Modality N/A Nuclear Medicine 09/05/2017 4:59 PM CITY DISPATCHER Narrative 09/05/2017 5:40 PM CITY DISPATCHER DEXA Bone Density Axial Acc#: [id number] DATE OF EXAM: Sep 05 2017 EXAM: [...] on: Sep 05 2017 11:40A Transcribed by: [facility] On: Sep 05 2017 11:38A Approved Electronically by: BHAVYA Aguilar, DR BORGES on: Sep 05 2017 11:38A Ordering DR: ALLISON JACKSON Attending DR: FREEMAN SANCHEZ Attending: FEREMAN SANCHEZ Requesting: ALLISON JACKSON Requesting Fax: -- Attending Attending ID: [id number] Requesting ID: [id number] Report To 1 ID: [id number] Report To 1 Name: FREEMAN SANCHEZ Report To 1 FAX: [phone] NextGen Order #: Procedure Note Miscellaneous, Not In File - 09/13/2017 DEXA Bone Density Axial Acc#: [id number] DATE OF EXAM: Sep 05 2017 EXAM: [...] JACKSON Requesting Fax: -- Attending Attending ID: [id number] Requesting ID: [id number] Report To 1 ID: [id number] Report To 1 Name: FREEMAN SANCHEZ Report To 1 FAX: [phone] NextGen Order #: us Physician No IMG DXA PROCEDURES Edited Result - Final from Last 3 Months or Most Recently Relevant to Health Maintenance Insurance MEDICARE [facility] MEDICARE [employer] Advance Directives For more information, please contact: [phone] * Full Code (Latest Code Status on [...] internal / external pacemakerNo cardioversion Care Teams Air Conditioning Insulation Installer Relationship Specialty Start Date End Date Juvenal Tapia MD PCP - General Family Practice 10/10/22
--- OUTSIDE RECORDS SUMMARY | 2025-08-22 13:16 | XMS_ITS | Clinical Summary ---
Author Organization [facility] Care Team Providers Care Spare Person Name Role Phone Unavailable Primary Care Provider [...] 1-dose 75+ series) 2016 Influenza Immunization (#1) 06/27/202507/27, 07/11/2020, 08/25/2019, Additional history exists SARS-COV-2 Immunization ( season) 2025 10/05/2021, 01/14/2021, 12/24/2020 Pneumococcal Immunization (50+ years) [...]
--- OUTSIDE RECORDS SUMMARY | 2025-08-22 13:16 | XMS_ITS | Clinical Summary ---
Author Organization [facility] Address [address] [address] Care Team Providers Care Airplane Engineer Name Role Phone Juvenal Tapia MD Primary Care Provider Source Comments [facility],non-owned Affiliates and Associated Physician Practices is amultiple site organization consisting of ambulatory clinics and hospital sitesin [place], [place], [place] and [place]. This disclosure is being madepursuant to the Care Everywhere program and may not contain all information available regarding this patient. 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
[2025-08-22 13:18] LABS: Hematocrit 42.3 % (37.0-47.0); Hemoglobin 13.0 g/dL (12.0-15.0); Immature Granulocyte Percent A 0.3 % (0-0.5); Lymphocytes Absolute Auto 1.16 K/mm3 (0.9-3.2); Mean Corpuscular HGB Conc 30.7 g/dl (32-36); Mean Corpuscular Hemoglobin 28.0 pg (26-34); Mean Corpuscular Volume 91.0 fl (80-100); Nucleated Red Blood Cells Absolute Auto 0.000 K/mm3 (0.0-0.012); Nucleated Red Blood Cells Perc 0.0 % (0.0-0.2); Platelet Count Result 283 k/mm3 (150-375); Red Blood Count 4.65 M/mm3 (4.2-5.4); White Blood Count 6.1 K/mm3 (4.5-10.0)
[2025-08-22 13:21] LABS: Alanine Aminotransferase 33 U/L (6-35); Albumin Level 4.3 g/dL (3.5-5.1); Alkaline Phosphatase 77 U/L (38-126); Anion Gap 10 mmol/L (4-12); Aspartate Amino Transferase 56 U/L (14-36); Bilirubin,Total 0.4 mg/dL (0.2-1.3); Blood Urea Nitrogen 19 mg/dL (7-17); Calcium 9.1 mg/dL (8.4-10.2); Carbon Dioxide 27 mmol/L (22-30); Chloride 104 mmol/L (98-107); Cholesterol 181 mg/dL (0-200); Estimated Glomerular Filt Rate 60; Glucose 101 mg/dL (65-110); HDL Direct 44 mg/dL; Potassium 5.0 mmol/L (3.4-5.0); Sodium 141 mmol/L (137-145); Total Protein 8.6 g/dL (6.3-8.2); Triglycerides 96 mg/dL (<150)
[2025-08-22 13:40] LABS: Free T4 Free Thyroxine 2.03 ng/dL (0.78-2.19)
[2025-08-22 13:57] LABS: Thyroid Stimulating Hormone 3.610 uIU/mL (0.465-4.680)
== END 2025-08-22 11:35 | disposition home or self-care (01) ==
PROVIDERS: PCP Nurse Practitioner Family; Visit Provider Nurse Practitioner Family
DX: E78.5 Hyperlipidemia, unspecified (principal); I10 Essential (primary) hypertension; E03.9 Hypothyroidism, unspecified; E55.9 Vitamin D deficiency, unspecified
CPT/HCPCS: 36415; 80053; 80061; 82306; 84439; 84443; 85025